=== PATIENT | male | born 1950 | race Hispanic/Latino ===

== ENCOUNTER 2018-09-15 07:32 | Inpatient (IN) | payer MEDICARE, BC ==
[2018-09-15 07:32] VITALS: BMI 28.1
[2018-09-15] MEDS ORDERED: Sodium Chloride 0.9% 500 ML IV ONE ×2 (08:12→09:09)
[2018-09-15 08:30] LABS: BASO % 0.1 % (0.0-2.0); HEMOGLOBIN 6.9 g/dL (12.0-18.0); LYMPH # 0.8 K/uL (1.0-4.3); LYMPH % 5.3 % (20.0-40.0); MEAN CELL VOLUME 121.4 fL (80.0-94.0); MEAN CORPUSCULAR HEMOGLOBIN 38.7 pg (27.0-31.0); MEAN CORPUSCULAR HGB CONC 31.9 g/dL (33.0-37.0); MEAN PLATELET VOLUME 10.6 fL (7.2-11.7); MONO # 0.8 K/uL (0.0-0.8); MONO % 5.4 % (0.0-10.0); NEUT # 13.2 K/uL (1.8-7.0); NEUT % 89.2 % (50.0-75.0); NRBC % 0.8 % (0.0-2.0); PLATELET COUNT 132 K/uL (130-400); RBC 1.79 Mil/uL (4.40-5.90); RED CELL DISTRIBUTION WIDTH 19.3 % (11.5-14.5); WHITE BLOOD COUNT 14.8 K/uL (4.8-10.8)
[2018-09-15 08:52] LABS: TROPONIN I 0.061 ng/mL (0.00-0.120)
[2018-09-15 08:57] LABS: ALB/GLOB RATIO 0.9 (1.0-2.1); ALBUMIN 2.5 g/dL (3.5-5.0); CALCIUM 8.4 mg/dl (8.6-10.4)
[2018-09-15 08:58] LABS: VENOUS BLOOD GAS PCO2 30 mmHg (40-60); VENOUS BLOOD GAS PO2 13 mm/Hg (30-55)
--- NOTE | 2018-09-15 09:00 | C.PDOC ---
History Of Present Illness Patient BIBA for evaluation of multiple falls at home (3) over the last two days. He states he thinks he fell off his recliner (both backwards and forwards) because he has a slippery cover on it. Patient admits to feeling generalized weakness, but denies chest pain, palpitations, dizziness, nausea/vomiting, facial droop, slurred speech, focal extremity weakness. PMhx of HTN, anemia, gout, PVD, cigarette smoking. - HPI Time Seen by Provider: 09/15/18 07:38 Chief Complaint (Nursing): Trauma History Per: Patient, EMS History/Exam Limitations: no limitations Onset/Duration Of Symptoms: Days (2) Location Of Injury: Right: Leg (B/L lower leg shins kin avulsions ), Left: Leg, Anterior: Leg Severity: Moderate Past Medical History Reviewed: Historical Data, Nursing Documentation, Vital Signs Vital Signs: Last Vital Signs Temp 94.4 F L 09/15/18 08:01 Pulse 58 L 09/15/18 08:07 Resp 20 09/15/18 08:07 BP 93/50 L 09/15/18 08:01 Pulse Ox 99 09/15/18 08:07 - Medical History PMH: Fractures ("I broke my Left foot 1988"), HTN Surgical History: Tonsillectomy (At 3 years old) - [facility] Procedures ANGIOPLASTY OF OTHER NON-CORONARY VESSEL(S) (05/01/14) DILATE R FEM ART W INTRALUM DEV, DRUG BLLN, PERC (02/07/16) EXCISION OF RIGHT KNEE TENDON, OPEN APPROACH (02/07/16) EXCISION OF RIGHT LOWER LEG MUSCLE, OPEN APPROACH (02/07/16) EXTIRPATION OF MATTER FROM R FEM ART, PERC APPROACH (02/07/16) INSEJ [id number] PERIPHERAL NON-CORONARY VES STENT(S) (05/01/14) INSERTION OF TWO VASCULAR STENTS (05/01/14) INTRODUCE OF OT THROMBOLYTIC INTO PERIPH ART, PERC APPROACH (02/07/16) PROCEDURE ON TWO VESSELS (05/01/14) REPLACE R LOW LEG SKIN W AUTOL SUB, FULL THICK, SHADE HANGER (02/07/16) REPLACE R LOW LEG SKIN W AUTOL SUB, PART THICK, SHADE HANGER (02/07/16) TRANSFUSE NONAUT RED BLOOD CELLS IN PERIPH VEIN, PERC (02/07/16) Family History: States: No Known Family Hx - Social History Hx Alcohol Use: Yes (2X WEEK) Hx Substance Use: No - Immunization History Hx Tetanus Toxoid Vaccination: No Hx Influenza Vaccination: No Hx Pneumococcal Vaccination: No Review Of Systems Constitutional: Positive for: Weakness (generalized). Negative for: Fever, Chills Cardiovascular: Negative for: Chest Pain, Palpitations Respiratory: Positive for: Shortness of Breath Gastrointestinal: Negative for: Nausea, Vomiting, Abdominal Pain, Diarrhea Skin: Positive for: Other (abrasions/avulsion). Negative for: Rash Neurological: Negative for: Weakness, Numbness, Incoordination, Change in Speech, Confusion, Seizures, Altered Mental Status, Headache, Dizziness Physical Exam - Physical Exam Appears: Well, Non-toxic, No Acute Distress Skin: Dry, Pale, Other (B/L upper arm ecchymoses, B/L leg skin avulsions ) Head: Normacephalic Eye(s): bilateral: Normal Inspection ((-) [place] eyes), PERRL, EOMI Ear(s): Bilateral: Normal ((-) Hicks sign ) Nose: No Deformity, No Septal Hematoma, Other (dried blood in B/L nares, no act jaki epistaxis, no deformity ) Oral Mucosa: Moist Tongue: Normal Appearing, No Laceration Neck: Normal, No Midline Cervical Tenderness, No Paracervical Tenderness, No Step Off Deformity, Supple Cardiovascular: Rhythm Irregular (bradycardic, irregularly irregular ) Respiratory: Normal Breath Sounds, No Rales, No Rhonchi, No Wheezing Gastrointestinal/Abdominal: Normal Exam, Bowel Sounds, Soft, No Tenderness Extremity: No Calf Tenderness, No Deformity, Other (chronic leg edema and skin changes ) Pulses: Left Dorsalis Pedis: Normal, Right Dorsalis Pedis: Normal Neurological/Psych: Oriented x3, Normal Speech, Normal Cognition ED Course And Treatment - Laboratory Results Result Diagrams: 09/20/18 06:46 09/23/18 06:42 ECG: Interpreted By Me, Viewed By Me (atrial fibrillation 53 bpm, left axis deviation, RBBB,Q waves, III, aVF, V2-V3) ECG Interpretation: Abnormal O2 Sat by Pulse Oximetry: 99 (RA) Pulse Ox Interpretation: Normal - CT Scan/US CT HEAD Other Rad Studies (CT/US): Read By Radiologist, Radiology Report Reviewed CT/US Interpretation: Accession No. : [id number]. Patient Name / ID : SHY REID / [id number]. Exam Date : 09/15/2018 09:07:04 ( Approved ). Study Comment : Sex / Age : M / 68Y. Creator : Ryan Potter MD. Dictator : Ryan Potter MD. Instructional Technology Facilitator : Student Support Advisor : Ryan Potter MD. Approver2 : Report Date : 09/15/2018 09:43:51. My Comment : . Date of service: 09/15/2018. PROCEDURE: CT HEAD WITHOUT CONTRAST. HISTORY: head injury. COMPARISON: Correlation made with concurrent CT scan of the maxillofacial skeleton. TECHNIQUE: Axial computed tomography images were obtai tristen through the head/brain without intravenous contrast. Radiation dose: Total exam DLP = 1290.28 mGy-cm. This CT exam was performed using one or more of the following dose reduction techniques: Automated exposure control, adjustment of the mA and/or kV according to patient size, and/or use of iterative reconstruction technique. FINDINGS: HEMORRHAGE: No acute parenchymal, subarachnoid or extra-axial hemorrhage. BRAIN: Mild-moderate chronic microvascular ischemic changes seen extending peripherally into the deep and subcortical white matter both cerebral hemispheres. No obvious parenchymal nor extra-axial mass or collection seen on this noncontrast study. Moderate generalized volume loss. VENTRICLES: No obstructive hydrocephalus. CALVARIUM: Unremarkable. PARANASAL SINUSES: Unremarkable as visualized. No significant inflammatory changes. MASTOID AIR CELLS: Unremarkable as visualized. No inflammatory changes. OTHER FINDINGS: None. IMPRESSION: No acute intracranial hemorrhage. Mild moderate chronic white matter ischemic changes. Moderate generalized volume loss. CT FACIAL Other Rad Studies (CT/US): Read By Radiologist, Radiology Report Reviewed CT/US Interpretation: Accession No. : [id number]. Patient Name / ID : SHY REID / [id number]. Exam Date : 09/15/2018 09:10:57 ( Approved ). Study Comment : Sex / Age : M / 68Y. Creator : Ryan Potter MD. Dictator : Ryan Potter MD. Instructional Technology Facilitator : Student Support Advisor : Ryan Potter MD. Approver2 : Report Date : 09/15/2018 10:00:11. My Comment : . Date of service: 09/15/2018. PROCEDURE: CT MAXILLOFACIAL BONES WITHOUT CONTRAST. HISTORY: Facial injury after fall. COMPARISON: Comparison made with concurrent CT scan maxillofacial skeleton. TECHNIQUE: Contiguous axial CT images of the maxillofacial bones were obtained. Coronal and sagittal reformats were generated. Radiation dose: Total exam DLP = 701.04 mGy-cm. This CT exam was performed using one or more of the following dose reduction techniques: Automated exposure control, adjustment of the mA and/or kV according to patient size, and/or use of iterative reconstruction technique. FINDINGS: NASAL BONES: Unremarkable. ORBITS: Unremarkable. PARANASAL SINUSES/ MASTOIDS: Mucosal thickening noted within 2 or 3 right-sided ethmoid air cells. MAXILLA: Unremarkable. MANDIBLE/ TEMPOROMANDIBULAR JOINTS: Unremarkable. SKULL BASE: Unremarkable. TEMPORAL BONES: Middle ears and mastoid grossly unremarkable. OTHER FINDINGS: Orbits and contents unremarkable. Globes intact and lenses appropriately located. There are no retrobulbar hemorrhages or collections. Optic nerves and extraocular musculature unremarkable. IMPRESSION: No evidence of acute maxillofacial skeletal fractures. Progress Note: Blood work, EKG, CT head and facial bones, UA, CXR ordered and reviewed. Patient placed under aman hugger (hypothermic). IV NS bolus, broad s pectrum antibiotics given (meets Code Sepsis criteria). Patient also hyperkalemic with QRS widening on EJG (RBBB) - IV Calcium gluconate, IV insulin + D50 amp, bicarb IV given. Patient anemic with (+) SFOB - IV PRBCs ordered. - Physician Consult Information Physician Contacted: Jayden Ruth Outcome Of Conversation: Discussed patient with PMD, he would like patient admitted under Dr. Gallardo. Patient has h/o ETOH abuse and has gone into withdrawal during prior admissions. (+) PMHx of atrial fibrillation, placed on Eliquis approx 6 months ago (?Dr. Rosas). Disposition - Disposition Disposition: HOSPITALIZED Disposition Time: 10:17 Condition: SERIOUS - Clinical Impression Clinical Impression: Severe anemia, ARF (acute renal failure), Elevated CK, Hyperkalemia, Dehydration, Elevated brain natriuretic peptide (BNP) level Critical Care Time - Critical Care Note Total Time (in mins): 50 Documented critical care: time excludes all time spent performing seperately billable procedures. Decision To Admit - Pt Status Changed To: Hospital Disposition Of: Inpatient - Admit Certification Admit to Inpatient:: After my assessment, the patient will require hospitalizat ion for at least two midnights. This is because of the severity of symptoms shown, intensity of services needed, and/or the medical risk in this patient being treated as an outpatient. - InPatient: Physician Admission Certification: I certify that this patient requires 2 or more midnights of care for the following reason:: see notes - . Bed Request Type: ICU Admitting Physician: Denise Gallardo Patient Diagnosis: Severe anemia, Occult blood in stools, ARF (acute renal failure), Dehydration, Hyperkalemia, Elevated CK, Elevated brain natriuretic peptide (BNP) level
[2018-09-15 09:03] LABS: BANDS 2 % (0-2); LYMPHOCYTE 5 % (20-40); MONOCYTE 3 % (0-10); NEUTROPHIL 90 % (50-75); NUCLEATED RED BLOOD CELL 2 % (0-0); PLATELET ESTIMATE NORMAL (NORMAL); TOTAL CELLS COUNTED 100
[2018-09-15 09:07] LABS: ANISOCYTOSIS MODERATE
[2018-09-15 09:08] LABS: HYPOCHROMIC SLIGHT; OVALOCYTES SLIGHT; POIKILOCYTOSIS SLIGHT; POLYCHROMIC SLIGHT
[2018-09-15 09:09] LABS: LARGE PLATELETS PRESENT; SCHISTOCYTES SLIGHT
[2018-09-15 09:10] LABS: GIANT PLATELETS PRESENT; TOXIC GRANULATION PRESENT
[2018-09-15] MEDS ORDERED: Cefepime 1 GM in Sodium Chloride 0.9% 50 ML IVPB STA (09:11)
[2018-09-15] MEDS ORDERED: Vancomycin 1 GM 1 GM/250 ML BAG IV STA (09:11)
[2018-09-15] MEDS ORDERED: Moxifloxacin IV 400mg/250ml NS 400 MG/250 ML BAG IV STA (09:12)
[2018-09-15] MEDS ORDERED: (Novolin R) Insulin Human Regular 100 units/ml vial IVP ONE (09:33)
[2018-09-15] MEDS ORDERED: Dextrose 50% SYRINGE Inj (50 ml) IVP STA (09:34)
[2018-09-15] MEDS ORDERED: Sodium Bicarbonate (8.4%) 50 Meq Syringe IVP ONE (09:34)
--- NOTE | 2018-09-15 09:47 | CT ---
Date of service: 09/15/2018 PROCEDURE: CT HEAD WITHOUT CONTRAST. HISTORY: head injury COMPARISON: Correlation made with concurrent CT scan of the maxillofacial skeleton. TECHNIQUE: Axial computed tomography images were obtained through the head/brain without intravenous contrast. Radiation dose: Total exam DLP = 1290.28 mGy-cm. This CT exam was performed using one or more of the following dose reduction techniques: Automated exposure control, adjustment of the mA and/or kV according to patient size, and/or use of iterative reconstruction technique. FINDINGS: HEMORRHAGE: No acute parenchymal, subarachnoid or extra-axial hemorrhage. BRAIN: Mild-moderate chronic microvascular ischemic changes seen extending peripherally into the deep and subcortical white matter both cerebral hemispheres No obvious parenchymal nor extra-axial mass or collection seen on this noncontrast study Moderate generalized volume loss VENTRICLES: No obstructive hydrocephalus. CALVARIUM: Unremarkable. PARANASAL SINUSES: Unremarkable as visualized. No significant inflammatory changes. MASTOID AIR CELLS: Unremarkable as visualized. No inflammatory changes. OTHER FINDINGS: None. IMPRESSION: No acute intracranial hemorrhage. Mild moderate chronic white matter ischemic changes. Moderate generalized volume loss.
[2018-09-15] MEDS ORDERED: Dextrose 50% SYRINGE Inj (50 ml) ONE (09:59)
[2018-09-15] MEDS ORDERED: Calcium Gluconate 4.65 mEq/10 ml Inj ONE (09:59)
[2018-09-15] MEDS ORDERED: Sodium Bicarbonate (8.4%) 50 Meq Syringe ONE (09:59)
[2018-09-15] MEDS ORDERED: (Novolin R) Insulin Human Regular 100 units/ml vial ONE (09:59)
--- NOTE | 2018-09-15 10:03 | CT ---
Date of service: 09/15/2018 PROCEDURE: CT MAXILLOFACIAL BONES WITHOUT CONTRAST HISTORY: Facial injury after fall COMPARISON: Comparison made with concurrent CT scan maxillofacial skeleton. TECHNIQUE: Contiguous axial CT images of the maxillofacial bones were obtained. Coronal and sagittal reformats were generated. Radiation dose: Total exam DLP = 701.04 mGy-cm. This CT exam was performed using one or more of the following dose reduction techniques: Automated exposure control, adjustment of the mA and/or kV according to patient size, and/or use of iterative reconstruction technique. FINDINGS: NASAL BONES: Unremarkable. ORBITS: Unremarkable. PARANASAL SINUSES/ MASTOIDS: Mucosal thickening noted within 2 or 3 right-sided ethmoid air cells MAXILLA: Unremarkable. MANDIBLE/ TEMPOROMANDIBULAR JOINTS: Unremarkable. SKULL BASE: Unremarkable. TEMPORAL BONES: Middle ears and mastoid grossly unremarkable. OTHER FINDINGS: Orbits and contents unremarkable. Globes intact and lenses appropriately located. There are no retrobulbar hemorrhages or collections. Optic nerves and extraocular musculature unremarkable. IMPRESSION: No evidence of acute maxillofacial skeletal fractures.
[2018-09-15 10:13] LABS: SQUAMOUS EPITHIAL 1 /hpf (0-5); URINE AMORPHOUS SEDIMENT RARE /ul (<OCC); URINE BACTERIA OCC (<OCC); URINE BILIRUBIN NEGATIVE (NEGATIVE); URINE CLARITY Clear (Clear); URINE COLOR Yellow (YELLOW); URINE GLUCOSE (UA) NORMAL (Normal); URINE LEUKOCYTE ESTERASE NEG Leu/uL (Negative); URINE PROTEIN NEGATIVE (NEGATIVE); URINE UROBILINOGEN NORMAL mg/dL (0.2-1.0)
[2018-09-15 10:14] LABS: URINE BLOOD TRACE-LYSED (NEGATIVE)
[2018-09-15] MEDS ORDERED: Tetanus/Diphtheria Toxoids 0.5 ml Syringe IM ONE ×2 (10:22→10:51)
[2018-09-15 10:51] LABS: PROTHROMBIN TIME 42.7 SECONDS (9.7-12.2)
--- NOTE | 2018-09-15 10:52 | CP.PCM.CON ---
History of Present Illness - History of Present Illness History of Present Illness: Chief complaint: Frequent falls HPI: 68-year-old male brought in by ambulance because he was falling more frequently over the 3 days duration. Patient had a multiple falls front side as well as in the back. He had a multiple ecchymosis in the skin over the legs, upper extremity as well as in the face. He has some bleeding right nostril, and the gums noted. Patient is living by himself. Usually patient walking with a cane, but recently his condition got worse. He is not able to eat anything by mouth. He is also not able to drink much for 2 days Patient had a similar incident in the past at the time he had injury to the right leg which was treated conservatively and he had a scar tissues from that on the right leg. Patient is to be a heavy smoker in the past quit at least 4 years ago. I saw him in my office for evaluation of the left to pleural effusion. At that time his creatinine level was 1.7, 3 months ago. Now having increasing pain in the back. Also comparing of generalized pain. Body aches. Weakness. Patient is also taking oral anticoagulation. Past medical history: Peripheral vascular disease, atrial fibrillation, hypertension, chronic renal failure. Allergy penicillin, but able to tolerate cephalosporin as per ID. Surgical history: Patient has a surgical intervention to the right open wound in the right l eg.History of fractures. Tonsillectomy in the past. Social history: Patient used to be a smoker in the past. More than 30 pack per year history. Patient currently lives by himself. Review of system: Patient has now mild headache. But he is very weak and tired looking. Hypothermia. Chills and fever noted. Coughing present. His c/o abdominal pain. Multiple extremities skin changes noted. Excoriation present. Old healed right leg ulcer On examination: Patient is on hyperthermic blanket now. Vital signs noted, bradycardia noted. Saturation is normal. On room air 100%. Patient is thin and emaciated. Patient also has a multiple skin excoriations in the both lower extremities, right upper and right left upper extremity. Patient has dried the blood in the right nostril and the gums noted. Patient also has a dark stools Labs reviewed Hemoglobin 6.9 Also elevated potassium level noted Elevated BUN and creatinine level noted Chest x-ray nonspecific. Elevated CPK levels. No Urine analysis pending CT head is negative CT facial bones negative for fracture Assessment and plan: 68-year-old male with a history of atrial fibrillation, history of PVD, hypertension, history of gout in the past. History of smoking, and possible COPD. Patient now admitted with the recurrent fall, CAT scan of the head negative. Facial CAT scan negative also But the patient has a multiple ecchymosis. Stool guaiac positive. In my opinion, patient possibly has a GI bleed and associated with a coagulopathy secondary to anticoagulation. Will hold of the anticoagulation. Proton pump inhibitor treatment. GI evaluation. Elevated creatinine level, and potassium level noted. Will get it renal evaluation. Bicarbonate drip. Antibiotic as per ID. Breasts monitoring. Transfusion I will follow the patient. over all prognosis very poor Sepsis with hypothermia and possible dehydration Past Patient History - Tetanus Immunizations Tetanus Immunization: Refused - Past Medical History & Family History Past Medical History?: Yes - Past Social History Smoking Status: Former Smoker - CARDIAC Hx Hypertension: Yes - PULMONARY Hx Respiratory Disorders: No - NEUROLOGICAL Hx Neurological Disorder: No Hx Paralysis: No Hx Vertigo: No - HEENT Hx Deafness: (mild decrease) - RENAL Hx Chronic Kidney Disease: No - ENDOCRINE/METABOLIC Hx Endocrine Disorders: No - HEMATOLOGICAL/ONCOLOGICAL Hx Blood Disorders: No Hx Blood Transfusions: No Hx Blood Transfusion Reaction: No - INTEGUMENTARY Hx Dermatological Problems: No - MUSCULOSKELETAL/RHEUMATOLOGICAL Hx Fractures: Yes ("I broke my Left foot 1988") - GASTROINTESTINAL Hx Gastrointestinal Disorders: No - GENITOURINARY/GYNECOLOGICAL Hx Genitourinary Disorders: No - PSYCHIATRIC Hx Substance Use: No - SURGICAL HISTORY Hx Tonsillectomy: Yes (At 3 years old) - ANESTHESIA Hx Anesthesia: Yes Hx Anesthesia Reactions: No Hx Malignant Hyperthermia: No Meds Allergies/Adverse Reactions: Allergies Allergy/AdvReac Type Severity Reaction Status Date / Time Penicillins Allergy Verified 02/07/16 17:02 - Medications Medications: Current Medications Chlordiazepoxide (Librium) 0 mg PO Q6 CADY; Taper Stop: 09/19/18 11:59 Chlordiazepoxide (Librium) 25 mg PO Q4H PRN PRN Reason: Alcohol Withdrawal Pantoprazole Sodium 80 mg/ (Sodium Chloride) 100 mls @ 10 mls/hr IVPB .Q10H CADY Pantoprazole Sodium 80 mg/ (Sodium Chloride) 100 mls @ 1,200 mls/hr IV ONCE ONE Stop: 09/15/18 11:04 Results - Vital Signs Recent Vital Signs: Last Vital Signs Temp 94.4 F L 09/15/18 08:01 Pulse 59 L 09/15/18 09:50 Resp 20 09/15/18 09:50 BP 107/49 L 09/15/18 09:50 Pulse Ox 99 09/15/18 10:44 - Labs Result Diagrams: 09/15/18 08:17 09/15/18 08:17 Labs: Laboratory Results - last 24 hr 09/15/18 09/15/18 09/15/18 08:17 08:17 08:17 WBC 14.8 H D RBC 1.79 L Hgb 6.9 L Hct 21.7 L MCV 121.4 H D MCH 38.7 H MCHC 31.9 L RDW 19.3 H Plt Count 132 D MPV 10.6 Neut % (Auto) 89.2 H Lymph % (Auto) 5.3 L [place] % (Auto) 5.4 Eos % (Auto) 0.0 Baso % (Auto) 0.1 Neut # (Auto) 13.2 H Lymph # (Auto) 0.8 L [place] # (Auto) 0.8 Eos # (Auto) 0.0 Baso # (Auto) 0.0 Neutrophils % (Manual) 90 H Band Neutrophils % 2 Lymphocytes % (Manual) 5 L Monocytes % (Manual) 3 Nucleated RBC % 2 H Toxic Granulation Present Platelet Estimate Normal Large Platelets Present Giant Platelets Present Polychromasia Slight Hypochromasia (manual) Slight Poikilocytosis (manual Slight Anisocytosis (manual) Moderate Macrocytosis (manual) Moderate Ovalocytes Slight Schistocytes Slight Retic Count APTT 35 H pO2 VBG pH VBG pCO2 VBG HCO3 VBG Total CO2 VBG O2 Sat (Calc) VBG Base Excess VBG Potassium Glucose Lactate FiO2 Crit Value Called To Crit Value Called By Crit Value Read Back Blood Gas Notified Time Sodium 141 Potassium 6.7 H* D Chloride 115 H Carbon Dioxide 9 L* D Anion Gap 23 H BUN 73 H Creatinine 3.1 H Est GFR ( Amer) 24 Est GFR (Non-Af Amer) 20 Random Glucose 86 Calcium 8.4 L Total Bilirubin 1.7 H AST 84 H ALT 23 Alkaline Phosphatase 92 Total Creatine Kinase 1571 H CK-MB (Mass) 17.0 H Troponin I 0.0610 NT-Pro-B Natriuret Pep 73509 H Total Protein 5.4 L Albumin 2.5 L Globulin 2.9 Albumin/Globulin Ratio 0.9 L Venous Blood Potassium Urine Color Urine Clarity Urine pH Ur Specific [place] Urine Protein Urine Glucose (UA) Urine Ketones Urine Blood Urine Nitrate Urine Bilirubin Urine Urobilinogen Ur Leukocyte Esterase Urine WBC (Auto) Urine RBC (Auto) Ur Squamous Epith Cells Amorphous Sediment Urine Bacteria Hyaline Casts Stool Occult Blood Blood Type Antibody Screen 09/15/18 09/15/18 09/15/18 08:53 09:09 09:41 WBC RBC Hgb Hct MCV MCH MCHC RDW Plt Count MPV Neut % (Auto) Lymph % (Auto) [place] % (Auto) Eos % (Auto) Baso % (Auto) Neut # (Auto) Lymph # (Auto) [place] # (Auto) Eos # (Auto) Baso # (Auto) Neutrophils % (Manual) Band Neutrophils % Lymphocytes % (Manual) Monocytes % (Manual) Nucleated RBC % Toxic Granulation Platelet Estimate Large Platelets Giant Platelets Polychromasia Hypochromasia (manual) Poikilocytosis (manual Anisocytosis (manual) Macrocytosis (manual) Ovalocytes Schistocytes Retic Count APTT pO2 13 L VBG pH 7.20 L VBG pCO2 30 L VBG HCO3 10.8 VBG Total CO2 12.6 L VBG O2 Sat (Calc) 17.9 L VBG Base Excess -15.0 L VBG Potassium 6.6 H* Glucose 92 Lactate 5.5 H* FiO2 21.0 Crit Value Called To Mervin tolentino Crit Value Called By Vaibhav Crit Value Read Back Y Blood Gas Notified Time 856 Sodium 140.0 Potassium Chloride 118.0 H Carbon Dioxide Anion Gap BUN Creatinine Est GFR ( Amer) Est GFR (Non-Af Amer) Random Glucose Calcium Total Bilirubin AST ALT Alkaline Phosphatase Total Creatine Kinase CK-MB (Mass) Troponin I NT-Pro-B Natriuret Pep Total Protein Albumin Globulin Albumin/Globulin Ratio Venous Blood Potassium 6.6 H* Urine Color Urine Clarity Urine pH Ur Specific [place] Urine Protein Urine Glucose (UA) Urine Ketones Urine Blood Urine Nitrate Urine Bilirubin Urine Urobilinogen Ur Leukocyte Esterase Urine WBC (Auto) Urine RBC (Auto) Ur Squamous Epith Cells Amorphous Sediment Urine Bacteria Hyaline Casts Stool Occult Blood Positive H Blood Type B POSITIVE Antibody Screen Negative 09/15/18 09/15/18 09:59 10:33 WBC RBC Hgb Hct MCV MCH MCHC RDW Plt Count MPV Neut % (Auto) Lymph % (Auto) [place] % (Auto) Eos % (Auto) Baso % (Auto) Neut # (Auto) Lymph # (Auto) [place] # (Auto) Eos # (Auto) Baso # (Auto) Neutrophils % (Manual) Band Neutrophils % Lymphocytes % (Manual) Monocytes % (Manual) Nucleated RBC % Toxic Granulation Platelet Estimate Large Platelets Giant Platelets Polychromasia Hypochromasia (manual) Poikilocytosis (manual Anisocytosis (manual) Macrocytosis (manual) Ovalocytes Schistocytes Retic Count 5.1 H APTT pO2 VBG pH VBG pCO2 VBG HCO3 VBG Total CO2 VBG O2 Sat (Calc) VBG Base Excess VBG Potassium Glucose Lactate FiO2 Crit Value Called To Crit Value Called By Crit Value Read Back Blood Gas Notified Time Sodium Potassium Chloride Carbon Dioxide Anion Gap BUN Creatinine Est GFR ( Amer) Est GFR (Non-Af Amer) Random Glucose Calcium Total Bilirubin AST ALT Alkaline Phosphatase Total Creatine Kinase CK-MB (Mass) Troponin I NT-Pro-B Natriuret Pep Total Protein Albumin Globulin Albumin/Globulin Ratio Venous Blood Potassium Urine Color Yellow Urine Clarity Clear Urine pH 5.0 Ur Specific [place] 1.013 Urine Protein Negative Urine Glucose (UA) Normal Urine Ketones Negative Urine Blood Trace-lysed Urine Nitrate Negative Urine Bilirubin Negative Urine Urobilinogen Normal Ur Leukocyte Esterase Neg Urine WBC (Auto) 4 Urine RBC (Auto) 4 H Ur Squamous Epith Cells 1 Amorphous Sediment Rare H Urine Bacteria Occ H Hyaline Casts 6-10 H Stool Occult Blood Blood Type Antibody Screen
[2018-09-15 10:56] LABS: INR 3.9
[2018-09-15 10:58] LABS: IRON 69 ug/dL (49-181)
[2018-09-15] MEDS ORDERED: Pantoprazole 80 MG in Sodium Chloride 0.9% 100 ML IV ONE (11:00)
[2018-09-15] MEDS ORDERED: Phytonadione 10 mg/ml Inj (Adult) IM ONE (11:02)
[2018-09-15 11:07] LABS: % IRON SATURATION 42 (20-55); TOTAL IRON BINDING CAPACITY 164 ug/dL (250-450)
[2018-09-15] MEDS ORDERED: Phytonadione 10 mg/ml Inj (Adult) ONE (11:14)
[2018-09-15 12:04] LABS: FOLATE 3.1 ng/mL
[2018-09-15 12:32] LABS: ARTERIAL BLOOD GAS HCO3 17.8 mmol/L (21-28); ARTERIAL BLOOD GAS PCO2 21 mm/Hg (35-45); ARTERIAL BLOOD GAS PH 7.41 (7.35-7.45); ARTERIAL BLOOD GAS PO2 92 mm/Hg (80-100); ARTERIAL BLOOD GAS TCO2 13.9 mmol/L (22-28)
[2018-09-15] MEDS: Pantoprazole 80 MG in Sodium Chloride 0.9% 100 ML IVPB SCH ×2 (12:41→21:45)
--- NOTE | 2018-09-15 13:12 | CP.PCM.CON ---
History of Present Illness - History of Present Illness History of Present Illness: This is a 68 year old man with occult blood in the stool. Patient presented to the ER with frequent falling over the past three days. He also reports having back pain, body aches and weakness. He denies having nausea, vomiting, abdominal pain, heartburn and difficulty swallowing. He complains of diarrhea, three times a day, which does not contain blood but seems dark. He has never had a colonoscopy. On evaluation in the ER, he was hypothermic (94.4 degrees) and hypotensive (93/50). Blood work showed leukocytosis (14.8), anemia (6.9//21.7) with elevated MCV (121.4), acute kidney injury (BUN 73, Cr 3.1), hyperkalemia (6.7), and acidosis. Stool for occult blood was positive. Review of Systems - Review of Systems All systems: reviewed and no additional remarkable complaints except - Constitutional Constitutional: Weakness. absent: Chills, Fever - Cardiovascular Cardiovascular: absent: Chest Pain, Palpitations - Respiratory Respiratory: Dyspnea - Gastrointestinal Gastrointestinal: Diarrhea. absent: Abdominal Pain, Dysphagia, Heartburn, Hematochezia, Nausea, Vomiting - Neurological Neurological: absent: Numbness, Weakness Past Patient History - Tetanus Immunizations Tetanus Immunization: Refused - Past Medical History & Family History Past Medical History?: Yes - Past Social History Smoking Status: Former Smoker - CARDIAC Hx Hypertension: Yes - PULMONARY Hx Respiratory Disorders: No - NEUROLOGICAL Hx Neurological Disorder: No Hx Paralysis: No Hx Vertigo: No - HEENT Hx Deafness: (mild decrease) - RENAL Hx Chronic Kidney Disease: No - ENDOCRINE/METABOLIC Hx Endocrine Disorders: No - HEMATOLOGICAL/ONCOLOGICAL Hx Blood Disorders: No Hx Blood Transfusions: No Hx Blood Transfusion Reaction: No - INTEGUMENTARY Hx Dermatological Problems: No - MUSCULOSKELETAL/RHEUMATOLOGICAL Hx Fractures: Yes ("I broke my Left foot 1988") - GASTROINTESTINAL Hx Gastrointestinal Disorders: No - GENITOURINARY/GYNECOLOGICAL Hx Genitourinary Disorders: No - PSYCHIATRIC Hx Substance Use: No - SURGICAL HISTORY Hx Tonsillectomy: Yes (At 3 years old) - ANESTHESIA Hx Anesthesia: Yes Hx Anesthesia Reactions: No Hx Malignant Hyperthermia: No Meds Allergies/Adverse Reactions: Allergies Allergy/AdvReac Type Severity Reaction Status Date / Time Penicillins Allergy Verified 02/07/16 17:02 - Medications Medications: Current Medications Chlordiazepoxide (Librium) 25 mg PO Q6 CADY; Taper Stop: 09/19/18 11:59 Chlordiazepoxide (Librium) 25 mg PO Q4H PRN PRN Reason: Alcohol Withdrawal Pantoprazole Sodium 80 mg/ (Sodium Chloride) 100 mls @ 10 mls/hr IVPB .Q10H [facility] Last Admin: 09/15/18 12:41 Dose: 10 mls/hr Sodium Bicarbonate 100 meq/ (Sodium Chloride) 1,100 mls @ 75 mls/hr IV .[id number] [facility] Last Admin: 09/15/18 12:49 Dose: 75 mls/hr Physical Exam - Constitutional Appears: No Acute Distress - ENT Exam Additional comments: Dried blood right nare and lower lip - Neck Exam Neck exam: Negative for: Lymphadenopathy, Thyromegaly - Respiratory Exam Respiratory Exam: NORMAL BREATHING PATTERN. absent: Rales, Rhonchi, Wheezes - Cardiovascular Exam Cardiovascular Exam: Irregular Rhythm, +S1, +S2. absent: Gallop, Rubs, Systolic Murmur - GI/Abdominal Exam GI & Abdominal Exam: Normal Bowel Sounds, Soft. absent: Mass, Organomegaly, Tenderness - Rectal Exam Rectal Exam: Deferred - Extremities Exam Extremities exam: Negative for: calf tenderness Additional comments: Stasis dermatitis Results - Vital Signs Recent Vital Signs: Last Vital Signs Temp 96.9 F L 09/15/18 12:45 Pulse 52 L 09/15/18 12:45 Resp 22 09/15/18 12:45 BP 105/68 09/15/18 12:45 Pulse Ox 98 09/15/18 12:45 - Labs Result Diagrams: 09/15/18 08:17 09/15/18 08:17 Labs: Laboratory Results - last 24 hr 09/15/18 09/15/18 09/15/18 08:17 08:17 08:17 WBC 14.8 H D RBC 1.79 L Hgb 6.9 L Hct 21.7 L MCV 121.4 H D MCH 38.7 H MCHC 31.9 L RDW 19.3 H Plt Count 132 D MPV 10.6 Neut % (Auto) 89.2 H Lymph % (Auto) 5.3 L Hood % (Auto) 5.4 Eos % (Auto) 0.0 Baso % (Auto) 0.1 Neut # (Auto) 13.2 H Lymph # (Auto) 0.8 L Hood # (Auto) 0.8 Eos # (Auto) 0.0 Baso # (Auto) 0.0 Neutrophils % (Manual) 90 H Band Neutrophils % 2 Lymphocytes % (Manual) 5 L Monocytes % (Manual) 3 Nucleated RBC % 2 H Toxic Granulation Present Platelet Estimate Normal Large Platelets Present Giant Platelets Present Polychromasia Slight Hypochromasia (manual) Slight Poikilocytosis (manual Slight Anisocytosis (manual) Moderate Macrocytosis (manual) Moderate Ovalocytes Slight Schistocytes Slight Retic Count PT 42.7 H INR 3.9 H* APTT 35 H Puncture Site pCO2 pO2 HCO3 ABG pH ABG Total CO2 ABG O2 Saturation ABG Base Excess Zachary Test ABG Potassium VBG pH VBG pCO2 VBG HCO3 VBG Total CO2 VBG O2 Sat (Calc) VBG Base Excess VBG Potassium A-a O2 Difference Respiratory Index Glucose Lactate FiO2 Crit Value Called To Crit Value Called By Crit Value Read Back Blood Gas Notified Time Sodium 141 Potassium 6.7 H* D Chloride 115 H Carbon Dioxide 9 L* D Anion Gap 23 H BUN 73 H Creatinine 3.1 H Est GFR ( Amer) 24 Est GFR (Non-Af Amer) 20 Random Glucose 86 Calcium 8.4 L Iron TIBC % Saturation Ferritin Total Bilirubin 1.7 H AST 84 H ALT 23 Alkaline Phosphatase 92 Total Creatine Kinase 1571 H CK-MB (Mass) 17.0 H Troponin I 0.0610 NT-Pro-B Natriuret Pep 04670 H Total Protein 5.4 L Albumin 2.5 L Globulin 2.9 Albumin/Globulin Ratio 0.9 L Vitamin B12 Folate Arterial Blood Potassium Venous Blood Potassium Urine Color Urine Clarity Urine pH Ur Specific Dietrich Urine Protein Urine Glucose (UA) Urine Ketones Urine Blood Urine Nitrate Urine Bilirubin Urine Urobilinogen Ur Leukocyte Esterase Urine WBC (Auto) Urine RBC (Auto) Ur Squamous Epith Cells Amorphous Sediment Urine Bacteria Hyaline Casts Stool Occult Blood Blood Type Antibody Screen 09/15/18 09/15/18 09/15/18 08:53 09:09 09:41 WBC RBC Hgb Hct MCV MCH MCHC RDW Plt Count MPV Neut % (Auto) Lymph % (Auto) Hood % (Auto) Eos % (Auto) Baso % (Auto) Neut # (Auto) Lymph # (Auto) Hood # (Auto) Eos # (Auto) Baso # (Auto) Neutrophils % (Manual) Band Neutrophils % Lymphocytes % (Manual) Monocytes % (Manual) Nucleated RBC % Toxic Granulation Platelet Estimate Large Platelets Giant Platelets Polychromasia Hypochromasia (manual) Poikilocytosis (manual Anisocytosis (manual) Macrocytosis (manual) Ovalocytes Schistocytes Retic Count PT INR APTT Puncture Site pCO2 pO2 13 L HCO3 ABG pH ABG Total CO2 ABG O2 Saturation ABG Base Excess Zachary Test ABG Potassium VBG pH 7.20 L VBG pCO2 30 L VBG HCO3 10.8 VBG Total CO2 12.6 L VBG O2 Sat (Calc) 17.9 L VBG Base Excess -15.0 L VBG Potassium 6.6 H* A-a O2 Difference Respiratory Index Glucose 92 Lactate 5.5 H* FiO2 21.0 Crit Value Called To Mervin tolentino Crit Value Called By Vaibhav Crit Value Read Back Y Blood Gas Notified Time 856 Sodium 140.0 Potassium Chloride 118.0 H Carbon Dioxide Anion Gap BUN Creatinine Est GFR ( Amer) Est GFR (Non-Af Amer) Random Glucose Calcium Iron TIBC % Saturation Ferritin Total Bilirubin AST ALT Alkaline Phosphatase Total Creatine Kinase CK-MB (Mass) Troponin I NT-Pro-B Natriuret Pep Total Protein Albumin Globulin Albumin/Globulin Ratio Vitamin B12 Folate Arterial Blood Potassium Venous Blood Potassium 6.6 H* Urine Color Urine Clarity Urine pH Ur Specific [place] Urine Protein Urine Glucose (UA) Urine Ketones Urine Blood Urine Nitrate Urine Bilirubin Urine Urobilinogen Ur Leukocyte Esterase Urine WBC (Auto) Urine RBC (Auto) Ur Squamous Epith Cells Amorphous Sediment Urine Bacteria Hyaline Casts Stool Occult Blood Positive H Blood Type B POSITIVE Antibody Screen Negative 09/15/18 09/15/18 09/15/18 09:59 10:33 10:33 WBC RBC Hgb Hct MCV MCH MCHC RDW Plt Count MPV Neut % (Auto) Lymph % (Auto) Hood % (Auto) Eos % (Auto) Baso % (Auto) Neut # (Auto) Lymph # (Auto) Hood # (Auto) Eos # (Auto) Baso # (Auto) Neutrophils % (Manual) Band Neutrophils % Lymphocytes % (Manual) Monocytes % (Manual) Nucleated RBC % Toxic Granulation Platelet Estimate Large Platelets Giant Platelets Polychromasia Hypochromasia (manual) Poikilocytosis (manual Anisocytosis (manual) Macrocytosis (manual) Ovalocytes Schistocytes Retic Count 5.1 H PT INR APTT Puncture Site pCO2 pO2 HCO3 ABG pH ABG Total CO2 ABG O2 Saturation ABG Base Excess Zachary Test ABG Potassium VBG pH VBG pCO2 VBG HCO3 VBG Total CO2 VBG O2 Sat (Calc) VBG Base Excess VBG Potassium A-a O2 Difference Respiratory Index Glucose Lactate FiO2 Crit Value Called To Crit Value Called By Crit Value Read Back Blood Gas Notified Time Sodium Potassium Chloride Carbon Dioxide Anion Gap BUN Creatinine Est GFR ( Amer) Est GFR (Non-Af Amer) Random Glucose Calcium Iron 69 TIBC 164 L % Saturation 42 Ferritin Total Bilirubin AST ALT Alkaline Phosphatase Total Creatine Kinase CK-MB (Mass) Troponin I NT-Pro-B Natriuret Pep Total Protein Albumin Globulin Albumin/Globulin Ratio Vitamin B12 Folate Arterial Blood Potassium Venous Blood Potassium Urine Color Yellow Urine Clarity Clear Urine pH 5.0 Ur Specific [place] 1.013 Urine Protein Negative Urine Glucose (UA) Normal Urine Ketones Negative Urine Blood Trace-lysed Urine Nitrate Negative Urine Bilirubin Negative Urine Urobilinogen Normal Ur Leukocyte Esterase Neg Urine WBC (Auto) 4 Urine RBC (Auto) 4 H Ur Squamous Epith Cells 1 Amorphous Sediment Rare H Urine Bacteria Occ H Hyaline Casts 6-10 H Stool Occult Blood Blood Type Antibody Screen 09/15/18 09/15/18 10:33 12:27 WBC RBC Hgb Hct MCV MCH MCHC RDW Plt Count MPV Neut % (Auto) Lymph % (Auto) Hood % (Auto) Eos % (Auto) Baso % (Auto) Neut # (Auto) Lymph # (Auto) Hood # (Auto) Eos # (Auto) Baso # (Auto) Neutrophils % (Manual) Band Neutrophils % Lymphocytes % (Manual) Monocytes % (Manual) Nucleated RBC % Toxic Granulation Platelet Estimate Large Platelets Giant Platelets Polychromasia Hypochromasia (manual) Poikilocytosis (manual Anisocytosis (manual) Macrocytosis (manual) Ovalocytes Schistocytes Retic Count PT INR APTT Puncture Site Rb pCO2 21 L pO2 92 HCO3 17.8 L ABG pH 7.41 ABG Total CO2 13.9 L ABG O2 Saturation 100.0 H ABG Base Excess -9.1 L Zachary Test Na ABG Potassium 5.3 H VBG pH VBG pCO2 VBG HCO3 VBG Total CO2 VBG O2 Sat (Calc) VBG Base Excess VBG Potassium A-a O2 Difference 31.0 Respiratory Index 0.3 Glucose 45 L Lactate 4.5 H* FiO2 21.0 Crit Value Called To Randolph pierson Crit Value Called By Vaibhav Crit Value Read Back Y Blood Gas Notified Time 1233 Sodium 142.0 Potassium Chloride 121.0 H Carbon Dioxide Anion Gap BUN Creatinine Est GFR ( Amer) Est GFR (Non-Af Amer) Random Glucose Calcium Iron TIBC % Saturation Ferritin 104.0 Total Bilirubin AST ALT Alkaline Phosphatase Total Creatine Kinase CK-MB (Mass) Troponin I NT-Pro-B Natriuret Pep Total Protein Albumin Globulin Albumin/Globulin Ratio Vitamin B12 532 Folate 3.1 Arterial Blood Potassium 5.3 H Venous Blood Potassium Urine Color Urine Clarity Urine pH Ur Specific [place] Urine Protein Urine Glucose (UA) Urine Ketones Urine Blood Urine Nitrate Urine Bilirubin Urine Urobilinogen Ur Leukocyte Esterase Urine WBC (Auto) Urine RBC (Auto) Ur Squamous Epith Cells Amorphous Sediment Urine Bacteria Hyaline Casts Stool Occult Blood Blood Type Antibody Screen Assessment & Plan (1) Occult blood in stools Assessment and Plan: Patient has a history of diarrhea and occult blood in the stools. At this time, he is not stable enough to undergo EGD and colonosocpy. Recommend checking stool studies. Will follow. Status: Acute
--- NOTE | 2018-09-15 15:29 | RAD ---
Date of service: 09/15/2018 HISTORY: Recurrent falls COMPARISON: Comparison made with chest radiograph 04/11/2018 FINDINGS: LUNGS: Atelectasis and/or infiltrate left lung base with probable left-sided effusion. Suspect minor atelectasis and/or developing infiltrate right lung base. PLEURA: No significant pleural effusion identified, no pneumothorax apparent. CARDIOVASCULAR: There appears to be minimal the aortic atherosclerotic calcification present. Cardiomegaly. The. No pulmonary vascular congestion. OSSEOUS STRUCTURES: No significant abnormalities. VISUALIZED UPPER ABDOMEN: Normal. OTHER FINDINGS: None. IMPRESSION: Atelectasis and/or infiltrate left lung base with probable left-sided effusion. Suspect minor atelectasis and/or developing infiltrate right lung base.
--- NOTE | 2018-09-15 15:35 | RAD ---
Date of service: 09/15/2018 PROCEDURE: Radiographs of the Lumbar Spine. HISTORY: low back pain after fall COMPARISON: No prior. FINDINGS: BONES: No acute fractures... Mild dextroscoliosis centered at the L3-L4 level. DISC SPACES: Multilevel degenerative spondylosis.. Varying degrees of mild posterior disc space narrowing with endplate eburnation and large anterolateral bridging and incompletely bridging osteophyte formation present. OTHER FINDINGS: There is a endovascular stent graft overlying the left pelvis IMPRESSION: No evidence of acute fracture seen. Multilevel degenerative spondylosis
[2018-09-15 16:46] LABS: BASO # 0.2 K/uL (0.0-0.2); BASO % 1.2 % (0.0-2.0); HEMOGLOBIN 6.9 g/dL (12.0-18.0); LYMPH # 0.6 K/uL (1.0-4.3); LYMPH % 4.2 % (20.0-40.0); MEAN CORPUSCULAR HEMOGLOBIN 35.7 pg (27.0-31.0); MEAN CORPUSCULAR HGB CONC 32.2 g/dL (33.0-37.0); MEAN PLATELET VOLUME 10.8 fL (7.2-11.7); MONO # 0.7 K/uL (0.0-0.8); MONO % 4.5 % (0.0-10.0); NEUT # 13.5 K/uL (1.8-7.0); NEUT % 90.1 % (50.0-75.0); NRBC % 0.5 % (0.0-2.0); PLATELET COUNT 103 K/uL (130-400); RBC 1.92 Mil/uL (4.40-5.90); RED CELL DISTRIBUTION WIDTH 25.6 % (11.5-14.5)
[2018-09-15 17:01] LABS: ALBUMIN 2.1 g/dL (3.5-5.0); CALCIUM 7.5 mg/dl (8.6-10.4)
[2018-09-15 17:07] LABS: PROTHROMBIN TIME 46.9 SECONDS (9.7-12.2)
[2018-09-15 17:10] LABS: INR 4.3
[2018-09-15 17:18] LABS: LYMPHOCYTE 2 % (20-40); MONOCYTE 1 % (0-10); NEUTROPHIL 97 % (50-75); TOTAL CELLS COUNTED 100
[2018-09-15 17:19] LABS: ANISOCYTOSIS SLIGHT; BURR CELLS SLIGHT; HYPOCHROMIC MODERATE; MICROCYTOSIS SLIGHT; OVALOCYTES SLIGHT; PLATELET ESTIMATE DECREASED (NORMAL)
[2018-09-15 17:20] LABS: HYPERSEGMENTATION PRESENT; LARGE PLATELETS PRESENT
[2018-09-15] MEDS ORDERED: Albuterol 0.083% Inhal Sol (2.5 mg/3 mL) UD INH STA (20:28)
[2018-09-16 06:29] LABS: BASO % 0.2 % (0.0-2.0); HEMOGLOBIN 7.7 g/dL (12.0-18.0); LYMPH # 0.9 K/uL (1.0-4.3); LYMPH % 5.7 % (20.0-40.0); MEAN CELL VOLUME 105.7 fL (80.0-94.0); MEAN CORPUSCULAR HEMOGLOBIN 34.5 pg (27.0-31.0); MEAN CORPUSCULAR HGB CONC 32.6 g/dL (33.0-37.0); MEAN PLATELET VOLUME 10.9 fL (7.2-11.7); MONO # 0.5 K/uL (0.0-0.8); MONO % 3.5 % (0.0-10.0); NEUT % 90.6 % (50.0-75.0); NRBC % 0.7 % (0.0-2.0); PLATELET COUNT 104 K/uL (130-400); RBC 2.22 Mil/uL (4.40-5.90); RED CELL DISTRIBUTION WIDTH 27.3 % (11.5-14.5); WHITE BLOOD COUNT 15.5 K/uL (4.8-10.8)
[2018-09-16] MEDS: Pantoprazole 80 MG in Sodium Chloride 0.9% 100 ML IVPB SCH (06:30)
[2018-09-16 06:32] LABS: SQUAMOUS EPITHIAL 10 /hpf (0-5); URINE BACTERIA RARE (<OCC); URINE BILIRUBIN NEGATIVE (NEGATIVE); URINE BLOOD 3+ (NEGATIVE); URINE CLARITY Clear (Clear); URINE COLOR Yellow (YELLOW); URINE GLUCOSE (UA) NORMAL (Normal); URINE LEUKOCYTE ESTERASE 1+ Leu/uL (Negative); URINE PROTEIN NEGATIVE (NEGATIVE); URINE UROBILINOGEN NORMAL mg/dL (0.2-1.0)
[2018-09-16 06:51] LABS: ALBUMIN 2.3 g/dL (3.5-5.0); CALCIUM 7.4 mg/dl (8.6-10.4)
[2018-09-16 08:48] LABS: BANDS 1 % (0-2); LYMPHOCYTE 9 % (20-40); MONOCYTE 2 % (0-10); NEUTROPHIL 88 % (50-75); NUCLEATED RED BLOOD CELL 1 % (0-0); TOTAL CELLS COUNTED 100
[2018-09-16 08:49] LABS: ANISOCYTOSIS SLIGHT; BURR CELLS SLIGHT; HYPOCHROMIC SLIGHT; PLATELET ESTIMATE DECREASED (NORMAL); POIKILOCYTOSIS SLIGHT; TARGET CELLS SLIGHT
[2018-09-16] MEDS ORDERED: Cefepime IV 1 gm in Dextrose 1 GM/50 ML BAG IVPB ONE (10:00)
[2018-09-16] MEDS: Sodium Chloride 0.9% 1,000 ML IV SCH (10:00)
[2018-09-16 11:46] LABS: BASO % 0.2 % (0.0-2.0); EOS % 0.2 % (0.0-4.0); HEMOGLOBIN 7.9 g/dL (12.0-18.0); LYMPH # 0.6 K/uL (1.0-4.3); LYMPH % 3.7 % (20.0-40.0); MEAN CELL VOLUME 106.6 fL (80.0-94.0); MEAN CORPUSCULAR HEMOGLOBIN 35.2 pg (27.0-31.0); MONO # 0.5 K/uL (0.0-0.8); NEUT # 15.5 K/uL (1.8-7.0); NEUT % 92.9 % (50.0-75.0); NRBC % 0.7 % (0.0-2.0); PLATELET COUNT 108 K/uL (130-400); RBC 2.24 Mil/uL (4.40-5.90); RED CELL DISTRIBUTION WIDTH 27.7 % (11.5-14.5); WHITE BLOOD COUNT 16.7 K/uL (4.8-10.8)
[2018-09-16 12:01] LABS: INR 3.1; PROTHROMBIN TIME 33.9 SECONDS (9.7-12.2)
[2018-09-16 12:09] LABS: BANDS 1 % (0-2); LYMPHOCYTE 7 % (20-40); MONOCYTE 2 % (0-10); NEUTROPHIL 90 % (50-75); NUCLEATED RED BLOOD CELL 1 % (0-0); TOTAL CELLS COUNTED 100
[2018-09-16 12:14] LABS: ANISOCYTOSIS SLIGHT; PLATELET ESTIMATE SLIGHTLY DECREASED (NORMAL); POIKILOCYTOSIS SLIGHT
[2018-09-16 12:15] LABS: BURR CELLS SLIGHT; HYPOCHROMIC MODERATE; TEARDROP CELLS SLIGHT
[2018-09-16 12:16] LABS: OVALOCYTES SLIGHT; TARGET CELLS SLIGHT
--- NOTE | 2018-09-16 15:06 | CP.PCM.PN ---
Subjective - Date & Time of Evaluation Date of Evaluation: 09/16/18 Time of Evaluation: 15:03 - Subjective Subjective: CC: Anemia In ICU Chronic macrocytic anemia, Hgb 6.8 on admission, normal B12 and Folate, stool OB possitive. Was on anticoagulant but falls a lot, and on admission had bloody areas on his face. Too ill for GI procedures at present Can change PPI from continuous drip to bolus D/W RN- no signs of overt GI bleeding noted Objective - Vital Signs/Intake and Output Vital Signs (last 24 hours): Temp Pulse Resp BP Pulse Ox 99.0 F 72 16 96/64 L 98 09/16/18 13:43 09/16/18 13:43 09/16/18 13:43 09/16/18 13:43 09/16/18 08:58 Intake and Output: 09/16/18 09/16/18 06:59 18:59 Intake Total 1250 0 Output Total 610 Balance 640 0 - Medications Medications: Current Medications Chlordiazepoxide (Librium) 25 mg PO TID CADY; Taper Stop: 09/19/18 11:59 Last Admin: 09/16/18 13:07 Dose: 25 mg Pantoprazole Sodium 80 mg/ (Sodium Chloride) 100 mls @ 10 mls/hr IVPB .Q10H [facility] Last Admin: 09/16/18 06:30 Dose: 10 mls/hr Sodium Chloride (Sodium Chloride 0.9%) 1,000 mls @ 50 mls/hr IV .Q20H [facility] Last Admin: 09/16/18 10:00 Dose: 50 mls/hr - Labs Labs: 09/16/18 11:41 09/16/18 06:24 PT 33.9 SECONDS (9.7-12.2) H D 09/16/18 11:41 INR 3.1 H* D 09/16/18 11:41 APTT 34 SECONDS (21-34) 09/16/18 11:41 - Constitutional Appears: Chronically Ill - Respiratory Exam Respiratory Exam: NORMAL BREATHING PATTERN - Cardiovascular Exam Cardiovascular Exam: Bradycardia - GI/Abdominal Exam GI & Abdominal Exam: Soft. absent: Tenderness Assessment and Plan (1) Occult blood in stools Assessment & Plan: if pt can be stabiilized, consider EGD/colonoscopy in future No melena. Can change to bolus PPI D/W Dr Gallardo Status: Acute (2) Atrial fibrillation Assessment & Plan: Now off anticoagulant. Falls a lot. ETOH. High risk of bleeding Status: Acute (3) Chronic anemia Assessment & Plan: macrocytic anemia, chronic Status: Acute
[2018-09-17 05:26] LABS: BASO % 0.3 % (0.0-2.0); EOS % 0.1 % (0.0-4.0); HEMOGLOBIN 7.7 g/dL (12.0-18.0); LYMPH # 0.6 K/uL (1.0-4.3); LYMPH % 4.7 % (20.0-40.0); MEAN CORPUSCULAR HEMOGLOBIN 34.4 pg (27.0-31.0); MEAN CORPUSCULAR HGB CONC 33.4 g/dL (33.0-37.0); MEAN PLATELET VOLUME 10.8 fL (7.2-11.7); MONO # 0.6 K/uL (0.0-0.8); MONO % 5.1 % (0.0-10.0); NEUT # 10.7 K/uL (1.8-7.0); NEUT % 89.8 % (50.0-75.0); NRBC % 0.4 % (0.0-2.0); PLATELET COUNT 91 K/uL (130-400); RBC 2.25 Mil/uL (4.40-5.90); RED CELL DISTRIBUTION WIDTH 25.3 % (11.5-14.5); WHITE BLOOD COUNT 11.9 K/uL (4.8-10.8)
--- NOTE | 2018-09-17 05:49 | CP.PCM.CON ---
History of Present Illness - History of Present Illness History of Present Illness: Patient seen and evaluated Some dyspnea Denies chest pain This is a 68 year old man with A Fib (New or Old?) Patient presented to the ER with frequent falling over the past three days. He also reports having back pain, body aches and weakness. He denies having nausea, vomiting, abdominal pain, heartburn and difficulty swallowing. He complains of diarrhea, three times a day, which does not contain blood but seems dark. He has never had a colonoscopy. On evaluation in the ER, he was hypothermic (94.4 degrees) and hypotensive (93/50). Blood work showed leukocytosis (14.8), anemia (6.9//21.7) with elevated MCV (121.4), acute kidney injury (BUN 73, Cr 3.1), hyperkalemia (6.7), and acidosis. Stool for occult blood was positive. Review of Systems - Review of Systems All systems: reviewed and no additional remarkable complaints except - Constitutional Constitutional: Weakness. absent: Chills, Fever - Cardiovascular Cardiovascular: absent: Chest Pain, Palpitations - Respiratory Respiratory: Dyspnea - Gastrointestinal Gastrointestinal: Diarrhea. absent: Abdominal Pain, Dysphagia, Heartburn, He matochezia, Nausea, Vomiting - Neurological Neurological: absent: Numbness, Weakness Physical Exam - Constitutional Appears: No Acute Distress - ENT Exam Additional comments: Dried blood right nare and lower lip - Neck Exam Neck exam: Negative for: Lymphadenopathy, Thyromegaly - Respiratory Exam Respiratory Exam: NORMAL BREATHING PATTERN. absent: Rales, Rhonchi, Wheezes - Cardiovascular Exam Cardiovascular Exam: Irregular Rhythm, +S1, +S2. absent: Gallop, Rubs, Systolic Murmur - GI/Abdominal Exam GI & Abdominal Exam: Normal Bowel Sounds, Soft. absent: Mass, Organomegaly, Tenderness - Rectal Exam Rectal Exam: Deferred - Extremities Exam Extremities exam: Negative for: calf tenderness Additional comments: Stasis dermatitis Assessment & Plan (1) A Fib Assessment and Plan: Not a candidate for anticoagulation due to active GI bleed Check ECHO and ROMIs. Status: Acute (2) Occult blood in stools Assessment and Plan: Patient has a history of diarrhea and occult blood in the stools. At this time, he is not stable enough to undergo EGD and colonosocpy. Recommend checking stool studies. Will follow. Status: Acute Past Patient History - Tetanus Immunizations Tetanus Immunization: Refused - Past Medical History & Family History Past Medical History?: Yes - Past Social History Smoking Status: Never Smoked - CARDIAC Hx Hypertension: Yes - PULMONARY Hx Respiratory Disorders: No - NEUROLOGICAL Hx Neurological Disorder: No Hx Paralysis: No Hx Vertigo: No - HEENT Hx Deafness: (mild decrease) - RENAL Hx Chronic Kidney Disease: No - ENDOCRINE/METABOLIC Hx Endocrine Disorders: No - HEMATOLOGICAL/ONCOLOGICAL Hx Blood Disorders: No Hx Blood Transfusions: Yes Hx Blood Transfusion Reaction: No - INTEGUMENTARY Hx Dermatological Problems: Yes Other/Comment: both lower ext w/ pinkish discoloration and mult.abraisions - MUSCULOSKELETAL/RHEUMATOLOGICAL Hx Falls: Yes Hx Fractures: Yes ("I broke my Left foot 1988") - GASTROINTESTINAL Hx Gastrointestinal Disorders: No - GENITOURINARY/GYNECOLOGICAL Hx Genitourinary Disorders: No - PSYCHIATRIC Hx Substance Use: No - SURGICAL HISTORY Hx Tonsillectomy: Yes (At 3 years old) - ANESTHESIA Hx Anesthesia: Yes Hx Anesthesia Reactions: No Hx Malignant Hyperthermia: No Meds Allergies/Adverse Reactions: Allergies Allergy/AdvReac Type Severity Reaction Status Date / Time Penicillins Allergy Verified 02/07/16 17:02 - Medications Medications: Current Medications Chlordiazepoxide (Librium) 25 mg PO TID CADY; Taper Stop: 09/19/18 11:59 Last Admin: 09/16/18 17:20 Dose: 25 mg Sodium Chloride (Sodium Chloride 0.9%) 1,000 mls @ 50 mls/hr IV .Q20H [facility] Last Admin: 09/16/18 10:00 Dose: 50 mls/hr Pantoprazole Sodium (Protonix Inj) 40 mg IVP Q12H [facility] Last Admin: 09/17/18 04:00 Dose: 40 mg Results - Vital Signs Recent Vital Signs: Last Vital Signs Temp 98.7 F 09/17/18 04:00 Pulse 88 09/17/18 04:00 Resp 24 09/17/18 04:00 BP 111/59 L 09/17/18 03:46 Pulse Ox 100 09/17/18 04:00 - Labs Result Diagrams: 09/20/18 06:46 09/21/18 06:35 Labs: Laboratory Results - last 24 hr 09/15/18 09/15/18 09/16/18 08:05 09:09 06:24 WBC RBC Hgb Hct MCV MCH MCHC RDW Plt Count MPV Neut % (Auto) Lymph % (Auto) Mcdonald % (Auto) Eos % (Auto) Baso % (Auto) Neut # (Auto) Lymph # (Auto) Mcdonald # (Auto) Eos # (Auto) Baso # (Auto) Neutrophils % (Manual) Band Neutrophils % Lymphocytes % (Manual) Monocytes % (Manual) Nucleated RBC % Platelet Estimate Hypochromasia (manual) Poikilocytosis (manual Anisocytosis (manual) Macrocytosis (manual) Target Cells Tear Drop Cells Ovalocytes Anny Cells PT INR APTT Sodium Potassium Chloride Carbon Dioxide Anion Gap BUN Creatinine Est GFR ( Amer) Est GFR (Non-Af Amer) POC Glucose (mg/dL) 107 Random Glucose Calcium Phosphorus Magnesium Total Bilirubin AST ALT Alkaline Phosphatase Total Protein Albumin Globulin Albumin/Globulin Ratio Urine Color Yellow Urine Clarity Clear Urine pH 5.0 Ur Specific [place] 1.013 Urine Protein Negative Urine Glucose (UA) Normal Urine Ketones Trace Urine Blood 3+ H Urine Nitrate Negative Urine Bilirubin Negative Urine Urobilinogen Normal Ur Leukocyte Esterase 1+ H Urine WBC (Auto) 10 H Urine RBC (Auto) < 1 Ur Squamous Epith Cells 10 H Urine Bacteria Rare Blood Type B POSITIVE Antibody Screen Negative 09/16/18 09/16/18 09/16/18 06:24 06:24 09:15 WBC 15.5 H RBC 2.22 L Hgb 7.7 L Hct 23.5 L MCV 105.7 H D MCH 34.5 H MCHC 32.6 L RDW 27.3 H Plt Count 104 L MPV 10.9 Neut % (Auto) 90.6 H Lymph % (Auto) 5.7 L Mcdonald % (Auto) 3.5 Eos % (Auto) 0.0 Baso % (Auto) 0.2 Neut # (Auto) 14.0 H Lymph # (Auto) 0.9 L Mcdonald # (Auto) 0.5 Eos # (Auto) 0.0 Baso # (Auto) 0.0 Neutrophils % (Manual) 88 H Band Neutrophils % 1 Lymphocytes % (Manual) 9 L Monocytes % (Manual) 2 Nucleated RBC % 1 H Platelet Estimate Decreased L Hypochromasia (manual) Slight Poikilocytosis (manual Slight Anisocytosis (manual) Slight Macrocytosis (manual) Target Cells Slight Tear Drop Cells Ovalocytes Anny Cells Slight PT INR APTT Sodium 141 Potassium 5.1 Chloride 116 H Carbon Dioxide 17 L Anion Gap 13 BUN 80 H Creatinine 2.5 H Est GFR ( Amer) 31 Est GFR (Non-Af Amer) 26 POC Glucose (mg/dL) 104 Random Glucose 85 Calcium 7.4 L Phosphorus 3.7 Magnesium 1.8 Total Bilirubin 2.0 H AST 123 H ALT 32 Alkaline Phosphatase 78 Total Protein 4.5 L Albumin 2.3 L Globulin 2.3 Albumin/Globulin Ratio 1.0 Urine Color Urine Clarity Urine pH Ur Specific [place] Urine Protein Urine Glucose (UA) Urine Ketones Urine Blood Urine Nitrate Urine Bilirubin Urine Urobilinogen Ur Leukocyte Esterase Urine WBC (Auto) Urine RBC (Auto) Ur Squamous Epith Cells Urine Bacteria Blood Type Antibody Screen 09/16/18 09/16/18 09/17/18 11:41 11:41 05:24 WBC 16.7 H 11.9 H RBC 2.24 L 2.25 L Hgb 7.9 L 7.7 L Hct 23.9 L 23.2 L MCV 106.6 H 103.0 H D MCH 35.2 H 34.4 H MCHC 33.0 33.4 RDW 27.7 H 25.3 H Plt Count 108 L 91 L MPV 11.0 10.8 Neut % (Auto) 92.9 H 89.8 H Lymph % (Auto) 3.7 L 4.7 L Mcdonald % (Auto) 3.0 5.1 Eos % (Auto) 0.2 0.1 Baso % (Auto) 0.2 0.3 Neut # (Auto) 15.5 H 10.7 H Lymph # (Auto) 0.6 L 0.6 L Mcdonald # (Auto) 0.5 0.6 Eos # (Auto) 0.0 0.0 Baso # (Auto) 0.0 0.0 Neutrophils % (Manual) 90 H Band Neutrophils % 1 Lymphocytes % (Manual) 7 L Monocytes % (Manual) 2 Nucleated RBC % 1 H Platelet Estimate Slightly decreased L Hypochromasia (manual) Moderate Poikilocytosis (manual Slight Anisocytosis (manual) Slight Macrocytosis (manual) Slight Target Cells Slight Tear Drop Cells Slight Ovalocytes Slight [place] Cells Slight PT 33.9 H D INR 3.1 H* D APTT 34 Sodium Potassium Chloride Carbon Dioxide Anion Gap BUN Creatinine Est GFR ( Amer) Est GFR (Non-Af Amer) POC Glucose (mg/dL) Random Glucose Calcium Phosphorus Magnesium Total Bilirubin AST ALT Alkaline Phosphatase Total Protein Albumin Globulin Albumin/Globulin Ratio Urine Color Urine Clarity Urine pH Ur Specific [place] Urine Protein Urine Glucose (UA) Urine Ketones Urine Blood Urine Nitrate Urine Bilirubin Urine Urobilinogen Ur Leukocyte Esterase Urine WBC (Auto) Urine RBC (Auto) Ur Squamous Epith Cells Urine Bacteria Blood Type Antibody Screen
[2018-09-17 05:58] LABS: ALB/GLOB RATIO 0.8 (1.0-2.1); CALCIUM 7.4 mg/dl (8.6-10.4)
[2018-09-17] MEDS: Sodium Chloride 0.9% 1,000 ML IV SCH (07:06)
[2018-09-17 08:27] LABS: LYMPHOCYTE 6 % (20-40); MONOCYTE 2 % (0-10); NEUTROPHIL 92 % (50-75); NUCLEATED RED BLOOD CELL 2 % (0-0); PLATELET ESTIMATE DECREASED (NORMAL); TOTAL CELLS COUNTED 100
[2018-09-17 08:28] LABS: ANISOCYTOSIS SLIGHT; BURR CELLS SLIGHT; HYPOCHROMIC SLIGHT; POIKILOCYTOSIS SLIGHT; TEARDROP CELLS SLIGHT
--- NOTE | 2018-09-17 13:18 | CT ---
PROCEDURE: CT Abdomen and Pelvis without Oral or IV contrast. HISTORY: GI bleed / Back pain COMPARISON: None available. TECHNIQUE: Contiguous axial images of the abdomen and pelvis. No oral or IV contrast administered. Coronal and Sagittal reformats generated and reviewed. Radiation dose: Total exam DLP = 1159.15 mGy-cm. This CT exam was performed using one or more of the following dose reduction techniques: Automated exposure control, adjustment of the mA and/or kV according to patient size, and/or use of iterative reconstruction technique. FINDINGS: There is limited evaluation of the solid organs without the administration of IV contrast. LOWER THORAX: Moderate-sized bilateral pleural effusions and associated consolidation. Partially imaged cardiomegaly. Coronary artery calcifications. LIVER: Hypoattenuation of the liver compatible with hepatic steatosis. GALLBLADDER AND BILE DUCTS: Gallstones and/or sludge. PANCREAS: Fatty atrophy. SPLEEN: Unremarkable. ADRENALS: Unremarkable. KIDNEYS AND URETERS: Atrophic kidneys. The no hydronephrosis or obstructing renal calculus. Punctate nonobstructing left renal calcifications. BLADDER: Thick-walled under distended urinary bladder containing air. Meade catheter present. REPRODUCTIVE: The prostate gland measures approximately 3.4 x 4.5 cm and contains coarse calcifications. APPENDIX: The appendix appears within normal limits of caliber. No secondary signs of acute appendicitis. BOWEL: The stomach is nondistended. Lack of oral contrast limits evaluation for bowel pathology. The bowel loops appear within normal limits of caliber without evidence of intestinal obstruction. Diverticulosis without CT evidence of acute diverticulitis. PERITONEUM: Small pelvic free fluid. No definite free air. LYMPH NODES: No bulky lymphadenopathy identified. VASCULATURE: Atherosclerotic calcifications of the aorta. No aortic aneurysm. BONES: Osseous demineralization. Degenerative changes. OTHER FINDINGS: None. IMPRESSION: Moderate-sized bilateral pleural effusions and associated consolidations. Hypoattenuation of the liver compatible with hepatic steatosis. Gallstones and/or gallbladder sludge. Thick-walled under distended urinary bladder containing air. Meade catheter present. Correlate clinically including urinalysis. Diverticulosis without CT evidence of acute diverticulitis. Small pelvic free fluid. Additional findings as above.
--- NOTE | 2018-09-17 13:32 | CP.PCM.PN ---
Subjective - Date & Time of Evaluation Date of Evaluation: 09/17/18 Time of Evaluation: 13:30 - Subjective Subjective: f/u anemia No Rb., melena,, chills, SZ, tremor, hemoptysis, IBRAHIM, myalgia Objective - Vital Signs/Intake and Output Vital Signs (last 24 hours): Temp Pulse Resp BP Pulse Ox 98.3 F 48 L 17 116/52 L 100 09/17/18 12:00 09/17/18 12:00 09/17/18 12:00 09/17/18 11:46 09/17/18 12:00 Intake and Output: 09/17/18 09/17/18 06:59 18:59 Intake Total 1230 650 Output Total 860 345 Balance 370 305 - Medications Medications: Current Medications Chlordiazepoxide (Librium) 25 mg PO BID [facility]; Taper Stop: 09/19/18 11:59 Last Admin: 09/17/18 10:30 Dose: 25 mg Sodium Chloride (Sodium Chloride 0.9%) 1,000 mls @ 50 mls/hr IV .Q20H [facility] Last Admin: 09/17/18 07:06 Dose: 50 mls/hr Pantoprazole Sodium (Protonix Inj) 40 mg IVP Q12H [facility] Last Admin: 09/17/18 04:00 Dose: 40 mg - Labs Labs: 09/17/18 05:24 09/17/18 05:24 PT 33.9 SECONDS (9.7-12.2) H D 09/16/18 11:41 INR 3.1 H* D 09/16/18 11:41 APTT 34 SECONDS (21-34) 09/16/18 11:41 - Constitutional Appears: Chronically Ill - Respiratory Exam Respiratory Exam: Rhonchi - Cardiovascular Exam Cardiovascular Exam: Irregular Rhythm - GI/Abdominal Exam GI & Abdominal Exam: Normal Bowel Sounds. absent: Tenderness, Mass - Neurological Exam Neurological Exam: Alert Assessment and Plan (1) Occult blood in stools Status: Acute (2) Atrial fibrillation Status: Acute (3) COPD (chronic obstructive pulmonary disease) Status: Acute (4) Chronic anemia Assessment & Plan: No overt bleeding. Mult advanced med problems. Rec- hold scopes PPI. Follow labs. Status: Acute
--- NOTE | 2018-09-17 18:49 | CP.PCM.PN ---
Subjective - Date & Time of Evaluation Date of Evaluation: 09/16/18 Time of Evaluation: 16:00 - Subjective Subjective: Patient received a blood transfusion. Patient is more awake and responding. He is feeling hungry. No abdominal pain. Denies any nausea and vomiting. On examination: Vital signs stable. Chest good regular heart sound. Abdomen soft and nontender. Extremities significant skin excoriation noted. Right and left upper extremity skin changes noted, ecchymoses present Currently patient is off anticoagulation. Patient has had atrial flutter fibrillation, bradycardia noted. Blood pressure stable. Will continue the current IV fluid and will monitor the patient. Objective - Vital Signs/Intake and Output Vital Signs (last 24 hours): Temp Pulse Resp BP Pulse Ox 98 F 80 19 120/53 L 100 09/17/18 16:00 09/17/18 18:00 09/17/18 18:00 09/17/18 17:45 09/17/18 18:00 Intake and Output: 09/17/18 09/17/18 06:59 18:59 Intake Total 1230 1600 Output Total 860 695 Balance 370 905 - Medications Medications: Current Medications Chlordiazepoxide (Librium) 25 mg PO BID [facility]; Taper Stop: 09/19/18 11:59 Last Admin: 09/17/18 18:29 Dose: 25 mg Sodium Chloride (Sodium Chloride 0.9%) 1,000 mls @ 50 mls/hr IV .Q20H [facility] Last Admin: 09/17/18 07:06 Dose: 50 mls/hr Pantoprazole Sodium (Protonix Inj) 40 mg IVP Q12H [facility] Last Admin: 09/17/18 17:08 Dose: 40 mg - Labs Labs: 09/17/18 05:24 09/17/18 05:24 PT 33.9 SECONDS (9.7-12.2) H D 09/16/18 11:41 INR 3.1 H* D 09/16/18 11:41 APTT 34 SECONDS (21-34) 09/16/18 11:41
--- NOTE | 2018-09-17 18:51 | CP.PCM.PN ---
Subjective - Date & Time of Evaluation Date of Evaluation: 09/17/18 Time of Evaluation: 18:51 - Subjective Subjective: The patient this morning awake and responding. He's feeling well. No chest pain noted. Mild tachypnea noted. On examination: Vital signs noted. Bradycardia present. Atrial flutter fibrillation. Chest good air entry. Edema noted Labs reviewed Slight improvement in the creatinine level noted. Hemoglobin is on the low side. On IV fluid. Continue the current treatment. Monitor the H&H. Is the blood hemoglobin is low he may need a transfusion again. Will follow the patient. Off anticoagulation Objective - Vital Signs/Intake and Output Vital Signs (last 24 hours): Temp Pulse Resp BP Pulse Ox 98 F 80 19 120/53 L 100 09/17/18 16:00 09/17/18 18:00 09/17/18 18:00 09/17/18 17:45 09/17/18 18:00 Intake and Output: 09/17/18 09/17/18 06:59 18:59 Intake Total 1230 1600 Output Total 860 695 Balance 370 905 - Medications Medications: Current Medications Sodium Chloride (Sodium Chloride 0.9%) 1,000 mls @ 50 mls/hr IV .Q20H [facility] Last Admin: 09/17/18 07:06 Dose: 50 mls/hr Magnesium Sulfate/Dextrose (Magnesium Sulfate 1 Gm/100 Ml D5w) 1 gm in 100 mls @ 300 mls/hr IVPB Q30M [facility] Stop: 09/17/18 19:49 Pantoprazole Sodium (Protonix Inj) 40 mg IVP Q12H [facility] Last Admin: 09/17/18 17:08 Dose: 40 mg - Labs Labs: 09/17/18 05:24 09/17/18 05:24 PT 33.9 SECONDS (9.7-12.2) H D 09/16/18 11:41 INR 3.1 H* D 09/16/18 11:41 APTT 34 SECONDS (21-34) 09/16/18 11:41
[2018-09-17] MEDS: Magnesium Sulfate 1 gm in D5W 1 GM/100 ML BAG IVPB SCH ×2 (19:04→20:10)
--- NOTE | 2018-09-17 20:09 | CP.PCM.CON ---
History of Present Illness - History of Present Illness History of Present Illness: INFECTIOUS DISEASE CONSULTATION YULY FONSECA MD,FACP ICU 09/16/2018 CHART REVIEWED PT EXAMINED CASE DISCUSSED 68-year-old male brought in by ambulance because he was falling more frequently over the 3 days duration. Patient had a multiple falls front side as well as in the back. He had a multiple ecchymosis in the skin over the legs, upper extremity as well as in the face. He has some bleeding right nostril, and the gums noted. Patient is living by himself. Usually patient walking with a cane, but recently his condition got worse. He is not able to eat anything by mouth. He is also not able to drink much for 2 days Patient had a similar incident in the past at the time he had injury to the right leg which was treated conservatively and he had a scar tissues from that on the right leg. Patient is to be a heavy smoker in the past quit at least 4 years ago. I saw him in my office for evaluation of the left to pleural effusion. At that time his creatinine level was 1.7, 3 months ago. Now having increasing pain in the back. Also comparing of generalized pain. Body aches. Weakness. Patient is also taking oral anticoagulation. Past medical history: Peripheral vascular disease, atrial fibrillation, hypertension, chronic renal failure, ETOH, STILL SMOKES AND NONCOMPLIANT Allergy penicillin, but able to tolerate cephalosporin. Surgical history: Patient has a surgical intervention to the right open wound in the right leg.History of fractures. Tonsillectomy in the past. Social history: Patient used to be a smoker in the past. More than 30 pack per year history. Patient currently lives by himself. Review of system: Patient has now mild headache. But he is very weak and tired looking. Hypothermia. Chills and fever noted. Coughing present. His c/o abdominal pain. Multiple extremities skin changes noted. Excoriation present. Old healed right leg ulcer On examination: Patient is on hyperthermic blanket now. Vital signs noted, bradycardia noted. Saturation is normal. On room air 100%. Patient is thin and emaciated. Patient also has a multiple skin excoriations in the both lower extremities, right upper and right left upper extremity. Patient has dried the blood in the right nostril and the gums noted. Patient also has a dark stools Labs reviewed Hemoglobin 6.9 Also elevated potassium level noted Elevated BUN and creatinine level noted Chest x-ray nonspecific. Elevated CPK levels. No Urine analysis pending CT head is negative CT facial bones negative for fracture Assessment and plan: 68-year-old male with a history of atrial fibrillation, history of PVD, hypertension, history of gout in the past. History of smoking, and possible COPD. Patient now admitted with the recurrent fall, CAT scan of the head negative. Facial CAT scan negative also But the patient has a multiple ecchymosis. Stool guaiac positive. In my opinion, patient possibly has a GI bleed and associated with a co agulopathy secondary to anticoagulation. Will hold of the anticoagulation. Proton pump inhibitor treatment. GI evaluation. Elevated creatinine level, and potassium level noted. Will get it renal evaluation. Bicarbonate drip. AntibioticS: VANCOMYCIN AND CEFEPIME monitoring. Transfusion I will follow the patient. over all prognosis very poor Sepsis with hypothermia and possible dehydration Present on Admission - Present on Admission Any Indicators Present on Admission: No History of DVT/PE: No History of Uncontrolled Diabetes: No Urinary Catheter: No Decubitus Ulcer Present: No Past Patient History - Tetanus Immunizations Tetanus Immunization: Refused - Past Medical History & Family History Past Medical History?: Yes - Past Social History Smoking Status: Former Smoker - CARDIAC Hx Hypertension: Yes - PULMONARY Hx Respiratory Disorders: No - NEUROLOGICAL Hx Neurological Disorder: No Hx Paralysis: No Hx Vertigo: No - HEENT Hx Deafness: (mild decrease) - RENAL Hx Chronic Kidney Disease: No - ENDOCRINE/METABOLIC Hx Endocrine Disorders: No - HEMATOLOGICAL/ONCOLOGICAL Hx Blood Disorders: No Hx Blood Transfusions: No Hx Blood Transfusion Reaction: No - INTEGUMENTARY Hx Dermatological Problems: No - MUSCULOSKELETAL/RHEUMATOLOGICAL Hx Fractures: Yes ("I broke my Left foot 1988") - GASTROINTESTINAL Hx Gastrointestinal Disorders: No - GENITOURINARY/GYNECOLOGICAL Hx Genitourinary Disorders: No - PSYCHIATRIC Hx Substance Use: No - SURGICAL HISTORY Hx Tonsillectomy: Yes (At 3 years old) - ANESTHESIA Hx Anesthesia: Yes Hx Anesthesia Reactions: No Hx Malignant Hyperthermia: No Meds Allergies/Adverse Reactions: Allergies Allergy/AdvReac Type Severity Reaction Status Date / Time Penicillins Allergy Verified 02/07/16 17:02 Results - Vital Signs Recent Vital Signs: Last Vital Signs Temp 94.4 F L 09/15/18 08:01 Pulse 59 L 09/15/18 09:50 Resp 20 09/15/18 09:50 BP 107/49 L 09/15/18 09:50 Pulse Ox 99 09/15/18 10:44 - Labs Result Diagrams: 09/15/18 08:17 09/15/18 08:17 Labs: Laboratory Results - last 24 hr 09/15/18 09/15/18 09/15/18 08:17 08:17 08:17 WBC 14.8 H D RBC 1.79 L Hgb 6.9 L Hct 21.7 L MCV 121.4 H D MCH 38.7 H MCHC 31.9 L RDW 19.3 H Plt Count 132 D MPV 10.6 Neut % (Auto) 89.2 H Lymph % (Auto) 5.3 L [place] % (Auto) 5.4 Eos % (Auto) 0.0 Baso % (Auto) 0.1 Neut # (Auto) 13.2 H Lymph # (Auto) 0.8 L [place] # (Auto) 0.8 Eos # (Auto) 0.0 Baso # (Auto) 0.0 Neutrophils % (Manual) 90 H Band Neutrophils % 2 Lymphocytes % (Manual) 5 L Monocytes % (Manual) 3 Nucleated RBC % 2 H Toxic Granulation Present Platelet Estimate Normal Large Platelets Present Giant Platelets Present Polychromasia Slight Hypochromasia (manual) Slight Poikilocytosis (manual Slight Anisocytosis (manual) Moderate Macrocytosis (manual) Moderate Ovalocytes Slight Schistocytes Slight APTT 35 H pO2 VBG pH VBG pCO2 VBG HCO3 VBG Total CO2 VBG O2 Sat (Calc) VBG Base Excess VBG Potassium Glucose Lactate FiO2 Crit Value Called To Crit Value Called By Crit Value Read Back Blood Gas Notified Time Sodium 141 Potassium 6.7 H* D Chloride 115 H Carbon Dioxide 9 L* D Anion Gap 23 H BUN 73 H Creatinine 3.1 H Est GFR ( Amer) 24 Est GFR (Non-Af Amer) 20 Random Glucose 86 Calcium 8.4 L Total Bilirubin 1.7 H AST 84 H ALT 23 Alkaline Phosphatase 92 Total Creatine Kinase 1571 H CK-MB (Mass) 17.0 H Troponin I 0.0610 NT-Pro-B Natriuret Pep 77500 H Total Protein 5.4 L Albumin 2.5 L Globulin 2.9 Albumin/Globulin Ratio 0.9 L Venous Blood Potassium Urine Color Urine Clarity Urine pH Ur Specific [place] Urine Protein Urine Glucose (UA) Urine Ketones Urine Blood Urine Nitrate Urine Bilirubin Urine Urobilinogen Ur Leukocyte Esterase Urine WBC (Auto) Urine RBC (Auto) Ur Squamous Epith Cells Amorphous Sediment Urine Bacteria Hyaline Casts Stool Occult Blood Blood Type Antibody Screen 09/15/18 09/15/18 09/15/18 08:53 09:09 09:41 WBC RBC Hgb Hct MCV MCH MCHC RDW Plt Count MPV Neut % (Auto) Lymph % (Auto) [place] % (Auto) Eos % (Auto) Baso % (Auto) Neut # (Auto) Lymph # (Auto) [place] # (Auto) Eos # (Auto) Baso # (Auto) Neutrophils % (Manual) Band Neutrophils % Lymphocytes % (Manual) Monocytes % (Manual) Nucleated RBC % Toxic Granulation Platelet Estimate Large Platelets Giant Platelets Polychromasia Hypochromasia (manual) Poikilocytosis (manual Anisocytosis (manual) Macrocytosis (manual) Ovalocytes Schistocytes APTT pO2 13 L VBG pH 7.20 L VBG pCO2 30 L VBG HCO3 10.8 VBG Total CO2 12.6 L VBG O2 Sat (Calc) 17.9 L VBG Base Excess -15.0 L VBG Potassium 6.6 H* Glucose 92 Lactate 5.5 H* FiO2 21.0 Crit Value Called To Mervin tolentino Crit Value Called By Vaibhav Crit Value Read Back Y Blood Gas Notified Time 856 Sodium 140.0 Potassium Chloride 118.0 H Carbon Dioxide Anion Gap BUN Creatinine Est GFR ( Amer) Est GFR (Non-Af Amer) Random Glucose Calcium Total Bilirubin AST ALT Alkaline Phosphatase Total Creatine Kinase CK-MB (Mass) Troponin I NT-Pro-B Natriuret Pep Total Protein Albumin Globulin Albumin/Globulin Ratio Venous Blood Potassium 6.6 H* Urine Color Urine Clarity Urine pH Ur Specific [place] Urine Protein Urine Glucose (UA) Urine Ketones Urine Blood Urine Nitrate Urine Bilirubin Urine Urobilinogen Ur Leukocyte Esterase Urine WBC (Auto) Urine RBC (Auto) Ur Squamous Epith Cells Amorphous Sediment Urine Bacteria Hyaline Casts Stool Occult Blood Positive H Blood Type B POSITIVE Antibody Screen Negative 09/15/18 09:59 WBC RBC Hgb Hct MCV MCH MCHC RDW Plt Count MPV Neut % (Auto) Lymph % (Auto) [place] % (Auto) Eos % (Auto) Baso % (Auto) Neut # (Auto) Lymph # (Auto) [place] # (Auto) Eos # (Auto) Baso # (Auto) Neutrophils % (Manual) Band Neutrophils % Lymphocytes % (Manual) Monocytes % (Manual) Nucleated RBC % Toxic Granulation Platelet Estimate Large Platelets Giant Platelets Polychromasia Hypochromasia (manual) Poikilocytosis (manual Anisocytosis (manual) Macrocytosis (manual) Ovalocytes Schistocytes APTT pO2 VBG pH VBG pCO2 VBG HCO3 VBG Total CO2 VBG O2 Sat (Calc) VBG Base Excess VBG Potassium Glucose Lactate FiO2 Crit Value Called To Crit Value Called By Crit Value Read Back Blood Gas Notified Time Sodium Potassium Chloride Carbon Dioxide Anion Gap BUN Creatinine Est GFR ( Amer) Est GFR (Non-Af Amer) Random Glucose Calcium Total Bilirubin AST ALT Alkaline Phosphatase Total Creatine Kinase CK-MB (Mass) Troponin I NT-Pro-B Natriuret Pep Total Protein Albumin Globulin Albumin/Globulin Ratio Venous Blood Potassium Urine Color Yellow Urine Clarity Clear Urine pH 5.0 Ur Specific [place] 1.013 Urine Protein Negative Urine Glucose (UA) Normal Urine Ketones Negative Urine Blood Trace-lysed Urine Nitrate Negative Urine Bilirubin Negative Urine Urobilinogen Normal Ur Leukocyte Esterase Neg Urine WBC (Auto) 4 Urine RBC (Auto) 4 H Ur Squamous Epith Cells 1 Amorphous Sediment Rare H Urine Bacteria Occ H Hyaline Casts 6-10 H Stool Occult Blood Blood Type Antibody Screen Past Patient History - Tetanus Immunizations Tetanus Immunization: Refused - Past Medical History & Family History Past Medical History?: Yes - Past Social History Smoking Status: Never Smoked - CARDIAC Hx Hypertension: Yes - PULMONARY Hx Respiratory Disorders: No - NEUROLOGICAL Hx Neurological Disorder: No Hx Paralysis: No Hx Vertigo: No - HEENT Hx Deafness: (mild decrease) - RENAL Hx Chronic Kidney Disease: No - ENDOCRINE/METABOLIC Hx Endocrine Disorders: No - HEMATOLOGICAL/ONCOLOGICAL Hx Blood Disorders: No Hx Blood Transfusions: Yes Hx Blood Transfusion Reaction: No - INTEGUMENTARY Hx Dermatological Problems: Yes Other/Comment: both lower ext w/ pinkish discoloration and mult.abraisions - MUSCULOSKELETAL/RHEUMATOLOGICAL Hx Falls: Yes Hx Fractures: Yes ("I broke my Left foot 1988") - GASTROINTESTINAL Hx Gastrointestinal Disorders: No - GENITOURINARY/GYNECOLOGICAL Hx Genitourinary Disorders: No - PSYCHIATRIC Hx Substance Use: No - SURGICAL HISTORY Hx Tonsillectomy: Yes (At 3 years old) - ANESTHESIA Hx Anesthesia: Yes Hx Anesthesia Reactions: No Hx Malignant Hyperthermia: No Meds Allergies/Adverse Reactions: Allergies Allergy/AdvReac Type Severity Reaction Status Date / Time Penicillins Allergy Verified 02/07/16 17:02 - Medications Medications: Current Medications Sodium Chloride (Sodium Chloride 0.9%) 1,000 mls @ 50 mls/hr IV .Q20H [facility] Last Admin: 09/17/18 07:06 Dose: 50 mls/hr Cefepime HCl (Maxipime Iv 1 Gm Premix) 1 gm in 50 mls @ 100 mls/hr IVPB Q24H [facility]; Protocol Pantoprazole Sodium (Protonix Inj) 40 mg IVP Q12H [facility] Last Admin: 09/17/18 17:08 Dose: 40 mg Results - Vital Signs Recent Vital Signs: Last Vital Signs Temp 98 F 09/17/18 16:00 Pulse 80 09/17/18 18:00 Resp 19 09/17/18 18:00 BP 120/53 L 09/17/18 17:45 Pulse Ox 100 09/17/18 18:00 - Labs Result Diagrams: 09/17/18 05:24 09/17/18 05:24 Labs: Laboratory Results - last 24 hr 09/17/18 09/17/18 05:24 05:24 WBC 11.9 H RBC 2.25 L Hgb 7.7 L Hct 23.2 L MCV 103.0 H D MCH 34.4 H MCHC 33.4 RDW 25.3 H Plt Count 91 L MPV 10.8 Neut % (Auto) 89.8 H Lymph % (Auto) 4.7 L [place] % (Auto) 5.1 Eos % (Auto) 0.1 Baso % (Auto) 0.3 Neut # (Auto) 10.7 H Lymph # (Auto) 0.6 L [place] # (Auto) 0.6 Eos # (Auto) 0.0 Baso # (Auto) 0.0 Neutrophils % (Manual) 92 H Lymphocytes % (Manual) 6 L Monocytes % (Manual) 2 Nucleated RBC % 2 H Platelet Estimate Decreased L Hypochromasia (manual) Slight Poikilocytosis (manual Slight Anisocytosis (manual) Slight Macrocytosis (manual) Slight Tear Drop Cells Slight Anny Cells Slight Sodium 142 Potassium 4.2 Chloride 118 H Carbon Dioxide 20 L Anion Gap 8 L BUN 75 H Creatinine 2.1 H Est GFR ( Amer) 38 Est GFR (Non-Af Amer) 31 Random Glucose 112 H Calcium 7.4 L Phosphorus 2.1 L Magnesium 1.5 L Total Bilirubin 1.2 AST 83 H D ALT 32 Alkaline Phosphatase 69 Total Protein 4.5 L Albumin 2.0 L Globulin 2.5 Albumin/Globulin Ratio 0.8 L
--- NOTE | 2018-09-17 20:11 | CP.PCM.PN ---
Subjective - Date & Time of Evaluation Date of Evaluation: 09/17/18 Time of Evaluation: 20:10 - Subjective Subjective: INFECTIOUS DISEASE PROGRESS NOTES YULY FONSECA MD, FACP ICU #4 CHART REVIEWED PT EXAMINED TAMIE DISCUSSED He's feeling well. No chest pain noted. Mild tachypnea noted. On examination: Vital signs noted. Bradycardia present. Atrial flutter fibrillation. Chest good air entry. Edema noted Labs reviewed CONTINUE CEFEPIME 1GM IVPB OD Slight improvement in the creatinine level noted. Hemoglobin is on the low side. On IV fluid. Continue the current treatment. Monitor the H&H. Is the blood hemoglobin is low he may need a transfusion again. Will follow the patient. Off anticoagulation Objective - Vital Signs/Intake and Output Vital Signs (last 24 hours): Temp Pulse Resp BP Pulse Ox 98 F 80 19 120/53 L 100 09/17/18 16:00 09/17/18 18:00 09/17/18 18:00 09/17/18 17:45 09/17/18 18:00 Intake and Output: 09/17/18 09/18/18 18:59 06:59 Intake Total 1600 Output Total 695 Balance 905 - Medications Medications: Current Medications Sodium Chloride (Sodium Chloride 0.9%) 1,000 mls @ 50 mls/hr IV .Q20H [facility] Last Admin: 09/17/18 07:06 Dose: 50 mls/hr Cefepime HCl (Maxipime Iv 1 Gm Premix) 1 gm in 50 mls @ 100 mls/hr IVPB Q24H [facility]; Protocol Pantoprazole Sodium (Protonix Inj) 40 mg IVP Q12H [facility] Last Admin: 09/17/18 17:08 Dose: 40 mg - Labs Labs: 09/17/18 05:24 09/17/18 05:24 PT 33.9 SECONDS (9.7-12.2) H D 09/16/18 11:41 INR 3.1 H* D 09/16/18 11:41 APTT 34 SECONDS (21-34) 09/16/18 11:41
[2018-09-17] MEDS: Cefepime IV 1 gm in Dextrose 1 GM/50 ML BAG IVPB SCH (21:47)
[2018-09-18 07:08] LABS: ALB/GLOB RATIO 0.8 (1.0-2.1); ALBUMIN 2.1 g/dL (3.5-5.0); CALCIUM 7.5 mg/dl (8.6-10.4)
[2018-09-18 07:18] LABS: BASO % 0.3 % (0.0-2.0); EOS # 0.2 K/uL (0.0-0.7); EOS % 1.5 % (0.0-4.0); HEMOGLOBIN 7.5 g/dL (12.0-18.0); LYMPH # 0.9 K/uL (1.0-4.3); LYMPH % 8.5 % (20.0-40.0); MEAN CELL VOLUME 104.4 fL (80.0-94.0); MEAN CORPUSCULAR HEMOGLOBIN 35.2 pg (27.0-31.0); MEAN CORPUSCULAR HGB CONC 33.8 g/dL (33.0-37.0); MEAN PLATELET VOLUME 11.3 fL (7.2-11.7); MONO # 0.8 K/uL (0.0-0.8); MONO % 7.4 % (0.0-10.0); NEUT # 8.5 K/uL (1.8-7.0); NEUT % 82.3 % (50.0-75.0); NRBC % 0.8 % (0.0-2.0); PLATELET COUNT 92 K/uL (130-400); RBC 2.13 Mil/uL (4.40-5.90); RED CELL DISTRIBUTION WIDTH 25.3 % (11.5-14.5); WHITE BLOOD COUNT 10.3 K/uL (4.8-10.8)
[2018-09-18 08:40] LABS: BANDS 2 % (0-2); EOSINOPHIL 1 % (0-4); LYMPHOCYTE 6 % (20-40); NUCLEATED RED BLOOD CELL 2 % (0-0); TOTAL CELLS COUNTED 100
[2018-09-18 08:41] LABS: ANISOCYTOSIS MODERATE; HYPOCHROMIC SLIGHT; MONOCYTE 3 % (0-10); NEUTROPHIL 88 % (50-75); PLATELET ESTIMATE DECREASED (NORMAL)
[2018-09-18 08:42] LABS: OVALOCYTES SLIGHT; STOMATOCYTES SLIGHT
--- NOTE | 2018-09-18 12:19 | CP.PCM.PN ---
Subjective - Date & Time of Evaluation Date of Evaluation: 09/18/18 Time of Evaluation: 12:16 - Subjective Subjective: f/u anemia Receiving PRBC transfusion Says he was taking both Coumadin and Eliquis at home, and sees small red rectal blood "fom hemorrhoids" No BMs recorded in hospital Objective - Vital Signs/Intake and Output Vital Signs (last 24 hours): Temp Pulse Resp BP Pulse Ox 98.1 F 86 20 135/76 94 L 09/18/18 09:45 09/18/18 09:45 09/18/18 09:45 09/18/18 09:45 09/18/18 07:00 Intake and Output: 09/18/18 09/18/18 06:59 18:59 Intake Total 770 0 Balance 770 0 - Medications Medications: Current Medications Cefepime HCl (Maxipime Iv 1 Gm Premix) 1 gm in 50 mls @ 100 mls/hr IVPB Q24H [facility]; Protocol Last Admin: 09/17/18 21:47 Dose: 100 mls/hr Pantoprazole Sodium (Protonix Inj) 40 mg IVP Q12H [facility] Last Admin: 09/18/18 03:58 Dose: 40 mg - Labs Labs: 09/18/18 06:46 09/18/18 06:46 PT 33.9 SECONDS (9.7-12.2) H D 09/16/18 11:41 INR 3.1 H* D 09/16/18 11:41 APTT 34 SECONDS (21-34) 09/16/18 11:41 - Constitutional Appears: Unkempt, Chronically Ill - Head Exam Head Exam: NORMOCEPHALIC - Eye Exam Eye Exam: absent: Scleral icterus - Respiratory Exam Respiratory Exam: NORMAL BREATHING PATTERN - Cardiovascular Exam Cardiovascular Exam: REGULAR RHYTHM - GI/Abdominal Exam GI & Abdominal Exam: Soft. absent: Tenderness Assessment and Plan (1) Occult blood in stools Assessment & Plan: Continue PPI EGD when medically stable and INR corrected May need colonoscopy as well, if pt can cooperate Status: Acute (2) Atrial fibrillation Status: Acute (3) Chronic anemia Assessment & Plan: high MCV, now with acute drop due to acute blood loss with overanticoagulation Status: Acute
--- NOTE | 2018-09-18 14:33 | RAD ---
Date of service: 09/18/2018 HISTORY: CHF COMPARISON: 09/15/2018 FINDINGS: LUNGS: Increasing pulmonary vascular congestion. PLEURA: Bilateral pleural effusions left larger than right CARDIOVASCULAR: Cardiomegaly. Atherosclerotic calcifications identified primarily aortic arch. OSSEOUS STRUCTURES: No significant abnormalities. VISUALIZED UPPER ABDOMEN: Normal. OTHER FINDINGS: None. IMPRESSION: Worsening CHF.
--- NOTE | 2018-09-18 15:01 | CP.PCM.CON ---
History of Present Illness - History of Present Illness History of Present Illness: 68-year-old male brought in by ambulance because he was falling more frequently over the 3 days duration. Patient had a multiple falls front side as well as in the back. He had a multiple ecchymosis in the skin over the legs, upper extremity as well as in the face. He has some bleeding right nostril, and the gums noted. Patient is living by himself. Usually patient walking with a cane, but recently his condition got worse. He is not able to eat anything by mouth. He is also not able to drink much for 2 days prior to admission Patient had a similar incident in the past at the time he had injury to the right leg which was treated conservatively and he had a scar tissues from that on the right leg. Patient is to be a heavy smoker in the past quit at least 4 years ago. H/O CKD stage 3 noted Poor historian Patient was taking oral anticoagulation. Past medical history: Peripheral vascular disease, atrial fibrillation, hypertension, chronic renal failure. Allergy penicillin, but able to tolerate cephalosporin as per ID. Surgical history: Patient has a surgical intervention to the right open wound in the right leg.History of fractures. Tonsillectomy in the past. Social history: Patient used to be a smoker in the past. More than 30 pack per year history. Patient currently lives by himself. Hosp course: Received 3 units prbcs blood transfusions recently Off anticoagulation More dyspneic now Was on ARB agent at home Review of Systems - Constitutional Constitutional: Frequent Falls, Lethargy - EENT Eyes: absent: As Per HPI, Blind Spots, Blurred Vision, Change in Vision, Decreased Night Vision, Diplopia, Discharge, Dry Eye, Exophthalmos, Floaters, Irritation, Itchy Eyes, Loss of Peripheral Vision, Pain, Photophobia, Requires Corrective Lenses, Sees Flashes, Spots in Vision, Tunnel Vision, Other Visual Disturbances, Loss of Vision, Other Nose/Mouth/Throat: absent: As Per HPI, Epistaxis, Nasal Congestion, Nasal Discharge, Nasal Obstruction, Nasal Trauma, Nose Pain, Post Nasal Drip, Sinus Pain, Sinus Pressure, Bleeding Gums, Change in Voice, Dental Pain, Dry Mouth, Dysphagia, Halitosis, Hoarsness, Lip Swelling, Mouth Lesions, Mouth Pain, Odynophagia, Sore Throat, Throat Swelling, Tongue Swelling, Facial Pain, Neck Pain, Neck Mass, Other - Cardiovascular Cardiovascular: Dyspnea on Exertion, Leg Edema - Gastrointestinal Gastrointestinal: Dysphagia - Musculoskeletal Musculoskeletal: Muscle Cramps, Muscle Weakness, Myalgias - Neurological Neurological: Dizziness, Weakness Past Patient History - Tetanus Immunizations Tetanus Immunization: Refused - Past Medical History & Family History Past Medical History?: Yes Past Family History: Reviewed and not pertinent - Past Social History Smoking Status: Former Smoker Chewing Tobacco Use: No Cigar Use: No Alcohol: None Drugs: Denies - CARDIAC Hx Hypertension: Yes - PULMONARY Hx Respiratory Disorders: No - NEUROLOGICAL Hx Neurological Disorder: No Hx Paralysis: No Hx Vertigo: No - HEENT Hx Deafness: (mild decrease) - RENAL Hx Chronic Kidney Disease: No - ENDOCRINE/METABOLIC Hx Endocrine Disorders: No - HEMATOLOGICAL/ONCOLOGICAL Hx Blood Disorders: No Hx Blood Transfusions: Yes Hx Blood Transfusion Reaction: No - INTEGUMENTARY Hx Dermatological Problems: Yes Other/Comment: both lower ext w/ pinkish discoloration and mult.abraisions - MUSCULOSKELETAL/RHEUMATOLOGICAL Hx Falls: Yes Hx Fractures: Yes ("I broke my Left foot 1988") - GASTROINTESTINAL Hx Gastrointestinal Disorders: No - GENITOURINARY/GYNECOLOGICAL Hx Genitourinary Disorders: No - PSYCHIATRIC Hx Substance Use: No - SURGICAL HISTORY Hx Tonsillectomy: Yes (At 3 years old) - ANESTHESIA Hx Anesthesia: Yes Hx Anesthesia Reactions: No Hx Malignant Hyperthermia: No Meds Allergies/Adverse Reactions: Allergies Allergy/AdvReac Type Severity Reaction Status Date / Time Penicillins Allergy Verified 02/07/16 17:02 - Medications Medications: Current Medications Cefepime HCl (Maxipime Iv 1 Gm Premix) 1 gm in 50 mls @ 100 mls/hr IVPB Q24H [facility]; Protocol Last Admin: 09/17/18 21:47 Dose: 100 mls/hr Pantoprazole Sodium (Protonix Inj) 40 mg IVP Q12H [facility] Last Admin: 09/18/18 03:58 Dose: 40 mg Physical Exam - Constitutional Appears: In Acute Distress, Chronically Ill - Head Exam Head Exam: ATRAUMATIC, NORMAL INSPECTION - Eye Exam Eye Exam: EOMI, Normal appearance - Neck Exam Neck exam: Positive for: Normal Inspection. Negative for: Tenderness - Respiratory Exam Respiratory Exam: Rhonchi, Respiratory Distress - Cardiovascular Exam Cardiovascular Exam: REGULAR RHYTHM, +S1 - GI/Abdominal Exam GI & Abdominal Exam: Distended, Soft. absent: Tenderness - Extremities Exam Extremities exam: Positive for: pedal edema. Negative for: tenderness - Neurological Exam Neurological exam: Altered - Skin Skin Exam: Dry, Warm Results - Vital Signs Recent Vital Signs: Last Vital Signs Temp 98.1 F 09/18/18 09:45 Pulse 86 09/18/18 09:45 Resp 20 09/18/18 09:45 BP 135/76 09/18/18 09:45 Pulse Ox 94 L 09/18/18 07:00 - Labs Result Diagrams: 09/18/18 06:46 09/18/18 06:46 Labs: Laboratory Results - last 24 hr 09/15/18 09/18/18 09/18/18 09:09 06:46 06:46 WBC 10.3 RBC 2.13 L Hgb 7.5 L Hct 22.2 L MCV 104.4 H MCH 35.2 H MCHC 33.8 RDW 25.3 H Plt Count 92 L MPV 11.3 Neut % (Auto) 82.3 H Lymph % (Auto) 8.5 L Brooks % (Auto) 7.4 Eos % (Auto) 1.5 Baso % (Auto) 0.3 Neut # (Auto) 8.5 H Lymph # (Auto) 0.9 L Brooks # (Auto) 0.8 Eos # (Auto) 0.2 Baso # (Auto) 0.0 Neutrophils % (Manual) 88 H Band Neutrophils % 2 Lymphocytes % (Manual) 6 L Monocytes % (Manual) 3 Eosinophils % (Manual) 1 Nucleated RBC % 2 H Platelet Estimate Decreased L Hypochromasia (manual) Slight Anisocytosis (manual) Moderate Macrocytosis (manual) Slight Ovalocytes Slight Stomatocytes Slight Sodium 139 Potassium 4.5 Chloride 115 H Carbon Dioxide 19 L Anion Gap 10 BUN 63 H Creatinine 1.9 H Est GFR ( Amer) 43 Est GFR (Non-Af Amer) 35 Random Glucose 116 H Calcium 7.5 L Phosphorus 1.7 L Magnesium 2.0 Total Bilirubin 0.9 AST 44 ALT 31 Alkaline Phosphatase 73 Total Protein 4.7 L Albumin 2.1 L Globulin 2.6 Albumin/Globulin Ratio 0.8 L Blood Type B POSITIVE Antibody Screen Negative Assessment & Plan (1) Atrial fibrillation Status: Acute (2) Acute renal failure Status: Acute (3) Fluid overload due to blood transfusion Status: Acute (4) Hypertension Status: Chronic (5) CKD (chronic kidney disease) stage 3, GFR 30-59 ml/min Status: Acute - Assessment and Plan (Free Text) Plan: 1 dose IV lasix serial chemistries check for proteinuria afib management
[2018-09-18 17:06] LABS: SQUAMOUS EPITHIAL < 1 /hpf (0-5); URINE BACTERIA RARE (<OCC); URINE BILIRUBIN NEGATIVE (NEGATIVE); URINE BLOOD 2+ (NEGATIVE); URINE CLARITY Clear (Clear); URINE COLOR Yellow (YELLOW); URINE GLUCOSE (UA) NORMAL (Normal); URINE LEUKOCYTE ESTERASE NEG Leu/uL (Negative); URINE PROTEIN NEGATIVE (NEGATIVE); URINE UROBILINOGEN NORMAL mg/dL (0.2-1.0)
--- NOTE | 2018-09-18 19:10 | CARD ---
APPROVED REPORT Date of service: 09/16/2018 EXAM: Two-dimensional and M-mode echocardiogram with Doppler and color Doppler. Other Information Quality : AverageRhythm : NSR INDICATION Atrial Fibrillation COPD RISK FACTORS Hypertension M-Mode DIMENSIONS Left Atrium (MM)4.25 (2.5-4.0cm)IVSd0.91 (0.7-1.1cm) Aortic Root3.47 (2.2-3.7cm)LVDd6.12 (4.0-5.6cm) Aortic Cusp Exc.2.17 (1.5-2.0cm)PWd1.26 (0.7-1.1cm) FS (%) 30 %LVDs4.25 (2.0-3.8cm) TAPSE21.69 cmLVEF (%)57 (>50%) Aortic Valve AoV Peak Relfxzbh860.2cm/[place] GR.8mmHg Mitral Valve MV E Knyxcgpw903.9cm/sMV A Trgszhwv93.3cm/sE/A ratio3.7 TDI E/Lateral E'0.0E/Medial E'0.0 Tricuspid Valve TR Peak Dhlqddww982eg/sTR Peak Gr.13gqZfGIQX27qfCa LEFT VENTRICLE The left ventricle is normal size. There is normal left ventricular wall thickness. The left ventricular function is normal. The left ventricular ejection fraction is within the normal range. There is normal LV segmental wall motion. RIGHT VENTRICLE The right ventricle is normal size. ATRIA The left atrium is mildly dilated. AORTIC VALVE The aortic valve is normal in structure. MITRAL VALVE The mitral valve is normal in structure. Mitral regurgitation is trace to mild. TRICUSPID VALVE There is mild tricuspid regurgitation. <Conclusion> Technically limited and difficult study. Normal LV systolic function. Mildly dilated LA. Trace to mild MR Mild TR.
[2018-09-18] MEDS: Cefepime IV 1 gm in Dextrose 1 GM/50 ML BAG IVPB SCH (21:26)
--- NOTE | 2018-09-18 21:31 | CP.PCM.PN ---
Subjective - Date & Time of Evaluation Date of Evaluation: 09/18/18 Time of Evaluation: 21:29 - Subjective Subjective: This morning patient was somewhat upset. He wants to go home. But patient is having difficult time in getting up. He needs the help. Ecchymoses in the both upper extremities noted. Blood pressure stable. Bradycardia noted. Yet fibrillation present Hemoglobin is still on the low side, today he received one more unit of blood transfusion. Also received Lasix because of the shortness of breath. Is eating okay. No chest pain. Denies any cough Somewhat agitated Assessment: 68-year-old male with a history of smoking and alcoholism in the past and also now with a atrial fibrillation, GI bleed. Patient is on not on any anticoagulation. To continue to monitor. Acute renal insufficiency. Hyperkalemia improving. Patient will need a possibly rehabilitation evaluation. Will monitor the neurological status. Physical therapy recommended. Out of bed to chair. Objective - Vital Signs/Intake and Output Vital Signs (last 24 hours): Temp Pulse Resp BP Pulse Ox 98.3 F 78 20 135/76 99 09/18/18 15:00 09/18/18 16:49 09/18/18 15:00 09/18/18 16:14 09/18/18 15:00 Intake and Output: 09/18/18 09/19/18 18:59 06:59 Intake Total 365 Balance 365 - Medications Medications: Current Medications Cefepime HCl (Maxipime Iv 1 Gm Premix) 1 gm in 50 mls @ 100 mls/hr IVPB Q24H [facility]; Protocol Last Admin: 09/18/18 21:26 Dose: 100 mls/hr Pantoprazole Sodium (Protonix Inj) 40 mg IVP Q12H [facility] Last Admin: 09/18/18 16:15 Dose: 40 mg - Labs Labs: 09/18/18 06:46 09/18/18 06:46 PT 33.9 SECONDS (9.7-12.2) H D 09/16/18 11:41 INR 3.1 H* D 09/16/18 11:41 APTT 34 SECONDS (21-34) 09/16/18 11:41
[2018-09-19 06:28] LABS: BASO % 0.3 % (0.0-2.0); EOS # 0.2 K/uL (0.0-0.7); EOS % 1.6 % (0.0-4.0); HEMOGLOBIN 9.7 g/dL (12.0-18.0); LYMPH # 0.7 K/uL (1.0-4.3); LYMPH % 7.5 % (20.0-40.0); MEAN CELL VOLUME 101.7 fL (80.0-94.0); MEAN CORPUSCULAR HEMOGLOBIN 34.5 pg (27.0-31.0); MEAN CORPUSCULAR HGB CONC 33.9 g/dL (33.0-37.0); MEAN PLATELET VOLUME 11.2 fL (7.2-11.7); MONO # 1.1 K/uL (0.0-0.8); NEUT # 7.9 K/uL (1.8-7.0); NEUT % 79.6 % (50.0-75.0); NRBC % 0.8 % (0.0-2.0); PLATELET COUNT 110 K/uL (130-400); RBC 2.81 Mil/uL (4.40-5.90); RED CELL DISTRIBUTION WIDTH 24.8 % (11.5-14.5); WHITE BLOOD COUNT 9.9 K/uL (4.8-10.8)
[2018-09-19 06:44] LABS: INR 1.5; PROTHROMBIN TIME 16.6 SECONDS (9.7-12.2)
[2018-09-19 06:52] LABS: ALB/GLOB RATIO 0.9 (1.0-2.1); ALBUMIN 2.4 g/dL (3.5-5.0); CALCIUM 8.3 mg/dl (8.6-10.4)
[2018-09-19 08:32] LABS: EOSINOPHIL 1 % (0-4); LYMPHOCYTE 8 % (20-40); MONOCYTE 10 % (0-10); NEUTROPHIL 81 % (50-75); NUCLEATED RED BLOOD CELL 1 % (0-0); PLATELET ESTIMATE SLIGHTLY DECREASED (NORMAL); TOTAL CELLS COUNTED 100
[2018-09-19 08:33] LABS: ANISOCYTOSIS SLIGHT; HYPOCHROMIC SLIGHT; LARGE PLATELETS PRESENT; MICROCYTOSIS SLIGHT; POIKILOCYTOSIS SLIGHT; TARGET CELLS SLIGHT
[2018-09-19] MEDS: Multiple Vitamins Oral Solution PO SCH (09:21)
--- NOTE | 2018-09-19 10:04 | CP.PCM.PN ---
Subjective - Date & Time of Evaluation Date of Evaluation: 09/19/18 Time of Evaluation: 10:01 - Subjective Subjective: More alert Fair UO, less dyspnea post IV lasix Hg better post transfusions Creat stabilizing- possibly baseline now K controlled KAYDEN possibly contributed by ARB prior use, GI bleed Fluid overload improved Objective - Vital Signs/Intake and Output Vital Signs (last 24 hours): Temp Pulse Resp BP Pulse Ox 97.6 F 69 20 151/68 H 96 09/19/18 07:00 09/19/18 07:00 09/19/18 07:00 09/19/18 07:00 09/19/18 07:00 - Medications Medications: Current Medications Ascorbic Acid (Vitamin C 500 Mg Tab) 500 mg PO BID [facility] Last Admin: 09/19/18 09:18 Dose: 500 mg Cefepime HCl (Maxipime Iv 1 Gm Premix) 1 gm in 50 mls @ 100 mls/hr IVPB Q24H [facility]; Protocol Last Admin: 09/18/18 21:26 Dose: 100 mls/hr Multivitamins/Vitamin C (Multi-Delyn Liquid) 5 ml PO DAILY [facility] Last Admin: 09/19/18 09:21 Dose: 5 ml Pantoprazole Sodium (Protonix Inj) 40 mg IVP Q12H [facility] Last Admin: 09/19/18 03:51 Dose: 40 mg Zinc Sulfate (Zinc Sulfate 220 Mg Cap) 220 mg PO DAILY [facility] Last Admin: 09/19/18 09:18 Dose: 220 mg - Labs Labs: 09/19/18 06:24 09/19/18 06:24 PT 16.6 SECONDS (9.7-12.2) H D 09/19/18 06:24 INR 1.5 D 09/19/18 06:24 APTT 34 SECONDS (21-34) 09/16/18 11:41 - Constitutional Appears: No Acute Distress, Chronically Ill - Head Exam Head Exam: ATRAUMATIC, NORMAL INSPECTION - Eye Exam Eye Exam: EOMI, Normal appearance - Neck Exam Neck Exam: Normal Inspection. absent: Tenderness - Respiratory Exam Respiratory Exam: Rhonchi, NORMAL BREATHING PATTERN - Cardiovascular Exam Cardiovascular Exam: Irregular Rhythm, +S1 - GI/Abdominal Exam GI & Abdominal Exam: Soft. absent: Tenderness - Extremities Exam Extremities Exam: Pedal Edema. absent: Tenderness - Neurological Exam Neurological Exam: Awake, CN II-XII Intact - Skin Skin Exam: Dry, Warm Assessment and Plan (1) Atrial fibrillation Status: Acute (2) Acute renal failure Status: Acute (3) Fluid overload due to blood transfusion Status: Acute (4) Hypertension Status: Chronic (5) CKD (chronic kidney disease) stage 3, GFR 30-59 ml/min Status: Acute - Assessment and Plan (Free Text) Plan: Monitor renal function, lytes Hold diuretics now
--- NOTE | 2018-09-19 17:18 | CARD ---
APPROVED REPORT Date of service: 09/15/2018 EKG Measurement Heart [id number] <Conclusion> Atrial fibrillation with slow ventricular response Left axis deviation Low voltage QRS Right bundle branch block Inferior infarct, age undetermined Abnormal ECG
--- NOTE | 2018-09-19 17:20 | CARD ---
APPROVED REPORT Date of service: 09/15/2018 EKG Measurement Heart [id number] <Conclusion> Atrial fibrillation with slow ventricular response Left axis deviation Right bundle branch block Inferior infarct, age undetermined Anterolateral infarct, age undetermined Abnormal ECG
[2018-09-19] MEDS: Cefepime IV 1 gm in Dextrose 1 GM/50 ML BAG IVPB SCH (21:30)
[2018-09-20 06:56] LABS: HEMOGLOBIN 9.1 g/dL (12.0-18.0); MEAN CELL VOLUME 102.5 fL (80.0-94.0); MEAN CORPUSCULAR HEMOGLOBIN 34.3 pg (27.0-31.0); MEAN CORPUSCULAR HGB CONC 33.4 g/dL (33.0-37.0); MEAN PLATELET VOLUME 11.3 fL (7.2-11.7); RBC 2.65 Mil/uL (4.40-5.90); RED CELL DISTRIBUTION WIDTH 24.7 % (11.5-14.5); WHITE BLOOD COUNT 7.2 K/uL (4.8-10.8)
[2018-09-20 07:31] LABS: ALBUMIN 2.3 g/dL (3.5-5.0); AST/SGOT 27 U/L (17-59); BLOOD UREA NITROGEN 45 mg/dL (9-20); CALCIUM 8.2 mg/dl (8.6-10.4); GFR NON-AFRICAN AMERICAN 50
[2018-09-20 07:32] LABS: ALT/SGPT 30 U/L (21-72)
--- NOTE | 2018-09-20 07:43 | CP.PCM.PN ---
Subjective - Date & Time of Evaluation Date of Evaluation: 09/20/18 Time of Evaluation: 07:15 - Subjective Subjective: f/u anemia. HB 7.5 to 9.5 to 9.1 No RB, melena, fever,, SZ, IBRAHIM, cough hematuria,, hemoptysis Objective - Vital Signs/Intake and Output Vital Signs (last 24 hours): Temp Pulse Resp BP Pulse Ox 97.3 F L 71 20 155/81 H 95 09/20/18 04:18 09/20/18 04:18 09/20/18 04:18 09/20/18 04:18 09/20/18 04:18 Intake and Output: 09/20/18 09/20/18 06:59 18:59 Intake Total 290 Output Total 350 Balance -60 - Medications Medications: Current Medications Ascorbic Acid (Vitamin C 500 Mg Tab) 500 mg PO BID [facility] Last Admin: 09/19/18 17:41 Dose: 500 mg Cefepime HCl (Maxipime Iv 1 Gm Premix) 1 gm in 50 mls @ 100 mls/hr IVPB Q24H [facility]; Protocol Last Admin: 09/19/18 21:30 Dose: 100 mls/hr Multivitamins/Vitamin C (Multi-Delyn Liquid) 5 ml PO DAILY [facility] Last Admin: 09/19/18 09:21 Dose: 5 ml Pantoprazole Sodium (Protonix Inj) 40 mg IVP Q12H [facility] Last Admin: 09/20/18 03:53 Dose: 40 mg Zinc Sulfate (Zinc Sulfate 220 Mg Cap) 220 mg PO DAILY [facility] Last Admin: 09/19/18 09:18 Dose: 220 mg - Labs Labs: 09/20/18 06:46 09/20/18 07:30 PT 16.6 SECONDS (9.7-12.2) H D 09/19/18 06:24 INR 1.5 D 09/19/18 06:24 APTT 34 SECONDS (21-34) 09/16/18 11:41 - Constitutional Appears: Non-toxic - Respiratory Exam Respiratory Exam: Clear to Ausculation Bilateral - Cardiovascular Exam Cardiovascular Exam: RRR - GI/Abdominal Exam GI & Abdominal Exam: Soft, Normal Bowel Sounds. absent: Tenderness Assessment and Plan (1) Occult blood in stools Status: Acute (2) Atrial fibrillation Status: Acute (3) COPD (chronic obstructive pulmonary disease) Status: Acute (4) Chronic anemia Assessment & Plan: INR is better. Hb 9.1 Rec- follow Hb.. Will need EGD Status: Acute
[2018-09-20] MEDS: Multiple Vitamins Oral Solution PO SCH (10:33)
--- NOTE | 2018-09-20 11:35 | CP.PCM.PN ---
Subjective - Date & Time of Evaluation Date of Evaluation: 09/20/18 Time of Evaluation: 11:31 - Subjective Subjective: Feels much better KAYDEN resolving; creat decreased to 1.4 Lytes acceptable More alert, not dyspneic now No overt GI bleeding noticed Will need EGD Objective - Vital Signs/Intake and Output Vital Signs (last 24 hours): Temp Pulse Resp BP Pulse Ox 97.9 F 50 L 20 144/76 100 09/20/18 07:00 09/20/18 07:44 09/20/18 07:00 09/20/18 07:00 09/20/18 07:00 Intake and Output: 09/20/18 09/20/18 06:59 18:59 Intake Total 290 Output Total 350 Balance -60 - Medications Medications: Current Medications Ascorbic Acid (Vitamin C 500 Mg Tab) 500 mg PO BID [facility] Last Admin: 09/20/18 10:33 Dose: 500 mg Cefepime HCl (Maxipime Iv 1 Gm Premix) 1 gm in 50 mls @ 100 mls/hr IVPB Q24H [facility]; Protocol Last Admin: 09/19/18 21:30 Dose: 100 mls/hr Multivitamins/Vitamin C (Multi-Delyn Liquid) 5 ml PO DAILY [facility] Last Admin: 09/20/18 10:33 Dose: 5 ml Pantoprazole Sodium (Protonix Inj) 40 mg IVP Q12H [facility] Last Admin: 09/20/18 03:53 Dose: 40 mg Zinc Sulfate (Zinc Sulfate 220 Mg Cap) 220 mg PO DAILY [facility] Last Admin: 09/20/18 10:41 Dose: 220 mg - Labs Labs: 09/20/18 06:46 09/20/18 07:30 PT 16.6 SECONDS (9.7-12.2) H D 09/19/18 06:24 INR 1.5 D 09/19/18 06:24 APTT 34 SECONDS (21-34) 09/16/18 11:41 - Constitutional Appears: No Acute Distress, Chronically Ill - Head Exam Head Exam: ATRAUMATIC, NORMAL INSPECTION - Eye Exam Eye Exam: EOMI, Normal appearance - Neck Exam Neck Exam: Normal Inspection. absent: Tenderness - Respiratory Exam Respiratory Exam: Clear to Ausculation Bilateral, NORMAL BREATHING PATTERN - Cardiovascular Exam Cardiovascular Exam: REGULAR RHYTHM, +S1 - GI/Abdominal Exam GI & Abdominal Exam: Soft. absent: Tenderness - Extremities Exam Extremities Exam: Normal Inspection, Tenderness - Neurological Exam Neurological Exam: Awake, CN II-XII Intact - Skin Skin Exam: Dry, Warm Assessment and Plan (1) Atrial fibrillation Status: Acute (2) Acute renal failure Status: Resolved (3) Fluid overload due to blood transfusion Status: Resolved (4) Hypertension Status: Chronic (5) CKD (chronic kidney disease) stage 3, GFR 30-59 ml/min Status: Acute - Assessment and Plan (Free Text) Plan: Monitor BP, renal function- has stabilized For further GI evaluation- will need EGD Monitor for GI bleeding as well No more evidence of fluid overload
[2018-09-20] MEDS: Cefepime IV 1 gm in Dextrose 1 GM/50 ML BAG IVPB SCH (20:34)
[2018-09-21 07:07] LABS: ALB/GLOB RATIO 0.9 (1.0-2.1); ALBUMIN 2.4 g/dL (3.5-5.0); CALCIUM 8.6 mg/dl (8.6-10.4)
--- NOTE | 2018-09-21 09:52 | CP.PCM.PN ---
Subjective - Date & Time of Evaluation Date of Evaluation: 09/17/18 Time of Evaluation: 19:30 - Subjective Subjective: Patient s/p PRBC No cardiac events noted A Fib with stable hemodynamics Review of Systems - Review of Systems All systems: reviewed and no additional remarkable complaints except - Constitutional Constitutional: Weakness. absent: Chills, Fever - Cardiovascular Cardiovascular: absent: Chest Pain, Palpitations - Respiratory Respiratory: Dyspnea - Gastrointestinal Gastrointestinal: Diarrhea. absent: Abdominal Pain, Dysphagia, Heartburn, Hematochezia, Nausea, Vomiting - Neurological Neurological: absent: Numbness, Weakness Physical Exam - Constitutional Appears: No Acute Distress - ENT Exam Additional comments: Dried blood right nare and lower lip - Neck Exam Neck exam: Negative for: Lymphadenopathy, Thyromegaly - Respiratory Exam Respiratory Exam: NORMAL BREATHING PATTERN. absent: Rales, Rhonchi, Wheezes - Cardiovascular Exam Cardiovascular Exam: Irregular Rhythm, +S1, +S2. absent: Gallop, Rubs, Systolic Murmur - GI/Abdominal Exam GI & Abdominal Exam: Normal Bowel Sounds, Soft. absent: Mass, Organomegaly, Tenderness - Rectal Exam Rectal Exam: Deferred - Extremities Exam Extremities exam: Negative for: calf tenderness Additional comments: Stasis dermatitis Assessment & Plan (1) A Fib Assessment and Plan: Not a candidate for anticoagulation due to active GI bleed Check ECHO and ROMIs. Status: Acute (2) Occult blood in stools Assessment and Plan: Patient has a history of diarrhea and occult blood in the stools. At this time, he is not stable enough to undergo EGD and colonosocpy. Recommend checking stool studies. Will follow. Status: Acute Objective - Vital Signs/Intake and Output Vital Signs (last 24 hours): Temp Pulse Resp BP Pulse Ox 98 F 75 20 123/68 100 09/21/18 07:00 09/21/18 07:00 09/21/18 07:00 09/21/18 07:00 09/21/18 07:00 - Medications Medications: Current Medications Ascorbic Acid (Vitamin C 500 Mg Tab) 500 mg PO BID [facility] Last Admin: 09/20/18 17:39 Dose: 500 mg Furosemide (Lasix) 20 mg PO DAILY [facility] Last Admin: 09/20/18 17:00 Dose: 20 mg Cefepime HCl (Maxipime Iv 1 Gm Premix) 1 gm in 50 mls @ 100 mls/hr IVPB Q24H [facility]; Protocol Last Admin: 09/20/18 20:34 Dose: 100 mls/hr Multivitamins/Vitamin C (Multi-Delyn Liquid) 5 ml PO DAILY [facility] Last Admin: 09/20/18 10:33 Dose: 5 ml Pantoprazole Sodium (Protonix Inj) 40 mg IVP Q12H [facility] Last Admin: 09/21/18 04:43 Dose: 40 mg Zinc Sulfate (Zinc Sulfate 220 Mg Cap) 220 mg PO DAILY [facility] Last Admin: 09/20/18 10:41 Dose: 220 mg - Labs Labs: 09/20/18 06:46 09/21/18 06:35 PT 16.6 SECONDS (9.7-12.2) H D 09/19/18 06:24 INR 1.5 D 09/19/18 06:24 APTT 34 SECONDS (21-34) 09/16/18 11:41
--- NOTE | 2018-09-21 09:56 | CP.PCM.PN ---
Subjective - Date & Time of Evaluation Date of Evaluation: 09/20/18 Time of Evaluation: 16:35 - Subjective Subjective: Patient with episodes of Bardycardia Denies chest pain Review of Systems - Review of Systems All systems: reviewed and no additional remarkable complaints except - Constitutional Constitutional: Weakness. absent: Chills, Fever - Cardiovascular Cardiovascular: absent: Chest Pain, Palpitations - Respiratory Respiratory: Dyspnea - Gastrointestinal Gastrointestinal: Diarrhea. absent: Abdominal Pain, Dysphagia, Heartburn, Hematochezia, Nausea, Vomiting - Neurological Neurological: absent: Numbness, Weakness Physical Exam - Constitutional Appears: No Acute Distress - ENT Exam Additional comments: Dried blood right nare and lower lip - Neck Exam Neck exam: Negative for: Lymphadenopathy, Thyromegaly - Respiratory Exam Respiratory Exam: NORMAL BREATHING PATTERN. absent: Rales, Rhonchi, Wheezes - Cardiovascular Exam Cardiovascular Exam: Irregular Rhythm, +S1, +S2. absent: Gallop, Rubs, Systolic Murmur - GI/Abdominal Exam GI & Abdominal Exam: Normal Bowel Sounds, Soft. absent: Mass, Organomegaly, Tenderness - Rectal Exam Rectal Exam: Deferred - Extremities Exam Extremities exam: Negative for: calf tenderness Additional comments: Stasis dermatitis Assessment & Plan (1) A Fib Assessment and Plan: Not a candidate for anticoagulation due to active GI bleed Normal EF by ECHO and ROMIs normal Elevated ProBNP due to renal failure Status: Acute (1) Benja cardia Assessment and Plan: Check TSH EP Consult Dr. Renteria Status: Acute (2) Occult blood in stools Assessment and Plan: Patient has a history of diarrhea and occult blood in the stools. At this time, he is not stable enough to undergo EGD and colonosocpy. Recommend checking stool studies. Will follow. Status: Acute This patient assessed as low to moderate Cardiac risk for EGD and Colonoscopy Objective - Vital Signs/Intake and Output Vital Signs (last 24 hours): Temp Pulse Resp BP Pulse Ox 98 F 75 20 123/68 100 09/21/18 07:00 09/21/18 07:00 09/21/18 07:00 09/21/18 07:00 09/21/18 07:00 - Medications Medications: Current Medications Ascorbic Acid (Vitamin C 500 Mg Tab) 500 mg PO BID [facility] Last Admin: 09/20/18 17:39 Dose: 500 mg Furosemide (Lasix) 20 mg PO DAILY [facility] Last Admin: 09/20/18 17:00 Dose: 20 mg Cefepime HCl (Maxipime Iv 1 Gm Premix) 1 gm in 50 mls @ 100 mls/hr IVPB Q24H [facility]; Protocol Last Admin: 09/20/18 20:34 Dose: 100 mls/hr Multivitamins/Vitamin C (Multi-Delyn Liquid) 5 ml PO DAILY [facility] Last Admin: 09/20/18 10:33 Dose: 5 ml Pantoprazole Sodium (Protonix Inj) 40 mg IVP Q12H [facility] Last Admin: 09/21/18 04:43 Dose: 40 mg Zinc Sulfate (Zinc Sulfate 220 Mg Cap) 220 mg PO DAILY [facility] Last Admin: 09/20/18 10:41 Dose: 220 mg - Labs Labs: 09/20/18 06:46 09/21/18 06:35 PT 16.6 SECONDS (9.7-12.2) H D 09/19/18 06:24 INR 1.5 D 09/19/18 06:24 APTT 34 SECONDS (21-34) 09/16/18 11:41
--- NOTE | 2018-09-21 10:08 | CP.PCM.PN ---
Subjective - Date & Time of Evaluation Date of Evaluation: 09/21/18 Time of Evaluation: 10:04 - Subjective Subjective: COVERING DR KHAN/RENE No bleeding or melena Objective - Vital Signs/Intake and Output Vital Signs (last 24 hours): Temp Pulse Resp BP Pulse Ox 98 F 75 20 123/68 100 09/21/18 07:00 09/21/18 07:00 09/21/18 07:00 09/21/18 07:00 09/21/18 07:00 - Medications Medications: Current Medications Ascorbic Acid (Vitamin C 500 Mg Tab) 500 mg PO BID [facility] Last Admin: 09/20/18 17:39 Dose: 500 mg Furosemide (Lasix) 20 mg PO DAILY [facility] Last Admin: 09/20/18 17:00 Dose: 20 mg Cefepime HCl (Maxipime Iv 1 Gm Premix) 1 gm in 50 mls @ 100 mls/hr IVPB Q24H [facility]; Protocol Last Admin: 09/20/18 20:34 Dose: 100 mls/hr Multivitamins/Vitamin C (Multi-Delyn Liquid) 5 ml PO DAILY [facility] Last Admin: 09/20/18 10:33 Dose: 5 ml Pantoprazole Sodium (Protonix Inj) 40 mg IVP Q12H [facility] Last Admin: 09/21/18 04:43 Dose: 40 mg Zinc Sulfate (Zinc Sulfate 220 Mg Cap) 220 mg PO DAILY [facility] Last Admin: 09/20/18 10:41 Dose: 220 mg - Labs Labs: 09/20/18 06:46 09/21/18 06:35 PT 16.6 SECONDS (9.7-12.2) H D 09/19/18 06:24 INR 1.5 D 09/19/18 06:24 APTT 34 SECONDS (21-34) 09/16/18 11:41 - Constitutional Appears: No Acute Distress - Head Exam Head Exam: ATRAUMATIC, NORMOCEPHALIC - Respiratory Exam Respiratory Exam: NORMAL BREATHING PATTERN - Cardiovascular Exam Cardiovascular Exam: REGULAR RHYTHM, +S1 - GI/Abdominal Exam GI & Abdominal Exam: Soft, Normal Bowel Sounds. absent: Tenderness - Extremities Exam Extremities Exam: Normal Inspection Assessment and Plan (1) Occult blood in stools Assessment & Plan: For EGD +/- colonoscopy when cleared by Cardiology Monitor for recurrent blood loss or overt bleeding. Status: Acute (2) Chronic anemia Assessment & Plan: as above Status: Acute (3) Atrial fibrillation Assessment & Plan: as per Cardio Status: Acute
--- NOTE | 2018-09-21 10:10 | CP.PCM.PN ---
Subjective - Date & Time of Evaluation Date of Evaluation: 09/21/18 Time of Evaluation: 10:08 - Subjective Subjective: Appears same Has been rick at times No overt GI bleed noticed Creat sl higher at 1.7 Await possible EGD Objective - Vital Signs/Intake and Output Vital Signs (last 24 hours): Temp Pulse Resp BP Pulse Ox 98 F 75 20 123/68 100 09/21/18 07:00 09/21/18 07:00 09/21/18 07:00 09/21/18 07:00 09/21/18 07:00 - Medications Medications: Current Medications Ascorbic Acid (Vitamin C 500 Mg Tab) 500 mg PO BID [facility] Last Admin: 09/20/18 17:39 Dose: 500 mg Furosemide (Lasix) 20 mg PO DAILY [facility] Last Admin: 09/20/18 17:00 Dose: 20 mg Cefepime HCl (Maxipime Iv 1 Gm Premix) 1 gm in 50 mls @ 100 mls/hr IVPB Q24H [facility]; Protocol Last Admin: 09/20/18 20:34 Dose: 100 mls/hr Multivitamins/Vitamin C (Multi-Delyn Liquid) 5 ml PO DAILY [facility] Last Admin: 09/20/18 10:33 Dose: 5 ml Pantoprazole Sodium (Protonix Inj) 40 mg IVP Q12H [facility] Last Admin: 09/21/18 04:43 Dose: 40 mg Zinc Sulfate (Zinc Sulfate 220 Mg Cap) 220 mg PO DAILY [facility] Last Admin: 09/20/18 10:41 Dose: 220 mg - Labs Labs: 09/20/18 06:46 09/21/18 06:35 PT 16.6 SECONDS (9.7-12.2) H D 09/19/18 06:24 INR 1.5 D 09/19/18 06:24 APTT 34 SECONDS (21-34) 09/16/18 11:41 - Constitutional Appears: No Acute Distress, Chronically Ill - Head Exam Head Exam: ATRAUMATIC, NORMAL INSPECTION - Eye Exam Eye Exam: EOMI, Normal appearance - Neck Exam Neck Exam: Normal Inspection. absent: Tenderness - Respiratory Exam Respiratory Exam: Clear to Ausculation Bilateral, NORMAL BREATHING PATTERN - Cardiovascular Exam Cardiovascular Exam: REGULAR RHYTHM, +S1 - GI/Abdominal Exam GI & Abdominal Exam: Soft. absent: Tenderness - Extremities Exam Extremities Exam: Normal Inspection. absent: Tenderness - Neurological Exam Neurological Exam: Awake, CN II-XII Intact - Skin Skin Exam: Dry, Warm Assessment and Plan (1) Atrial fibrillation Status: Acute (2) Acute renal failure Status: Resolved (3) Fluid overload due to blood transfusion Status: Resolved (4) Hypertension Status: Chronic (5) CKD (chronic kidney disease) stage 3, GFR 30-59 ml/min Status: Acute - Assessment and Plan (Free Text) Plan: Repeat chemistries Possible EGD
[2018-09-21] MEDS: Multiple Vitamins Oral Solution PO SCH (10:38)
[2018-09-21] MEDS: Cefepime IV 1 gm in Dextrose 1 GM/50 ML BAG IVPB SCH (21:00)
[2018-09-22 09:03] LABS: ALB/GLOB RATIO 0.8 (1.0-2.1); ALBUMIN 2.5 g/dL (3.5-5.0); CALCIUM 8.8 mg/dl (8.6-10.4)
--- NOTE | 2018-09-22 10:08 | CP.PCM.PN ---
Subjective - Date & Time of Evaluation Date of Evaluation: 09/22/18 Time of Evaluation: 10:05 - Subjective Subjective: COVERING DR STANTON/BILL No bleeding. Cardiology risk documented as low to intermediate. Objective - Vital Signs/Intake and Output Vital Signs (last 24 hours): Temp Pulse Resp BP Pulse Ox 98.2 F 60 20 132/64 100 09/22/18 07:00 09/22/18 07:00 09/22/18 07:00 09/22/18 07:00 09/22/18 07:00 - Medications Medications: Current Medications Ascorbic Acid (Vitamin C 500 Mg Tab) 500 mg PO BID [facility] Last Admin: 09/21/18 17:31 Dose: 500 mg Furosemide (Lasix) 40 mg PO DAILY [facility] Last Admin: 09/21/18 11:02 Dose: 40 mg Cefepime HCl (Maxipime Iv 1 Gm Premix) 1 gm in 50 mls @ 100 mls/hr IVPB Q24H [facility]; Protocol Last Admin: 09/21/18 21:00 Dose: 100 mls/hr Multivitamins/Vitamin C (Multi-Delyn Liquid) 5 ml PO DAILY [facility] Last Admin: 09/21/18 10:38 Dose: 5 ml Pantoprazole Sodium (Protonix Inj) 40 mg IVP Q12H [facility] Last Admin: 09/22/18 06:19 Dose: 40 mg Zinc Sulfate (Zinc Sulfate 220 Mg Cap) 220 mg PO DAILY [facility] Last Admin: 09/21/18 10:29 Dose: 220 mg - Labs Labs: 09/20/18 06:46 09/22/18 07:58 PT 16.6 SECONDS (9.7-12.2) H D 09/19/18 06:24 INR 1.5 D 09/19/18 06:24 APTT 34 SECONDS (21-34) 09/16/18 11:41 - Constitutional Appears: No Acute Distress - Respiratory Exam Respiratory Exam: NORMAL BREATHING PATTERN - Cardiovascular Exam Cardiovascular Exam: Irregular Rhythm - GI/Abdominal Exam GI & Abdominal Exam: Soft, Normal Bowel Sounds. absent: Distended, Rigid, Tenderness, Mass, Rebound - Rectal Exam Rectal Exam: Deferred - Extremities Exam Extremities Exam: Normal Inspection Assessment and Plan (1) Occult blood in stools Assessment & Plan: For EGD in am as planned by Dr Stanton Cardiology risk low to intermediate Hold any anticoagulants to allow biopsies as needed. Status: Acute (2) Chronic anemia Status: Acute (3) Atrial fibrillation Status: Acute
[2018-09-22] MEDS: Multiple Vitamins Oral Solution PO SCH (10:30)
[2018-09-22] MEDS: Cefepime IV 1 gm in Dextrose 1 GM/50 ML BAG IVPB SCH (21:22)
--- NOTE | 2018-09-22 21:47 | CP.PCM.PN ---
Subjective - Date & Time of Evaluation Date of Evaluation: 09/21/18 Time of Evaluation: 19:30 - Subjective Subjective: Patient denies chest pain and dyspnea Review of Systems - Review of Systems All systems: reviewed and no additional remarkable complaints except - Constitutional Constitutional: Weakness. absent: Chills, Fever - Cardiovascular Cardiovascular: absent: Chest Pain, Palpitations - Respiratory Respiratory: Dyspnea - Gastrointestinal Gastrointestinal: Diarrhea. absent: Abdominal Pain, Dysphagia, Heartburn, Hematochezia, Nausea, Vomiting - Neurological Neurological: absent: Numbness, Weakness Physical Exam - Constitutional Appears: No Acute Distress - ENT Exam Additional comments: Dried blood right nare and lower lip - Neck Exam Neck exam: Negative for: Lymphadenopathy, Thyromegaly - Respiratory Exam Respiratory Exam: NORMAL BREATHING PATTERN. absent: Rales, Rhonchi, Wheezes - Cardiovascular Exam Cardiovascular Exam: Irregular Rhythm, +S1, +S2. absent: Gallop, Rubs, Systolic Murmur - GI/Abdominal Exam GI & Abdominal Exam: Normal Bowel Sounds, Soft. absent: Mass, Organomegaly, Tenderness - Rectal Exam Rectal Exam: Deferred - Extremities Exam Extremities exam: Negative for: calf tenderness Additional comments: Stasis dermatitis Assessment & Plan (1) A Fib Assessment and Plan: Not a candidate for anticoagulation due to active GI bleed Normal EF by ECHO and ROMIs normal Elevated ProBNP due to renal failure Status: Acute (1) Benja cardia Assessment and Plan: Check TSH EP Consult Dr. Renteria Status: Acute (2) Occult blood in stools Assessment and Plan: Patient has a history of diarrhea and occult blood in the stools. This patient assessed as low to moderate Cardiac risk for EGD and Colonoscopy Objective - Vital Signs/Intake and Output Vital Signs (last 24 hours): Temp Pulse Resp BP Pulse Ox 97.2 F L 79 18 111/66 97 09/22/18 16:00 09/22/18 16:00 09/22/18 16:00 09/22/18 16:00 09/22/18 16:00 - Medications Medications: Current Medications Ascorbic Acid (Vitamin C 500 Mg Tab) 500 mg PO BID [facility] Last Admin: 09/22/18 17:13 Dose: 500 mg Furosemide (Lasix) 40 mg PO DAILY [facility] Last Admin: 09/22/18 10:29 Dose: 40 mg Multivitamins/Vitamin C (Multi-Delyn Liquid) 5 ml PO DAILY [facility] Last Admin: 09/22/18 10:30 Dose: 5 ml Pantoprazole Sodium (Protonix Inj) 40 mg IVP Q12H [facility] Last Admin: 09/22/18 17:13 Dose: 40 mg Zinc Sulfate (Zinc Sulfate 220 Mg Cap) 220 mg PO DAILY [facility] Last Admin: 09/22/18 10:29 Dose: 220 mg - Labs Labs: 09/20/18 06:46 09/22/18 07:58 PT 16.6 SECONDS (9.7-12.2) H D 09/19/18 06:24 INR 1.5 D 09/19/18 06:24 APTT 34 SECONDS (21-34) 09/16/18 11:41
--- NOTE | 2018-09-22 21:49 | CP.PCM.PN ---
Subjective - Date & Time of Evaluation Date of Evaluation: 09/22/18 Time of Evaluation: 07:30 - Subjective Subjective: Patient with episodes of Bardycardia Denies chest pain Review of Systems - Review of Systems All systems: reviewed and no additional remarkable complaints except - Constitutional Constitutional: Weakness. absent: Chills, Fever - Cardiovascular Cardiovascular: absent: Chest Pain, Palpitations - Respiratory Respiratory: Dyspnea - Gastrointestinal Gastrointestinal: Diarrhea. absent: Abdominal Pain, Dysphagia, Heartburn, Hematochezia, Nausea, Vomiting - Neurological Neurological: absent: Numbness, Weakness Physical Exam - Constitutional Appears: No Acute Distress - ENT Exam Additional comments: Dried blood right nare and lower lip - Neck Exam Neck exam: Negative for: Lymphadenopathy, Thyromegaly - Respiratory Exam Respiratory Exam: NORMAL BREATHING PATTERN. absent: Rales, Rhonchi, Wheezes - Cardiovascular Exam Cardiovascular Exam: Irregular Rhythm, +S1, +S2. absent: Gallop, Rubs, Systolic Murmur - GI/Abdominal Exam GI & Abdominal Exam: Normal Bowel Sounds, Soft. absent: Mass, Organomegaly, Tenderness - Rectal Exam Rectal Exam: Deferred - Extremities Exam Extremities exam: Negative for: calf tenderness Additional comments: Stasis dermatitis Assessment & Plan (1) A Fib Assessment and Plan: Not a candidate for anticoagulation due to active GI bleed Normal EF by ECHO and ROMIs normal Elevated ProBNP due to renal failure Status: Acute (1) Benja cardia Assessment and Plan: Check TSH EP Consult Dr. Renteria Status: Acute (2) Occult blood in stools Assessment and Plan: Patient has a history of diarrhea and occult blood in the stools. This patient assessed as low to moderate Cardiac risk for EGD and Colonoscopy Objective - Vital Signs/Intake and Output Vital Signs (last 24 hours): Temp Pulse Resp BP Pulse Ox 97.2 F L 79 18 111/66 97 09/22/18 16:00 09/22/18 16:00 09/22/18 16:00 09/22/18 16:00 09/22/18 16:00 - Medications Medications: Current Medications Ascorbic Acid (Vitamin C 500 Mg Tab) 500 mg PO BID [facility] Last Admin: 09/22/18 17:13 Dose: 500 mg Furosemide (Lasix) 40 mg PO DAILY [facility] Last Admin: 09/22/18 10:29 Dose: 40 mg Multivitamins/Vitamin C (Multi-Delyn Liquid) 5 ml PO DAILY [facility] Last Admin: 09/22/18 10:30 Dose: 5 ml Pantoprazole Sodium (Protonix Inj) 40 mg IVP Q12H [facility] Last Admin: 09/22/18 17:13 Dose: 40 mg Zinc Sulfate (Zinc Sulfate 220 Mg Cap) 220 mg PO DAILY [facility] Last Admin: 09/22/18 10:29 Dose: 220 mg - Labs Labs: 09/20/18 06:46 09/22/18 07:58 PT 16.6 SECONDS (9.7-12.2) H D 09/19/18 06:24 INR 1.5 D 09/19/18 06:24 APTT 34 SECONDS (21-34) 09/16/18 11:41
[2018-09-23 00:58] VITALS: RESP 20
[2018-09-23 07:18] LABS: ALB/GLOB RATIO 0.9 (1.0-2.1); ALBUMIN 2.6 g/dL (3.5-5.0); CALCIUM 9.1 mg/dl (8.6-10.4)
[2018-09-23] MEDS: Multiple Vitamins Oral Solution PO SCH (10:09)
--- NOTE | 2018-09-23 12:07 | CP.PCM.PN ---
<Marley Burks - Last Filed: 09/23/18 12:35> Subjective - Date & Time of Evaluation Date of Evaluation: 09/23/18 Time of Evaluation: 11:00 - Subjective Subjective: Cardiology Follow Up Note Patient was seen and examined at bedside. Patient reports he fells well. Denied any dizziness, shortness of breath, syncope, chest pain. Objective - Vital Signs/Intake and Output Vital Signs (last 24 hours): Temp Pulse Resp BP Pulse Ox 97.8 F 96 H 20 111/65 99 09/23/18 07:20 09/23/18 07:50 09/23/18 07:20 09/23/18 10:07 09/23/18 07:20 - Medications Medications: Current Medications Ascorbic Acid (Vitamin C 500 Mg Tab) 500 mg PO BID [facility] Last Admin: 09/23/18 10:07 Dose: 500 mg Furosemide (Lasix) 40 mg PO DAILY [facility] Last Admin: 09/23/18 10:07 Dose: 40 mg Multivitamins/Vitamin C (Multi-Delyn Liquid) 5 ml PO DAILY [facility] Last Admin: 09/23/18 10:09 Dose: 5 ml Pantoprazole Sodium (Protonix Inj) 40 mg IVP Q12H [facility] Last Admin: 09/23/18 05:56 Dose: 40 mg Zinc Sulfate (Zinc Sulfate 220 Mg Cap) 220 mg PO DAILY [facility] Last Admin: 09/23/18 10:07 Dose: 220 mg - Labs Labs: 09/20/18 06:46 09/23/18 06:42 PT 16.6 SECONDS (9.7-12.2) H D 09/19/18 06:24 INR 1.5 D 09/19/18 06:24 APTT 34 SECONDS (21-34) 09/16/18 11:41 - Constitutional Appears: No Acute Distress - Head Exam Head Exam: NORMAL INSPECTION, NORMOCEPHALIC - Eye Exam Eye Exam: EOMI, PERRL Pupil Exam: NORMAL ACCOMODATION - ENT Exam ENT Exam: Mucous Membranes Moist - Respiratory Exam Respiratory Exam: Clear to Ausculation Bilateral, NORMAL BREATHING PATTERN - Cardiovascular Exam Cardiovascular Exam: +S1, +S2 - GI/Abdominal Exam GI & Abdominal Exam: Soft, Normal Bowel Sounds. absent: Distended, Tenderness - Extremities Exam Extremities Exam: Normal Inspection. absent: Pedal Edema, Tenderness - Neurological Exam Neurological Exam: Alert, Awake, Oriented x3 - Psychiatric Exam Psychiatric exam: Normal Affect, Normal Mood - Skin Skin Exam: Dry, Intact, Normal Color, Warm Assessment and Plan - Assessment and Plan (Free Text) Plan: Atrial Fibrillation - Not a candidate for anticoagulation due to active GI bleed - Normal EF by ECHO and Troponins normal - Elevated ProBNP due to renal failure Bradycardia - Dr. Renteria consulted for possible pacemaker Imaging: - ECHO: LVEF 60% Management: - TSH, free T4: ordered, pending results - Pending EP recommendations Case discussed with Marley Espinosa DO, PGY2 <Isaiah Lockhart - Last Filed: 09/23/18 21:54> Objective - Vital Signs/Intake and Output Vital Signs (last 24 hours): Temp Pulse Resp BP Pulse Ox 98.7 F 79 20 131/90 96 09/23/18 15:42 09/23/18 15:42 09/23/18 15:42 09/23/18 15:42 09/23/18 15:42 - Medications Medications: Current Medications Ascorbic Acid (Vitamin C 500 Mg Tab) 500 mg PO BID [facility] Last Admin: 09/23/18 17:50 Dose: Not Given Furosemide (Lasix) 40 mg PO DAILY [facility] Last Admin: 09/23/18 10:07 Dose: 40 mg Multivitamins/Vitamin C (Multi-Delyn Liquid) 5 ml PO DAILY [facility] Last Admin: 09/23/18 10:09 Dose: 5 ml Pantoprazole Sodium (Protonix Inj) 40 mg IVP Q12H [facility] Last Admin: 09/23/18 17:50 Dose: Not Given Zinc Sulfate (Zinc Sulfate 220 Mg Cap) 220 mg PO DAILY [facility] Last Admin: 09/23/18 10:07 Dose: 220 mg - Labs Labs: 09/23/18 14:08 09/23/18 06:42 PT 16.6 SECONDS (9.7-12.2) H D 09/19/18 06:24 INR 1.5 D 09/19/18 06:24 APTT 34 SECONDS (21-34) 09/16/18 11:41 Assessment and Plan - Assessment and Plan (Free Text) Plan: Patient seen and evaluated personally by me Plan of care d/w the resident and as documented
--- NOTE | 2018-09-23 13:08 | CP.PCM.PN ---
Subjective - Date & Time of Evaluation Date of Evaluation: 09/23/18 Time of Evaluation: 13:06 - Subjective Subjective: Comfortable No dyspnea, no CPs, no overt GI bleeding Creat sl increase- 1.9 Await EGD Objective - Vital Signs/Intake and Output Vital Signs (last 24 hours): Temp Pulse Resp BP Pulse Ox 97.8 F 96 H 20 111/65 99 09/23/18 07:20 09/23/18 07:50 09/23/18 07:20 09/23/18 10:07 09/23/18 13:00 - Medications Medications: Current Medications Ascorbic Acid (Vitamin C 500 Mg Tab) 500 mg PO BID [facility] Last Admin: 09/23/18 10:07 Dose: 500 mg Furosemide (Lasix) 40 mg PO DAILY [facility] Last Admin: 09/23/18 10:07 Dose: 40 mg Multivitamins/Vitamin C (Multi-Delyn Liquid) 5 ml PO DAILY [facility] Last Admin: 09/23/18 10:09 Dose: 5 ml Pantoprazole Sodium (Protonix Inj) 40 mg IVP Q12H [facility] Last Admin: 09/23/18 05:56 Dose: 40 mg Zinc Sulfate (Zinc Sulfate 220 Mg Cap) 220 mg PO DAILY [facility] Last Admin: 09/23/18 10:07 Dose: 220 mg - Labs Labs: 09/20/18 06:46 09/23/18 06:42 PT 16.6 SECONDS (9.7-12.2) H D 09/19/18 06:24 INR 1.5 D 09/19/18 06:24 APTT 34 SECONDS (21-34) 09/16/18 11:41 - Constitutional Appears: No Acute Distress, Chronically Ill - Head Exam Head Exam: ATRAUMATIC, NORMAL INSPECTION - Eye Exam Eye Exam: EOMI, Normal appearance - Neck Exam Neck Exam: Normal Inspection. absent: Tenderness - Respiratory Exam Respiratory Exam: Clear to Ausculation Bilateral, NORMAL BREATHING PATTERN - Cardiovascular Exam Cardiovascular Exam: REGULAR RHYTHM, +S1 - GI/Abdominal Exam GI & Abdominal Exam: Soft. absent: Tenderness - Extremities Exam Extremities Exam: Normal Inspection. absent: Tenderness - Neurological Exam Neurological Exam: Awake, CN II-XII Intact - Skin Skin Exam: Dry, Warm Assessment and Plan (1) Atrial fibrillation Status: Acute (2) Acute renal failure Status: Resolved (3) Fluid overload due to blood transfusion Status: Resolved (4) Hypertension Status: Chronic (5) CKD (chronic kidney disease) stage 3, GFR 30-59 ml/min Status: Acute - Assessment and Plan (Free Text) Plan: For EGD soon on oral lasix follow up chemistries
[2018-09-23 14:16] LABS: BASO # 0.1 K/uL (0.0-0.2); BASO % 1.5 % (0.0-2.0); EOS # 0.3 K/uL (0.0-0.7); EOS % 4.4 % (0.0-4.0); HEMOGLOBIN 10.1 g/dL (12.0-18.0); LYMPH # 0.9 K/uL (1.0-4.3); LYMPH % 14.1 % (20.0-40.0); MEAN CELL VOLUME 103.3 fL (80.0-94.0); MEAN CORPUSCULAR HEMOGLOBIN 34.6 pg (27.0-31.0); MEAN CORPUSCULAR HGB CONC 33.5 g/dL (33.0-37.0); MEAN PLATELET VOLUME 10.5 fL (7.2-11.7); MONO # 0.7 K/uL (0.0-0.8); MONO % 12.3 % (0.0-10.0); NEUT # 4.1 K/uL (1.8-7.0); NEUT % 67.7 % (50.0-75.0); RBC 2.92 Mil/uL (4.40-5.90); RED CELL DISTRIBUTION WIDTH 24.3 % (11.5-14.5)
[2018-09-23] MEDS ORDERED: Propofol 10 mg/ml Inj (20 ML) ONE (14:32)
[2018-09-23] MEDS ORDERED: Etomidate 20 mg/10ml Inj IV ONE (14:32)
[2018-09-23] MEDS ORDERED: Lactated Ringer's 500 ML IV ONE (14:38)
--- NOTE | 2018-09-23 14:52 | CP.PCM.PN ---
Subjective - Date & Time of Evaluation Date of Evaluation: 09/23/18 Time of Evaluation: 14:49 - Subjective Subjective: EGD- Gastritis/ulcer, duodenitis. No bleeding Rec: PPI, advance diet, await pathology-treat H Pylori if present. Pt currently too debilitated and highly unlikely to successfully complete an adequate bowel prep for colonoscopy. Perhaps colonoscopy can be considered after a period of Rehabilitation See operative report fro details of EGD Objective - Vital Signs/Intake and Output Vital Signs (last 24 hours): Temp Pulse Resp BP Pulse Ox 97.8 F 91 H 20 118/86 100 09/23/18 13:39 09/23/18 13:39 09/23/18 13:39 09/23/18 13:39 09/23/18 13:39 - Medications Medications: Current Medications Ascorbic Acid (Vitamin C 500 Mg Tab) 500 mg PO BID [facility] Last Admin: 09/23/18 10:07 Dose: 500 mg Furosemide (Lasix) 40 mg PO DAILY [facility] Last Admin: 09/23/18 10:07 Dose: 40 mg Multivitamins/Vitamin C (Multi-Delyn Liquid) 5 ml PO DAILY [facility] Last Admin: 09/23/18 10:09 Dose: 5 ml Pantoprazole Sodium (Protonix Inj) 40 mg IVP Q12H [facility] Last Admin: 09/23/18 05:56 Dose: 40 mg Zinc Sulfate (Zinc Sulfate 220 Mg Cap) 220 mg PO DAILY [facility] Last Admin: 09/23/18 10:07 Dose: 220 mg - Labs Labs: 09/23/18 14:08 09/23/18 06:42 PT 16.6 SECONDS (9.7-12.2) H D 09/19/18 06:24 INR 1.5 D 09/19/18 06:24 APTT 34 SECONDS (21-34) 09/16/18 11:41 Assessment and Plan (1) Occult blood in stools Status: Acute (2) Atrial fibrillation Status: Acute (3) Chronic anemia Status: Acute
--- NOTE | 2018-09-23 19:15 | CP.PCM.PN ---
Subjective - Date & Time of Evaluation Date of Evaluation: 09/23/18 Time of Evaluation: 19:14 - Subjective Subjective: Patient is morning doing well. He was alert and awake. Scheduled to have the upper endoscopy today. Duodenitis noted. No bleeding noted. Vital signs stable. Chest good air entry regular heart sound nontender abdomen. Meanwhile will continue the current treatment. For possible physical therapy subacute rehabilitation evaluation and pending Patient with atrial fibrillation, anticoagulation, coagulopathy, GI bleed, sepsis Objective - Vital Signs/Intake and Output Vital Signs (last 24 hours): Temp Pulse Resp BP Pulse Ox 98.7 F 79 20 131/90 96 09/23/18 15:42 09/23/18 15:42 09/23/18 15:42 09/23/18 15:42 09/23/18 15:42 - Medications Medications: Current Medications Ascorbic Acid (Vitamin C 500 Mg Tab) 500 mg PO BID [facility] Last Admin: 09/23/18 17:50 Dose: Not Given Furosemide (Lasix) 40 mg PO DAILY [facility] Last Admin: 09/23/18 10:07 Dose: 40 mg Multivitamins/Vitamin C (Multi-Delyn Liquid) 5 ml PO DAILY [facility] Last Admin: 09/23/18 10:09 Dose: 5 ml Pantoprazole Sodium (Protonix Inj) 40 mg IVP Q12H [facility] Last Admin: 09/23/18 17:50 Dose: Not Given Zinc Sulfate (Zinc Sulfate 220 Mg Cap) 220 mg PO DAILY [facility] Last Admin: 09/23/18 10:07 Dose: 220 mg - Labs Labs: 09/23/18 14:08 09/23/18 06:42 PT 16.6 SECONDS (9.7-12.2) H D 09/19/18 06:24 INR 1.5 D 09/19/18 06:24 APTT 34 SECONDS (21-34) 09/16/18 11:41
[2018-09-24 08:28] LABS: BASO # 0.1 K/uL (0.0-0.2); BASO % 2.1 % (0.0-2.0); EOS # 0.3 K/uL (0.0-0.7); EOS % 4.3 % (0.0-4.0); HEMOGLOBIN 10.3 g/dL (12.0-18.0); LYMPH # 1.1 K/uL (1.0-4.3); LYMPH % 17.1 % (20.0-40.0); MEAN CELL VOLUME 102.5 fL (80.0-94.0); MEAN CORPUSCULAR HEMOGLOBIN 34.6 pg (27.0-31.0); MEAN CORPUSCULAR HGB CONC 33.8 g/dL (33.0-37.0); MEAN PLATELET VOLUME 10.3 fL (7.2-11.7); MONO # 0.8 K/uL (0.0-0.8); MONO % 12.3 % (0.0-10.0); NEUT % 64.2 % (50.0-75.0); RBC 2.97 Mil/uL (4.40-5.90); WHITE BLOOD COUNT 6.3 K/uL (4.8-10.8)
[2018-09-24 08:57] LABS: ALB/GLOB RATIO 0.8 (1.0-2.1); ALBUMIN 2.5 g/dL (3.5-5.0); CALCIUM 8.9 mg/dl (8.6-10.4)
--- NOTE | 2018-09-24 10:52 | CP.PCM.PN ---
Subjective - Date & Time of Evaluation Date of Evaluation: 09/24/18 Time of Evaluation: 10:51 - Subjective Subjective: seen and examined c/o back pain Objective - Vital Signs/Intake and Output Vital Signs (last 24 hours): Temp Pulse Resp BP Pulse Ox 97.8 F 74 20 110/68 97 09/24/18 07:00 09/24/18 08:06 09/24/18 07:00 09/24/18 07:00 09/24/18 07:00 - Medications Medications: Current Medications Ascorbic Acid (Vitamin C 500 Mg Tab) 500 mg PO BID [facility] Last Admin: 09/23/18 17:50 Dose: Not Given Furosemide (Lasix) 40 mg PO DAILY [facility] Last Admin: 09/23/18 10:07 Dose: 40 mg Multivitamins/Vitamin C (Multi-Delyn Liquid) 5 ml PO DAILY [facility] Last Admin: 09/23/18 10:09 Dose: 5 ml Pantoprazole Sodium (Protonix Inj) 40 mg IVP Q12H [facility] Last Admin: 09/24/18 04:57 Dose: 40 mg Zinc Sulfate (Zinc Sulfate 220 Mg Cap) 220 mg PO DAILY [facility] Last Admin: 09/23/18 10:07 Dose: 220 mg - Labs Labs: 09/24/18 08:21 09/24/18 08:21 PT 16.6 SECONDS (9.7-12.2) H D 09/19/18 06:24 INR 1.5 D 09/19/18 06:24 APTT 34 SECONDS (21-34) 09/16/18 11:41 - Constitutional Appears: No Acute Distress, Chronically Ill - Head Exam Head Exam: NORMAL INSPECTION, NORMOCEPHALIC - Eye Exam Eye Exam: Normal appearance, PERRL - ENT Exam ENT Exam: Mucous Membranes Moist, Normal Exam - Neck Exam Neck Exam: Full ROM, Normal Inspection - Respiratory Exam Respiratory Exam: Decreased Breath Sounds, NORMAL BREATHING PATTERN - Cardiovascular Exam Cardiovascular Exam: Irregular Rhythm - GI/Abdominal Exam GI & Abdominal Exam: Distended, Soft - Extremities Exam Extremities Exam: Normal Inspection, Pedal Edema - Neurological Exam Neurological Exam: Alert, Awake - Psychiatric Exam Psychiatric exam: Normal Affect, Normal Mood - Skin Skin Exam: Dry, Intact Assessment and Plan (1) Atrial fibrillation Status: Acute (2) CKD (chronic kidney disease) stage 3, GFR 30-59 ml/min Status: Acute (3) Severe anemia Status: Acute (4) Acute renal failure Status: Resolved - Assessment and Plan (Free Text) Assessment: resolved radha renal function stable, ckd 3 maintain lasix for pulmonary congestion
[2018-09-24] MEDS: Multiple Vitamins Oral Solution PO SCH (10:57)
--- NOTE | 2018-09-24 14:46 | CP.PCM.PN ---
Subjective - Date & Time of Evaluation Date of Evaluation: 09/23/18 Time of Evaluation: 15:00 - Subjective Subjective: INFECTIOUS DISEASE PROGRESS NOTES YULY FONSECA MD, FACP 09/23/2018 6T 653-B CHART REVIEWD PT EXAMINED CASE DISCUSSED WITH DR HE EGD- Gastritis/ulcer, duodenitis. No bleeding Rec: PPI, advance diet, await pathology-treat H Pylori if present. Pt currently too debilitated and highly unlikely to successfully complete an adequate bowel prep for colonoscopy. Perhaps colonoscopy can be considered after a period of R ehabilitation See operative report fro details of EGD Objective - Vital Signs/Intake and Output Vital Signs (last 24 hours): Temp Pulse Resp BP Pulse Ox 97.8 F 91 H 20 118/86 100 09/23/18 13:39 09/23/18 13:39 09/23/18 13:39 09/23/18 13:39 09/23/18 13:39 - Medications Medications: Current Medications Ascorbic Acid (Vitamin C 500 Mg Tab) 500 mg PO BID [facility] Last Admin: 09/23/18 10:07 Dose: 500 mg Furosemide (Lasix) 40 mg PO DAILY [facility] Last Admin: 09/23/18 10:07 Dose: 40 mg Multivitamins/Vitamin C (Multi-Delyn Liquid) 5 ml PO DAILY [facility] Last Admin: 09/23/18 10:09 Dose: 5 ml Pantoprazole Sodium (Protonix Inj) 40 mg IVP Q12H [facility] Last Admin: 09/23/18 05:56 Dose: 40 mg Zinc Sulfate (Zinc Sulfate 220 Mg Cap) 220 mg PO DAILY [facility] Last Admin: 09/23/18 10:07 Dose: 220 mg - Labs Labs: 09/23/18 14:08 09/23/18 06:42 PT 16.6 SECONDS (9.7-12.2) H D 09/19/18 06:24 INR 1.5 D 09/19/18 06:24 APTT 34 SECONDS (21-34) 09/16/18 11:41 Assessment and Plan (1) Occult blood in stools Status: Acute (2) Atrial fibrillation Status: Acute (3) Chronic anemia Status: Acute Objective - Vital Signs/Intake and Output Vital Signs (last 24 hours): Temp Pulse Resp BP Pulse Ox 97.8 F 74 20 124/72 97 09/24/18 07:00 09/24/18 08:06 09/24/18 07:00 09/24/18 10:57 09/24/18 07:00 - Medications Medications: Current Medications Ascorbic Acid (Vitamin C 500 Mg Tab) 500 mg PO BID [facility] Last Admin: 09/24/18 10:57 Dose: 500 mg Furosemide (Lasix) 40 mg PO DAILY [facility] Last Admin: 09/24/18 10:57 Dose: 40 mg Multivitamins/Vitamin C (Multi-Delyn Liquid) 5 ml PO DAILY [facility] Last Admin: 09/24/18 10:57 Dose: 5 ml Pantoprazole Sodium (Protonix Inj) 40 mg IVP Q12H [facility] Last Admin: 09/24/18 04:57 Dose: 40 mg Zinc Sulfate (Zinc Sulfate 220 Mg Cap) 220 mg PO DAILY [facility] Last Admin: 09/24/18 10:57 Dose: 220 mg - Labs Labs: 09/24/18 08:21 09/24/18 08:21 PT 16.6 SECONDS (9.7-12.2) H D 09/19/18 06:24 INR 1.5 D 09/19/18 06:24 APTT 34 SECONDS (21-34) 09/16/18 11:41
--- NOTE | 2018-09-24 16:04 | CP.PCM.PN ---
Subjective - Date & Time of Evaluation Date of Evaluation: 09/24/18 Time of Evaluation: 16:02 - Subjective Subjective: f/u anemia Denies abdom pain, CP, SOB, fever, IBRAHIM, cough, hematuria, hemoptysis, RB., melena Objective - Vital Signs/Intake and Output Vital Signs (last 24 hours): Temp Pulse Resp BP Pulse Ox 97.8 F 74 20 124/72 97 09/24/18 07:00 09/24/18 08:06 09/24/18 07:00 09/24/18 10:57 09/24/18 07:00 - Medications Medications: Current Medications Ascorbic Acid (Vitamin C 500 Mg Tab) 500 mg PO BID [facility] Last Admin: 09/24/18 10:57 Dose: 500 mg Furosemide (Lasix) 40 mg PO DAILY [facility] Last Admin: 09/24/18 10:57 Dose: 40 mg Multivitamins/Vitamin C (Multi-Delyn Liquid) 5 ml PO DAILY [facility] Last Admin: 09/24/18 10:57 Dose: 5 ml Pantoprazole Sodium (Protonix Inj) 40 mg IVP Q12H [facility] Last Admin: 09/24/18 04:57 Dose: 40 mg Zinc Sulfate (Zinc Sulfate 220 Mg Cap) 220 mg PO DAILY [facility] Last Admin: 09/24/18 10:57 Dose: 220 mg - Labs Labs: 09/24/18 08:21 09/24/18 08:21 PT 16.6 SECONDS (9.7-12.2) H D 09/19/18 06:24 INR 1.5 D 09/19/18 06:24 APTT 34 SECONDS (21-34) 09/16/18 11:41 - Constitutional Appears: Non-toxic - Respiratory Exam Respiratory Exam: Clear to Ausculation Bilateral - Cardiovascular Exam Cardiovascular Exam: RRR - GI/Abdominal Exam GI & Abdominal Exam: Soft, Normal Bowel Sounds. absent: Tenderness - Neurological Exam Neurological Exam: Alert Assessment and Plan (1) Occult blood in stools Assessment & Plan: Consider due to hoang ulcer seen at EGD. NO signs of bleeding. Rec- PPI, check Hb. Status: Acute (2) Atrial fibrillation Status: Acute (3) COPD (chronic obstructive pulmonary disease) Status: Acute (4) Chronic anemia Status: Acute
--- NOTE | 2018-09-24 16:51 | CP.PCM.PN ---
Subjective - Date & Time of Evaluation Date of Evaluation: 09/18/18 - Subjective Subjective: INFECTIOUS DISEASE PROGRESS NOTES YULY FONSECA MD, FACP 6T 653-B 09/18/2018 CHART REVIEWED PT EXAMINED CASE DISCUSSED 68-year-old male brought in by ambulance because he was falling more frequently over the 3 days duration. Patient had a multiple falls front side as well as in the back. He had a multiple ecchymosis in the skin over the legs, upper extremity as well as in the face. He has some bleeding right nostril, and the gums noted. Patient is living by himself. Usually patient walking with a cane, but recently his condition got worse. He is not able to eat anything by mouth. He is also not able to drink much for 2 days prior to admission Patient had a similar incident in the past at the time he had injury to the right leg which was treated conservatively and he had a scar tissues from that on the right leg. Patient is to be a heavy smoker in the past quit at least 4 years ago. H/O CKD stage 3 noted Poor historian AT BEST, WATCH FOR CONFABULATION AND PSYCHIOSIS Patient was taking oral anticoagulation. Past medical history: Peripheral vascular disease, atrial fibrillation, hypertension, chronic renal failure. Allergy penicillin, but able to tolerate cephalosporin as per ID. Surgical history: Patient has a surgical intervention to the right open wound in the right leg.History of fractures. Tonsillectomy in the past. Social history: Patient used to be a smoker in the past. More than 30 pack per year history. Patient currently lives by himself. Hosp course: Received 3 units prbcs blood transfusions recently Off anticoagulation More dyspneic now Was on ARB agent at home OBSERVE ON PRESENT MANAGEMENT NO SIGNS OF OVER LOCAL INFECTION. Objective - Vital Signs/Intake and Output Vital Signs (last 24 hours): Temp Pulse Resp BP Pulse Ox 98.6 F 65 20 106/69 95 09/24/18 15:00 09/24/18 15:00 09/24/18 15:00 09/24/18 15:00 09/24/18 15:00 - Medications Medications: Current Medications Ascorbic Acid (Vitamin C 500 Mg Tab) 500 mg PO BID [facility] Last Admin: 09/24/18 10:57 Dose: 500 mg Furosemide (Lasix) 40 mg PO DAILY [facility] Last Admin: 09/24/18 10:57 Dose: 40 mg Multivitamins/Vitamin C (Multi-Delyn Liquid) 5 ml PO DAILY [facility] Last Admin: 09/24/18 10:57 Dose: 5 ml Pantoprazole Sodium (Protonix Inj) 40 mg IVP Q12H [facility] Last Admin: 09/24/18 04:57 Dose: 40 mg Zinc Sulfate (Zinc Sulfate 220 Mg Cap) 220 mg PO DAILY [facility] Last Admin: 09/24/18 10:57 Dose: 220 mg - Labs Labs: 09/24/18 08:21 09/24/18 08:21 PT 16.6 SECONDS (9.7-12.2) H D 09/19/18 06:24 INR 1.5 D 09/19/18 06:24 APTT 34 SECONDS (21-34) 09/16/18 11:41
--- NOTE | 2018-09-24 16:56 | CP.PCM.PN ---
Subjective - Date & Time of Evaluation Date of Evaluation: 09/19/18 Time of Evaluation: 10:20 - Subjective Subjective: INFECTIOUS DISEASE PROGRESS NOTES YULY FONSECA MD, FACP 6T 653-B 09/19/2018 CHART REVIEWED PT EXAMINED CASE DISCUSSED More alert Fair UO, less dyspnea post IV lasix Hg better post transfusions Creat stabilizing- possibly baseline now K controlled KAYDEN possibly contributed by ARB prior use, GI bleed Fluid overload improved Objective - Vital Signs/Intake and Output Vital Signs (last 24 hours): Temp Pulse Resp BP Pulse Ox 97.6 F 69 20 151/68 H 96 09/19/18 07:00 09/19/18 07:00 09/19/18 07:00 09/19/18 07:00 09/19/18 07:00 - Medications Medications: Current Medications Ascorbic Acid (Vitamin C 500 Mg Tab) 500 mg PO BID [facility] Last Admin: 09/19/18 09:18 Dose: 500 mg Cefepime HCl (Maxipime Iv 1 Gm Premix) 1 gm in 50 mls @ 100 mls/hr IVPB Q24H [facility]; Protocol Last Admin: 09/18/18 21:26 Dose: 100 mls/hr Multivitamins/Vitamin C (Multi-Delyn Liquid) 5 ml PO DAILY [facility] Last Admin: 09/19/18 09:21 Dose: 5 ml Pantoprazole Sodium (Protonix Inj) 40 mg IVP Q12H [facility] Last Admin: 09/19/18 03:51 Dose: 40 mg Zinc Sulfate (Zinc Sulfate 220 Mg Cap) 220 mg PO DAILY [facility] Last Admin: 09/19/18 09:18 Dose: 220 mg - Labs Labs: 09/19/18 06:24 09/19/18 06:24 PT 16.6 SECONDS (9.7-12.2) H D 09/19/18 06:24 INR 1.5 D 09/19/18 06:24 APTT 34 SECONDS (21-34) 09/16/18 11:41 - Constitutional Appears: No Acute Distress, Chronically Ill - Head Exam Head Exam: ATRAUMATIC, NORMAL INSPECTION - Eye Exam Eye Exam: EOMI, Normal appearance - Neck Exam Neck Exam: Normal Inspection. absent: Tenderness - Respiratory Exam Respiratory Exam: Rhonchi, NORMAL BREATHING PATTERN - Cardiovascular Exam Cardiovascular Exam: Irregular Rhythm, +S1 - GI/Abdominal Exam GI & Abdominal Exam: Soft. absent: Tenderness - Extremities Exam Extremities Exam: Pedal Edema. absent: Tenderness - Neurological Exam Neurological Exam: Awake, CN II-XII Intact - Skin Skin Exam: Dry, Warm Assessment and Plan (1) Atrial fibrillation Status: Acute (2) Acute renal failure Status: Acute (3) Fluid overload due to blood transfusion Status: Acute (4) Hypertension Status: Chronic (5) CKD (chronic kidney disease) stage 3, GFR 30-59 ml/min Status: Acute - Assessment and Plan (Free Text) Plan: Monitor renal function, lytes Hold diuretics now Objective - Vital Signs/Intake and Output Vital Signs (last 24 hours): Temp Pulse Resp BP Pulse Ox 98.6 F 65 20 106/69 95 09/24/18 15:00 09/24/18 15:00 09/24/18 15:00 09/24/18 15:00 09/24/18 15:00 - Medications Medications: Current Medications Ascorbic Acid (Vitamin C 500 Mg Tab) 500 mg PO BID [facility] Last Admin: 09/24/18 10:57 Dose: 500 mg Furosemide (Lasix) 40 mg PO DAILY [facility] Last Admin: 09/24/18 10:57 Dose: 40 mg Multivitamins/Vitamin C (Multi-Delyn Liquid) 5 ml PO DAILY [facility] Last Admin: 09/24/18 10:57 Dose: 5 ml Pantoprazole Sodium (Protonix Inj) 40 mg IVP Q12H [facility] Last Admin: 09/24/18 04:57 Dose: 40 mg Zinc Sulfate (Zinc Sulfate 220 Mg Cap) 220 mg PO DAILY [facility] Last Admin: 09/24/18 10:57 Dose: 220 mg - Labs Labs: 09/24/18 08:21 09/24/18 08:21 PT 16.6 SECONDS (9.7-12.2) H D 09/19/18 06:24 INR 1.5 D 09/19/18 06:24 APTT 34 SECONDS (21-34) 09/16/18 11:41
--- NOTE | 2018-09-24 17:00 | CP.PCM.PN ---
Subjective - Date & Time of Evaluation Date of Evaluation: 09/21/18 Time of Evaluation: 11:30 - Subjective Subjective: INFECTIOUS DISEASE PROGRESS NOTES YULY FONSECA MD, FACP 6T 653-B 09/21/2018 CHART REVIEWED PT EXAMINED CASE DISCUSSED Appears same Has been rick at times No overt GI bleed noticed Creat sl higher at 1.7 Await possible EGD Objective - Vital Signs/Intake and Output Vital Signs (last 24 hours): Temp Pulse Resp BP Pulse Ox 98 F 75 20 123/68 100 09/21/18 07:00 09/21/18 07:00 09/21/18 07:00 09/21/18 07:00 09/21/18 07:00 - Medications Medications: Current Medications Ascorbic Acid (Vitamin C 500 Mg Tab) 500 mg PO BID [facility] Last Admin: 09/20/18 17:39 Dose: 500 mg Furosemide (Lasix) 20 mg PO DAILY [facility] Last Admin: 09/20/18 17:00 Dose: 20 mg Cefepime HCl (Maxipime Iv 1 Gm Premix) 1 gm in 50 mls @ 100 mls/hr IVPB Q24H [facility]; Protocol Last Admin: 09/20/18 20:34 Dose: 100 mls/hr Multivitamins/Vitamin C (Multi-Delyn Liquid) 5 ml PO DAILY [facility] Last Admin: 09/20/18 10:33 Dose: 5 ml Pantoprazole Sodium (Protonix Inj) 40 mg IVP Q12H [facility] Last Admin: 09/21/18 04:43 Dose: 40 mg Zinc Sulfate (Zinc Sulfate 220 Mg Cap) 220 mg PO DAILY [facility] Last Admin: 09/20/18 10:41 Dose: 220 mg - Labs Labs: 09/20/18 06:46 09/21/18 06:35 PT 16.6 SECONDS (9.7-12.2) H D 09/19/18 06:24 INR 1.5 D 09/19/18 06:24 APTT 34 SECONDS (21-34) 09/16/18 11:41 - Constitutional Appears: No Acute Distress, Chronically Ill - Head Exam Head Exam: ATRAUMATIC, NORMAL INSPECTION - Eye Exam Eye Exam: EOMI, Normal appearance - Neck Exam Neck Exam: Normal Inspection. absent: Tenderness - Respiratory Exam Respiratory Exam: Clear to Ausculation Bilateral, NORMAL BREATHING PATTERN - Cardiovascular Exam Cardiovascular Exam: REGULAR RHYTHM, +S1 - GI/Abdominal Exam GI & Abdominal Exam: Soft. absent: Tenderness - Extremities Exam Extremities Exam: Normal Inspection. absent: Tenderness - Neurological Exam Neurological Exam: Awake, CN II-XII Intact - Skin Skin Exam: Dry, Warm Assessment and Plan (1) Atrial fibrillation Status: Acute (2) Acute renal failure Status: Resolved (3) Fluid overload due to blood transfusion Status: Resolved (4) Hypertension Status: Chronic (5) CKD (chronic kidney disease) stage 3, GFR 30-59 ml/min Status: Acute - Assessment and Plan (Free Text) Plan: Repeat chemistries Possible EGD Objective - Vital Signs/Intake and Output Vital Signs (last 24 hours): Temp Pulse Resp BP Pulse Ox 98.6 F 65 20 106/69 95 09/24/18 15:00 09/24/18 15:00 09/24/18 15:00 09/24/18 15:00 09/24/18 15:00 - Medications Medications: Current Medications Ascorbic Acid (Vitamin C 500 Mg Tab) 500 mg PO BID [facility] Last Admin: 09/24/18 10:57 Dose: 500 mg Furosemide (Lasix) 40 mg PO DAILY [facility] Last Admin: 09/24/18 10:57 Dose: 40 mg Multivitamins/Vitamin C (Multi-Delyn Liquid) 5 ml PO DAILY [facility] Last Admin: 09/24/18 10:57 Dose: 5 ml Pantoprazole Sodium (Protonix Inj) 40 mg IVP Q12H [facility] Last Admin: 09/24/18 04:57 Dose: 40 mg Zinc Sulfate (Zinc Sulfate 220 Mg Cap) 220 mg PO DAILY [facility] Last Admin: 09/24/18 10:57 Dose: 220 mg - Labs Labs: 09/24/18 08:21 09/24/18 08:21 PT 16.6 SECONDS (9.7-12.2) H D 09/19/18 06:24 INR 1.5 D 09/19/18 06:24 APTT 34 SECONDS (21-34) 09/16/18 11:41
--- NOTE | 2018-09-24 17:05 | CP.PCM.PN ---
Subjective - Date & Time of Evaluation Date of Evaluation: 09/24/18 Time of Evaluation: 17:03 - Subjective Subjective: INFECTIOUS DISEASE PROGRESS NOTES YULY FONSECA MD, FACP 09/24/2018 6T 653-B CHART REVIEWED PT EXAMINED CASE DISCUSSED seen and examined c/o back pain Objective - Vital Signs/Intake and Output Vital Signs (last 24 hours): Temp Pulse Resp BP Pulse Ox 97.8 F 74 20 110/68 97 09/24/18 07:00 09/24/18 08:06 09/24/18 07:00 09/24/18 07:00 09/24/18 07:00 - Medications Medications: Current Medications Ascorbic Acid (Vitamin C 500 Mg Tab) 500 mg PO BID [facility] Last Admin: 09/23/18 17:50 Dose: Not Given Furosemide (Lasix) 40 mg PO DAILY [facility] Last Admin: 09/23/18 10:07 Dose: 40 mg Multivitamins/Vitamin C (Multi-Delyn Liquid) 5 ml PO DAILY [facility] Last Admin: 09/23/18 10:09 Dose: 5 ml Pantoprazole Sodium (Protonix Inj) 40 mg IVP Q12H [facility] Last Admin: 09/24/18 04:57 Dose: 40 mg Zinc Sulfate (Zinc Sulfate 220 Mg Cap) 220 mg PO DAILY [facility] Last Admin: 09/23/18 10:07 Dose: 220 mg - Labs Labs: 09/24/18 08:21 09/24/18 08:21 PT 16.6 SECONDS (9.7-12.2) H D 09/19/18 06:24 INR 1.5 D 09/19/18 06:24 APTT 34 SECONDS (21-34) 09/16/18 11:41 - Constitutional Appears: No Acute Distress, Chronically Ill - Head Exam Head Exam: NORMAL INSPECTION, NORMOCEPHALIC - Eye Exam Eye Exam: Normal appearance, PERRL - ENT Exam ENT Exam: Mucous Membranes Moist, Normal Exam - Neck Exam Neck Exam: Full ROM, Normal Inspection - Respiratory Exam Respiratory Exam: Decreased Breath Sounds, NORMAL BREATHING PATTERN - Cardiovascular Exam Cardiovascular Exam: Irregular Rhythm - GI/Abdominal Exam GI & Abdominal Exam: Distended, Soft - Extremities Exam Extremities Exam: Normal Inspection, Pedal Edema - Neurological Exam Neurological Exam: Alert, Awake - Psychiatric Exam Psychiatric exam: Normal Affect, Normal Mood - Skin Skin Exam: Dry, Intact Assessment and Plan (1) Atrial fibrillation Status: Acute (2) CKD (chronic kidney disease) stage 3, GFR 30-59 ml/min Status: Acute (3) Severe anemia Status: Acute (4) Acute renal failure Status: Resolved - Assessment and Plan (Free Text) Assessment: resolved radha renal function stable, ckd 3 maintain lasix for pulmonary congestion Objective - Vital Signs/Intake and Output Vital Signs (last 24 hours): Temp Pulse Resp BP Pulse Ox 98.6 F 65 20 106/69 95 09/24/18 15:00 09/24/18 15:00 09/24/18 15:00 09/24/18 15:00 09/24/18 15:00 - Medications Medications: Current Medications Ascorbic Acid (Vitamin C 500 Mg Tab) 500 mg PO BID [facility] Last Admin: 09/24/18 10:57 Dose: 500 mg Furosemide (Lasix) 40 mg PO DAILY [facility] Last Admin: 09/24/18 10:57 Dose: 40 mg Multivitamins/Vitamin C (Multi-Delyn Liquid) 5 ml PO DAILY [facility] Last Admin: 09/24/18 10:57 Dose: 5 ml Pantoprazole Sodium (Protonix Inj) 40 mg IVP Q12H [facility] Last Admin: 09/24/18 04:57 Dose: 40 mg Thiamine HCl (Vitamin B1 Tab) 100 mg PO DAILY [facility] Zinc Sulfate (Zinc Sulfate 220 Mg Cap) 220 mg PO DAILY [facility] Last Admin: 09/24/18 10:57 Dose: 220 mg - Labs Labs: 09/24/18 08:21 09/24/18 08:21 PT 16.6 SECONDS (9.7-12.2) H D 09/19/18 06:24 INR 1.5 D 09/19/18 06:24 APTT 34 SECONDS (21-34) 09/16/18 11:41
--- NOTE | 2018-09-24 18:55 | CP.PCM.PN ---
Subjective - Date & Time of Evaluation Date of Evaluation: 09/24/18 Time of Evaluation: 18:54 - Subjective Subjective: pt is doing well no chest pain awaiitng for rehab placement had EGD gastritis no active bleeding of antiplatlets will f/u Objective - Vital Signs/Intake and Output Vital Signs (last 24 hours): Temp Pulse Resp BP Pulse Ox 98.6 F 65 20 106/69 95 09/24/18 15:00 09/24/18 15:00 09/24/18 15:00 09/24/18 15:00 09/24/18 15:00 - Medications Medications: Current Medications Ascorbic Acid (Vitamin C 500 Mg Tab) 500 mg PO BID [facility] Last Admin: 09/24/18 17:14 Dose: 500 mg Furosemide (Lasix) 40 mg PO DAILY [facility] Last Admin: 09/24/18 10:57 Dose: 40 mg Multivitamins/Vitamin C (Multi-Delyn Liquid) 5 ml PO DAILY [facility] Last Admin: 09/24/18 10:57 Dose: 5 ml Pantoprazole Sodium (Protonix Inj) 40 mg IVP Q12H [facility] Last Admin: 09/24/18 17:15 Dose: 40 mg Thiamine HCl (Vitamin B1 Tab) 100 mg PO DAILY [facility] Last Admin: 09/24/18 17:14 Dose: 100 mg Zinc Sulfate (Zinc Sulfate 220 Mg Cap) 220 mg PO DAILY [facility] Last Admin: 09/24/18 10:57 Dose: 220 mg - Labs Labs: 09/24/18 08:21 09/24/18 08:21 PT 16.6 SECONDS (9.7-12.2) H D 09/19/18 06:24 INR 1.5 D 09/19/18 06:24 APTT 34 SECONDS (21-34) 09/16/18 11:41
--- NOTE | 2018-09-24 19:17 | CARD ---
APPROVED REPORT Date of service: 09/19/2018 EKG Measurement Heart [id number] <Conclusion> Atrial fibrillation Left axis deviation Right bundle branch block Inferior infarct, age undetermined Anterolateral infarct, age undetermined Abnormal ECG
--- NOTE | 2018-09-24 20:43 | CP.PCM.PN ---
Subjective - Date & Time of Evaluation Date of Evaluation: 09/24/18 Time of Evaluation: 08:15 - Subjective Subjective: Patient was seen and examined Denies chest pain and dyspnea Physical Examination - Constitutional Appears: No Acute Distress - Head Exam Head Exam: NORMAL INSPECTION, NORMOCEPHALIC - Eye Exam Eye Exam: EOMI, PERRL Pupil Exam: NORMAL ACCOMODATION - ENT Exam ENT Exam: Mucous Membranes Moist - Respiratory Exam Respiratory Exam: Clear to Ausculation Bilateral, NORMAL BREATHING PATTERN - Cardiovascular Exam Cardiovascular Exam: +S1, +S2 - GI/Abdominal Exam GI & Abdominal Exam: Soft, Normal Bowel Sounds. absent: Distended, Tenderness - Extremities Exam Extremities Exam: Normal Inspection. absent: Pedal Edema, Tenderness - Neurological Exam Neurological Exam: Alert, Awake, Oriented x3 - Psychiatric Exam Psychiatric exam: Normal Affect, Normal Mood - Skin Skin Exam: Dry, Intact, Normal Color, Warm Assessment and Plan - Assessment and Plan (Free Text) Plan: Atrial Fibrillation - Not a candidate for anticoagulation due to active GI bleed - Normal EF by ECHO and Troponins normal - Elevated ProBNP due to renal failure Bradycardia - Dr. Renteria consulted for possible pacemaker Imaging: - ECHO: LVEF 60% Elevated TSH Hypothyroidism Mgt as per PMD Objective - Vital Signs/Intake and Output Vital Signs (last 24 hours): Temp Pulse Resp BP Pulse Ox 98.6 F 65 20 106/69 95 09/24/18 15:00 09/24/18 15:00 09/24/18 15:00 09/24/18 15:00 09/24/18 15:00 - Medications Medications: Current Medications Ascorbic Acid (Vitamin C 500 Mg Tab) 500 mg PO BID [facility] Last Admin: 09/24/18 17:14 Dose: 500 mg Furosemide (Lasix) 40 mg PO DAILY [facility] Last Admin: 09/24/18 10:57 Dose: 40 mg Multivitamins/Vitamin C (Multi-Delyn Liquid) 5 ml PO DAILY [facility] Last Admin: 09/24/18 10:57 Dose: 5 ml Pantoprazole Sodium (Protonix Inj) 40 mg IVP Q12H [facility] Last Admin: 09/24/18 17:15 Dose: 40 mg Thiamine HCl (Vitamin B1 Tab) 100 mg PO DAILY [facility] Last Admin: 09/24/18 17:14 Dose: 100 mg Zinc Sulfate (Zinc Sulfate 220 Mg Cap) 220 mg PO DAILY [facility] Last Admin: 09/24/18 10:57 Dose: 220 mg - Labs Labs: 09/24/18 08:21 09/24/18 08:21 PT 16.6 SECONDS (9.7-12.2) H D 09/19/18 06:24 INR 1.5 D 09/19/18 06:24 APTT 34 SECONDS (21-34) 09/16/18 11:41
[2018-09-25 02:21] VITALS: O2SAT 96
--- NOTE | 2018-09-25 09:04 | CP.PCM.PN ---
<Marley Burks - Last Filed: 09/25/18 09:00> Subjective - Date & Time of Evaluation Date of Evaluation: 09/25/18 Time of Evaluation: 08:00 - Subjective Subjective: Cardiology Follow Up Note Patient was seen and examined at bedside. Patient reports he fells well. Denied any dizziness, shortness of breath, syncope, chest pain. Objective - Vital Signs/Intake and Output Vital Signs (last 24 hours): Temp Pulse Resp BP Pulse Ox 97.3 F L 61 20 113/72 96 09/25/18 07:00 09/25/18 07:00 09/25/18 07:00 09/25/18 07:00 09/25/18 07:00 - Medications Medications: Current Medications Ascorbic Acid (Vitamin C 500 Mg Tab) 500 mg PO BID [facility] Last Admin: 09/24/18 17:14 Dose: 500 mg Furosemide (Lasix) 40 mg PO DAILY [facility] Last Admin: 09/24/18 10:57 Dose: 40 mg Multivitamins/Vitamin C (Multi-Delyn Liquid) 5 ml PO DAILY [facility] Last Admin: 09/24/18 10:57 Dose: 5 ml Pantoprazole Sodium (Protonix Inj) 40 mg IVP Q12H [facility] Last Admin: 09/25/18 04:00 Dose: 40 mg Thiamine HCl (Vitamin B1 Tab) 100 mg PO DAILY [facility] Last Admin: 09/24/18 17:14 Dose: 100 mg Zinc Sulfate (Zinc Sulfate 220 Mg Cap) 220 mg PO DAILY [facility] Last Admin: 09/24/18 10:57 Dose: 220 mg - Labs Labs: 09/24/18 08:21 09/24/18 08:21 PT 16.6 SECONDS (9.7-12.2) H D 09/19/18 06:24 INR 1.5 D 09/19/18 06:24 APTT 34 SECONDS (21-34) 09/16/18 11:41 - Additional Findings Additional findings: - Constitutional Appears: No Acute Distress - Head Exam Head Exam: NORMAL INSPECTION, NORMOCEPHALIC - Eye Exam Eye Exam: EOMI, PERRL Pupil Exam: NORMAL ACCOMODATION - ENT Exam ENT Exam: Mucous Membranes Moist - Respiratory Exam Respiratory Exam: Clear to Ausculation Bilateral, NORMAL BREATHING PATTERN - Cardiovascular Exam Cardiovascular Exam: +S1, +S2 - GI/Abdominal Exam GI & Abdominal Exam: Soft, Normal Bowel Sounds. absent: Distended, Tenderness - Extremities Exam Extremities Exam: Normal Inspection. absent: Pedal Edema, Tenderness - Neurological Exam Neurological Exam: Alert, Awake, Oriented x3 - Psychiatric Exam Psychiatric exam: Normal Affect, Normal Mood - Skin Skin Exam: Dry, Intact, Normal Color, Warm Assessment and Plan - Assessment and Plan (Free Text) Plan: Atrial Fibrillation - Normal EF by ECHO and Troponins normal - Elevated ProBNP due to renal failure - Patient not actively bleeding; gastric ulcer noted on EGD - pending GI reccs; when safe to start AC Bradycardia - Dr. Renteria consulted for possible pacemaker - Most likely 2/2 to hypothyroidism Imaging: - ECHO: LVEF 60% Management: - Noted hypothyroidism on labs; management as per primary Case discussed with Marley Espinosa DO, PGY2 <Isaiah Lockhart - Last Filed: 09/25/18 19:26> Objective - Vital Signs/Intake and Output Vital Signs (last 24 hours): Temp Pulse Resp BP Pulse Ox 97.4 F L 66 20 107/74 96 09/25/18 15:00 09/25/18 15:00 09/25/18 15:00 09/25/18 15:00 09/25/18 15:00 - Labs Labs: 09/24/18 08:21 09/24/18 08:21 PT 16.6 SECONDS (9.7-12.2) H D 09/19/18 06:24 INR 1.5 D 09/19/18 06:24 APTT 34 SECONDS (21-34) 09/16/18 11:41 Assessment and Plan - Assessment and Plan (Free Text) Plan: Patient seen and evaluated personally by me. Plan of care d/w the biomedical engineering director and as documented
[2018-09-25] MEDS: Multiple Vitamins Oral Solution PO SCH (10:19)
--- NOTE | 2018-09-25 14:36 | CP.PCM.PN ---
Subjective - Date & Time of Evaluation Date of Evaluation: 09/25/18 Time of Evaluation: 11:30 - Subjective Subjective: FAMILY NURSE NOTES patient seen today,states doing well , denies any chest pain, sob, dizziness , headache, N/V No overnight events reported by RN hgb - stable -10.3 S/P EGD-gastric ulcer - non bleeding cr - improved and stable -1.8<1.9<2.1<2.6<3.1 Objective - Vital Signs/Intake and Output Vital Signs (last 24 hours): Temp Pulse Resp BP Pulse Ox 97.3 F L 61 20 134/72 96 09/25/18 07:00 09/25/18 07:00 09/25/18 07:00 09/25/18 10:14 09/25/18 07:00 - Medications Medications: Current Medications Ascorbic Acid (Vitamin C 500 Mg Tab) 500 mg PO BID [facility] Last Admin: 09/25/18 10:15 Dose: 500 mg Furosemide (Lasix) 40 mg PO DAILY [facility] Last Admin: 09/25/18 10:14 Dose: 40 mg Multivitamins/Vitamin C (Multi-Delyn Liquid) 5 ml PO DAILY [facility] Last Admin: 09/25/18 10:19 Dose: 5 ml Pantoprazole Sodium (Protonix Inj) 40 mg IVP Q12H [facility] Last Admin: 09/25/18 04:00 Dose: 40 mg Thiamine HCl (Vitamin B1 Tab) 100 mg PO DAILY [facility] Last Admin: 09/25/18 10:15 Dose: 100 mg Zinc Sulfate (Zinc Sulfate 220 Mg Cap) 220 mg PO DAILY [facility] Last Admin: 09/25/18 10:14 Dose: 220 mg - Labs Labs: 09/24/18 08:21 09/24/18 08:21 PT 16.6 SECONDS (9.7-12.2) H D 09/19/18 06:24 INR 1.5 D 09/19/18 06:24 APTT 34 SECONDS (21-34) 09/16/18 11:41 - Constitutional Appears: Well, Non-toxic, No Acute Distress - Respiratory Exam Respiratory Exam: Clear to Ausculation Bilateral, NORMAL BREATHING PATTERN - Cardiovascular Exam Cardiovascular Exam: Bradycardia, REGULAR RHYTHM - Neurological Exam Neurological Exam: Alert, Awake (oriented to person and place ) Assessment and Plan - Assessment and Plan (Free Text) Assessment: A/P 68-year-old male with a history of atrial fibrillation, history of PVD, hypertension, history of gout in the past admitted with dehydration, Severe anemia, ARF , Elevated CK, Hyperkalemia, Dehydration, s/p PRBC transfusion and hgb stable s/p EGD- gastritis- non bleeding bradycardia - seen by Dr. Renteria today, no plan for pacemaker now , monitor for now and cleared for discharge Seen by Dr. Lockhart, cleared for discharge and can start back on eliquis if cleared by GI D/W Dr. Courtney , ref. anticoagulation, cleared to start back on eliquis patient accepted at rehab at [facility] D/w Dr. Gallardo , cleared for discharge to [facility] today and Dr. Gallardo will follow the patient at [facility] will monitor cbc and bmp at rehab
--- NOTE | 2018-09-25 14:41 | CP.PCM.PN ---
Subjective - Date & Time of Evaluation Date of Evaluation: 09/25/18 Time of Evaluation: 14:39 - Subjective Subjective: chronically ill no acute complaints no chest pain feels weak no rash no urinary complaints no palpitations appetite is fair no vomiting no arthralgias Objective - Vital Signs/Intake and Output Vital Signs (last 24 hours): Temp Pulse Resp BP Pulse Ox 97.3 F L 61 20 134/72 96 09/25/18 07:00 09/25/18 07:00 09/25/18 07:00 09/25/18 10:14 09/25/18 07:00 - Medications Medications: Current Medications Ascorbic Acid (Vitamin C 500 Mg Tab) 500 mg PO BID [facility] Last Admin: 09/25/18 10:15 Dose: 500 mg Furosemide (Lasix) 40 mg PO DAILY [facility] Last Admin: 09/25/18 10:14 Dose: 40 mg Multivitamins/Vitamin C (Multi-Delyn Liquid) 5 ml PO DAILY [facility] Last Admin: 09/25/18 10:19 Dose: 5 ml Pantoprazole Sodium (Protonix Inj) 40 mg IVP Q12H [facility] Last Admin: 09/25/18 04:00 Dose: 40 mg Thiamine HCl (Vitamin B1 Tab) 100 mg PO DAILY [facility] Last Admin: 09/25/18 10:15 Dose: 100 mg Zinc Sulfate (Zinc Sulfate 220 Mg Cap) 220 mg PO DAILY [facility] Last Admin: 09/25/18 10:14 Dose: 220 mg - Labs Labs: 09/24/18 08:21 09/24/18 08:21 PT 16.6 SECONDS (9.7-12.2) H D 09/19/18 06:24 INR 1.5 D 09/19/18 06:24 APTT 34 SECONDS (21-34) 09/16/18 11:41 - Constitutional Appears: Confused, Chronically Ill - Head Exam Head Exam: ATRAUMATIC, NORMAL INSPECTION - Eye Exam Eye Exam: EOMI - ENT Exam ENT Exam: Mucous Membranes Moist - Neck Exam Neck Exam: Full ROM. absent: Lymphadenopathy - Respiratory Exam Respiratory Exam: Clear to Ausculation Bilateral. absent: Accessory Muscle Use - Cardiovascular Exam Cardiovascular Exam: REGULAR RHYTHM. absent: Rubs - Extremities Exam Additional comments: legs cellulitic and wrapped - Neurological Exam Neurological Exam: Alert, Awake Assessment and Plan - Assessment and Plan (Free Text) Assessment: ckd 3 stable anemia afib PVD, cellulitis continue to avoid nephrotoxic agents trend labs
[2018-09-25 16:14] VITALS: BP 107/74; PULSE 66; TEMP 97.4
== END 2018-09-25 17:20 | DRG 872 ==
LOC: C.ER 07:32 → C.9E 10:17 → C.9I 19:16 → C.6T 09-17 21:05
PROVIDERS: ADMIT Internal Medicine; ATTEND Internal Medicine
PROC: 0DB68ZX Excision of Stomach, Via Natural or Artificial Opening Endoscopic, Diagnostic (ICD-10-PCS; principal; 2018-09-23 14:41)
DX: A41.9 Sepsis, unspecified organism (principal); E87.2 Acidosis; N17.9 Acute kidney failure, unspecified; K92.2 Gastrointestinal hemorrhage, unspecified; E86.0 Dehydration; E87.5 Hyperkalemia; I48.91 Unspecified atrial fibrillation; J44.9 Chronic obstructive pulmonary disease, unspecified; Z91.19 Patient's noncompliance with other medical treatment and regimen; Z88.0 Allergy status to penicillin; W01.0XXA Fall on same level from slipping, tripping and stumbling without subsequent striking against object, initial encounter; R29.6 Repeated falls; N18.3 Chronic kidney disease, stage 3 (moderate); I12.9 Hypertensive chronic kidney disease with stage 1 through stage 4 chronic kidney disease, or unspecified chronic kidney disease; E87.70 Fluid overload, unspecified; I73.9 Peripheral vascular disease, unspecified; D50.9 Iron deficiency anemia, unspecified; K25.9 Gastric ulcer, unspecified as acute or chronic, without hemorrhage or perforation; K29.70 Gastritis, unspecified, without bleeding; K29.80 Duodenitis without bleeding; F17.210 Nicotine dependence, cigarettes, uncomplicated

== ENCOUNTER 2018-12-02 18:20 | Inpatient (IN) | payer MEDICARE, BC ==
[2018-12-02 18:20] VITALS: BMI 28.1
--- NOTE | 2018-12-02 20:13 | C.PDOC ---
History Of Present Illness 68 year old male with PMHx of COPD, AFiv, alcohol abuse present to the ED for evaluation. As per triage patient presented to the ED c/o feeling weak, reporting that he fell but was Aox3. On examination patient was AOx2, patient thinks that it is February 26 1951. Patient reports he fell but does not remember when or how of if he hurt himself. Time Seen by Provider: 12/02/18 19:32 Chief Complaint (Nursing): Flu-like Symptoms History Per: Patient History/Exam Limitations: no limitations Onset/Duration Of Symptoms: Unknown Current Symptoms Are (Timing): Still Present Recent travel outside of the [place]: No Additional History Per: Patient Past Medical History Reviewed: Historical Data, Nursing Documentation, Vital Signs Vital Signs: Last Vital Signs Temp 98 F 12/02/18 18:39 Pulse 98 H 12/02/18 18:39 Resp 18 12/02/18 18:39 BP 104/60 12/02/18 18:39 Pulse Ox 98 12/02/18 18:39 - Medical History PMH: COPD, Fractures ("I broke my Left foot 1988"), HTN Denies: Chronic Kidney Disease Other PMH: AFIV Surgical History: Tonsillectomy (At 3 years old) Denies: Pacemaker - [facility] Procedures ANGIOPLASTY OF OTHER NON-CORONARY VESSEL(S) (05/01/14) DILATE R FEM ART W INTRALUM DEV, DRUG BLLN, PERC (02/07/16) EXCISION OF RIGHT KNEE TENDON, OPEN APPROACH (02/07/16) EXCISION OF RIGHT LOWER LEG MUSCLE, OPEN APPROACH (02/07/16) EXCISION OF STOMACH, ENDO, DIAGN (09/15/18) EXTIRPATION OF MATTER FROM R FEM ART, PERC APPROACH (02/07/16) INSEJ VGY-PUAL-CEZILBC PERIPHERAL NON-CORONARY VES STENT(S) (05/01/14) INSERTION OF TWO VASCULAR STENTS (05/01/14) INTRODUCE OF OTH THROMBOLYTIC INTO PERIPH ART, PERC APPROACH (02/07/16) PROCEDURE ON TWO VESSELS (05/01/14) REPLACE R LOW LEG SKIN W AUTOL SUB, FULL THICK, FORCE VARIATION EQUIPMENT TENDER (02/07/16) REPLACE R LOW LEG SKIN W AUTOL SUB, PART THICK, FORCE VARIATION EQUIPMENT TENDER (02/07/16) TRANSFUSE NONAUT RED BLOOD CELLS IN PERIPH VEIN, PERC (02/07/16) Family History: States: Unknown Family Hx - Social History Hx Alcohol Use: Yes (2X WEEK) Hx Substance Use: No - Immunization History Hx Tetanus Toxoid Vaccination: No Hx Influenza Vaccination: No Hx Pneumococcal Vaccination: No Review Of Systems Constitutional: Positive for: Weakness. Negative for: Fever, Chills Eyes: Negative for: Vision Change Cardiovascular: Negative for: Chest Pain, Palpitations Respiratory: Negative for: Cough, Shortness of Breath Gastrointestinal: Negative for: Nausea, Vomiting, Abdominal Pain Skin: Negative for: Rash Neurological: Negative for: Weakness, Numbness, Headache, Dizziness Physical Exam - Physical Exam Appears: Non-toxic, No Acute Distress, Unkempt Skin: Normal Color, Warm, Dry, Other (bilateral lower extremities chronic scars, erythematous, no increase warmth or signs of cellulitis/) Head: Atraumatic, Normacephalic Eye(s): bilateral: Normal Inspection, PERRL, EOMI Oral Mucosa: Dry (slightly ) Neck: Normal ROM, Supple Chest: Symmetrical Cardiovascular: Rhythm Irregular (irregularly irregular, not tachycardic) Respiratory: Normal Breath Sounds, No Rales, No Rhonchi, No Wheezing Gastrointestinal/Abdominal: Soft, No Tenderness, No Guarding, No Rebound Back: No CVA Tenderness, Other (left posterior lower rib cage tenderness, healing contusions) Extremity: Bilateral: Atraumatic, Normal ROM Pulses: Left Dorsalis Pedis: Normal, Right Dorsalis Pedis: Normal Neurological/Psych: No Oriented x3 (AoX2), Normal Speech, Normal Cognition Disoriented To: Time Gait: Steady ED Course And Treatment - Laboratory Results Result Diagrams: 12/10/18 09:03 12/10/18 09:03 ECG Rhythm: Atrial Fibrillation (RVR), R BBB Interpretation Of ECG: AFiv RVR at 113, with left axis deviation and prolonged QTs. Rate From EC (BPM) O2 Sat by Pulse Oximetry: 98 (ON RA) Pulse Ox Interpretation: Normal - CT Scan/US CT head Other Rad Studies (CT/US): Read By Radiologist, Radiology Report Reviewed CT/US Interpretation: EXAM: CT Head without Intravenous Contrast. CLINICAL HISTORY: AMS/WEAKNESS. TECHNIQUE: Axial computed tomography images of the head/brain without intravenous contrast. COMPARISON: CT\\SD\\SR - HEAD W/O CONTRAST - 09/15/2018 09:07 AM EST. FINDINGS: BRAIN. Chronic periventricular and subcortical microvascular disease is seen. There is generalized parenchymal atrophy noted as demonstrated by symmetrical dilatation of ventricles and sulci. 3.5 x 3.1 x 2.2 cm acute hemorrhage centered on the right thalamus with local mass effect and slight midline shift to the left measuring approximately 3 mm. VENTRICLES: There is evidence of hemorrhage within the right lateral ventricle. ORBITS: The orbits are unremarkable. SINUSES AND MASTOIDS: The paranasal sinuses and mastoid air cells are clear. BONES: No fracture. SOFT TISSUES: Unremarkable. IMPRESSION: 1. Generalized parenchymal atrophy noted as demonstrated by symmetrical dilatation of ventricles and sulci. 2. Chronic pe riventricular and subcortical microvascular disease is seen. 3. 3.5 x 3.1 x 2.2 cm acute hemorrhage centered on the right thalamus with local mass effect and slight midline shift to the left measuring approximately 3 mm. There is evidence of hemorrhage within the right lateral ventricle. . Electronically signed on Dec 02, 2018 9:07:34 PM EST by: Isaiah Hernandez M.D., BENITEZ Certified By ABR & CBCCT. Fellowship Trained MRI and CT Specialis CTA neck Other Rad Studies (CT/US): Read By Radiologist, Radiology Report Reviewed CT/US Interpretation: CT angiography of the neck. Indication: Right thalamic hemorrhage. Technique: Axial CT angiographic images. Reformatted coronal and sagittal images. Degree stenosis is based upon NASCET II criteria. RIGHT CAROTID ARTERIES: 30% narrowing of the right common carotid artery (CCA). Complete chronic occlusion of the right common carotid bulb. Complete chronic occlusion of the origin of the right internal carotid (ICA) artery. visualized cervical portion of the right internal carotid artery. Normal origin of the right external carotid artery (ECA). LEFT CAROTID ARTERIES: Complete occlusion of the left common carotid artery (CCA). Complete occlusion of the left common carotid bulb. Complete occlusion of the origin of the left internal carotid (ICA) artery. Complete occlusion of the visualized cervical portion of the left internal carotid artery. Complete occlusion of the origin of the left external carotid artery (ECA). VERTEBRAL ARTERIES: Complete chronic occlusion of the pr oximal third of the left vertebral artery. Moderate chronic multifocal narrowing of the vertebral arteries. IMPRESSION: Chronic multifocal stenosis/occlusion as described above. CT angiography of the head. Indication: Right thalamic hemorrhage. Technique: Axial CT angiographic images. Reformatted coronal and sagittal images. Degree stenosis is based upon NASCET II criteria. FINDINGS: High-grade multifocal chronic stenosis/occlusion of the bilateral petrous carotid arteries. Moderate narrowing of the right cavernous carotid artery with a normal supraclinoid bifurcation. High-grade severe stenosis of the left cavernous carotid artery with a normal supraclinoid bifurcation. Normal right A1 segments of the anterior cerebral artery. Normal left A1 segments of the anterior cerebral artery. Normal intact anterior communicating artery (ACOM). Normal bilateral A2 segments of the anterior cerebral arteries. Normal right M1 and M2 segments of the middle cerebral arteries, with a normal M1 bifurcation. Normal left M1 and M2 segments of the middle cerebral arteries, with a normal M1 bifurcation. Normal right posterior communicating artery (PCOM). Normal left posterior communicating artery (PCOM). . Moderate multifocal stenosis of bilateral vertebral arteries on the left. Normal basilar artery with a normal basilar bifurcation. The visualized bilateral superior cerebellar (SCA) arteries are normal. There is no demonstrated aneurysm of the [place]. IMPRESSION: Moderate to severe right high- grade/subocclusive stenosis and/or occlusion of the petrous portions of the internal carotid arteries. Moderate to severe bilateral left narrowing of the cavernous portions of the internal carotid arteries. . Electronically signed on Dec 03, 2018 1:21:11 AM EST by: Freeman Bowman M.D., Certified by GARRET, MSK, Neuroradiology Medical Decision Making Medical Decision Making: Plan: * CT head * EKG * Labs * CXR * Blood culture * Urine culture * UA 21:31 - spoke with Dr. Mondragon neurosurgery health communications specialist who advises to call Neurology health communications specialist. 21:37 - spoke with Dr. Metcalf neurology health communications specialist who wants the patient to have CTA h ead and neck done and for the patient to be admitted to ICU. 21:42 - Spoke with Dr. Gandhi ICU health communications specialist who accepts the patient for admission to ICU. 21:47 - spoke with Dr. Gallardo who accepts the patient for admission to his service. Disposition - Disposition Disposition: HOSPITALIZED Disposition Time: 21:47 Condition: SERIOUS - Clinical Impression Clinical Impression: Thalamic hemorrhage, Elevated CK, CKD (chronic kidney disease) stage 3, GFR 30- 59 ml/min - Scribe Statement The provider has reviewed the documentation as recorded by the Scribe Aki Ramirezjia All medical record entries made by the Scribe were at my direction and personally dictated by me. I have reviewed the chart and agree that the record accurately reflects my personal performance of the history, physical exam, medical decision making, and the department course for this patient. I have also personally directed, reviewed, and agree with the discharge instructions and disposition.
[2018-12-02 20:23] LABS: BASO # 0.1 K/uL (0.0-0.2); BASO % 0.7 % (0.0-2.0); EOS # 0.1 K/uL (0.0-0.7); EOS % 1.2 % (0.0-4.0); LYMPH # 1.2 K/uL (1.0-4.3); LYMPH % 12.9 % (20.0-40.0); MEAN CELL VOLUME 93.1 fL (80.0-94.0); MEAN CORPUSCULAR HEMOGLOBIN 29.6 pg (27.0-31.0); MEAN CORPUSCULAR HGB CONC 31.8 g/dL (33.0-37.0); MEAN PLATELET VOLUME 9.2 fL (7.2-11.7); MONO # 0.7 K/uL (0.0-0.8); MONO % 7.8 % (0.0-10.0); NEUT # 7.2 K/uL (1.8-7.0); NEUT % 77.4 % (50.0-75.0); RBC 3.72 Mil/uL (4.40-5.90); RED CELL DISTRIBUTION WIDTH 16.7 % (11.5-14.5); WHITE BLOOD COUNT 9.3 K/uL (4.8-10.8)
[2018-12-02 20:28] LABS: ALB/GLOB RATIO 1.2 (1.0-2.1); ALBUMIN 3.7 g/dL (3.5-5.0); ALT/SGPT 20 U/L (21-72); AST/SGOT 71 U/L (17-59); BLOOD UREA NITROGEN 51 mg/dL (9-20); CALCIUM 8.6 mg/dl (8.6-10.4); GFR NON-AFRICAN AMERICAN 27
[2018-12-02] MEDS ORDERED: Iodixanol 320 MG/ML 100 ML BOTTLE IV ONE (21:59)
--- NOTE | 2018-12-02 22:43 | CP.PCM.CON ---
History of Present Illness - History of Present Illness History of Present Illness: Attending: Dr Gallardo PMD: Dr Ruth Reason for consult:Critical care Management Chief complaint: Unsteady gait with generalize weakness. HPI: The hx is obtained from the ED Physician and some from the patient who does have trouble with memory and with wore finding. This is a 68 years old male with hx of Chronic A Fib on Eliquis bid, Alcohol abuse and CKD. He comes to the ED because of worsening of his weakness today and him having unsteady gait and frequent falls. His last fall was a few days ago when he received trauma to the left forehead. He last took Alcohol one week ago. He refers no headache, dizziness, nausea nor vomits. No SOB palpitation nor chest Pain. In The ED he is Alert with clear speech an left facial weakness. 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 absent: Anorexia, Chills, Fatigue, Fever, Headache - EENT Eyes: absent: Blurred Vision, Floaters, Requires Corrective Lenses Ears: absent: Ear Discharge, Tinnitus Nose/Mouth/Throat: absent: Epistaxis, Nasal Congestion, Nasal Discharge - Cardiovascular Cardiovascular: Edema. absent: Chest Pain, Dyspnea - Respiratory Respiratory: absent: Cough, Dyspnea, Wheezing, Stridor - Gastrointestinal Gastrointestinal: absent: Constipation, Diarrhea, Nausea, Vomiting - Genitourinary Genitourinary: absent: Dysuria, Flank Pain, Urinary Frequency - Musculoskeletal Musculoskeletal: Abnormal Gait. absent: Muscle Weakness, Myalgias Additional comments: Unsteady gait - Integumentary Integumentary: absent: Pruritus, Rash Additional comments: Hyperpigmented skin at the legs. - Neurological Neurological: Focal Weakness, Weakness. absent: Confusion - Psychiatric Psychiatric: absent: Anxiety, Change in Appetite, Hopelessness, Irritability - Endocrine Endocrine: absent: Palpitations, Polydipsia, Polyphagia, Polyuria - Hematologic/Lymphatic Hematologic: absent: Easy Bleeding, Easy Bruising Past Patient History - Tetanus Immunizations Tetanus Immunization: Refused - Past Medical History & Family History Past Medical History?: Yes - Past Social History Smoking Status: Former Smoker Chewing Tobacco Use: No Cigar Use: No Alcohol: Occasional Drugs: Denies, Inhalants Home Situation {Lives}: Alone - CARDIAC Hx Hypertension: Yes Hx Pacemaker: No - PULMONARY Hx Chronic Obstructive Pulmonary Disease (COPD): Yes - NEUROLOGICAL Hx Neurological Disorder: No Hx Paralysis: No Hx Vertigo: No - HEENT Hx Deafness: (mild decrease) - RENAL Hx Chronic Kidney Disease: No - ENDOCRINE/METABOLIC Hx Endocrine Disorders: No - HEMATOLOGICAL/ONCOLOGICAL Hx Blood Disorders: No Hx Blood Transfusions: Yes Hx Blood Transfusion Reaction: No - INTEGUMENTARY Hx Dermatological Problems: Yes Other/Comment: both lower ext w/ pinkish discoloration and mult.abraisions - MUSCULOSKELETAL/RHEUMATOLOGICAL Hx Fractures: Yes ("I broke my Left foot 1988") - GASTROINTESTINAL Hx Gastrointestinal Disorders: No - GENITOURINARY/GYNECOLOGICAL Hx Genitourinary Disorders: No - PSYCHIATRIC Hx Substance Use: No - SURGICAL HISTORY Hx Tonsillectomy: Yes (At 3 years old) Other/Comment: Right Leg surgical intervention - ANESTHESIA Hx Anesthesia: Yes Hx Anesthesia Reactions: No Hx Malignant Hyperthermia: No Meds Allergies/Adverse Reactions: Allergies Allergy/AdvReac Type Severity Reaction Status Date / Time Penicillins Allergy Verified 02/07/16 17:02 Physical Exam - Constitutional Appears: No Acute Distress - Head Exam Head Exam: NORMOCEPHALIC Additional comments: Healing hematoma at the left frontal region of the head - Eye Exam Eye Exam: Normal appearance Pupil Exam: NORMAL ACCOMODATION, PERRL - ENT Exam ENT Exam: Mucous Membranes Dry, Normal External Ear Exam - Neck Exam Neck exam: Positive for: Full Rom, Normal Inspection. Negative for: Lymphadenopathy, Tenderness - Respiratory Exam Respiratory Exam: Clear to Auscultation Bilateral. absent: Rales, Rhonchi, Wheezes - Cardiovascular Exam Cardiovascular Exam: Irregular Rhythm, +S1, +S2. absent: Gallop, JVD - GI/Abdominal Exam GI & Abdominal Exam: Normal Bowel Sounds, Soft. absent: Mass, Tenderness - Rectal Exam Rectal Exam: Deferred - Extremities Exam Additional comments: Both legs with hyperpigmented state with mild tenderness on palpation of the left ankle - Back Exam Back exam: NORMAL INSPECTION. absent: CVA tenderness (L), CVA tenderness (R) - Neurological Exam Neurological exam: Alert, CN II-XII Intact Additional comments: Awake, Alert, Oriented in place and person. Left facial droop. Left upper and left lower extremities with motor strength 4/5 - Psychiatric Exam Psychiatric exam: Normal Affect, Normal Mood - Skin Skin Exam: Intact, Warm Additional comments: Both legs Distal 2/3 with Hyperpigmentation Results - Vital Signs Recent Vital Signs: Last Vital Signs Temp 98 F 12/02/18 18:39 Pulse 63 12/02/18 21:15 Resp 18 12/02/18 18:39 BP 126/66 12/02/18 21:15 Pulse Ox 98 12/02/18 22:01 - Labs Result Diagrams: 12/02/18 20:10 12/02/18 20:10 Labs: Laboratory Results - last 24 hr 12/02/18 12/02/18 12/02/18 18:31 20:10 20:10 WBC 9.3 RBC 3.72 L Hgb 11.0 L Hct 34.7 L MCV 93.1 D MCH 29.6 MCHC 31.8 L RDW 16.7 H Plt Count 220 MPV 9.2 Neut % (Auto) 77.4 H Lymph % (Auto) 12.9 L [place] % (Auto) 7.8 Eos % (Auto) 1.2 Baso % (Auto) 0.7 Neut # (Auto) 7.2 H Lymph # (Auto) 1.2 [place] # (Auto) 0.7 Eos # (Auto) 0.1 Baso # (Auto) 0.1 APTT Sodium 140 Potassium 3.5 L Chloride 103 Carbon Dioxide 25 Anion Gap 16 BUN 51 H Creatinine 2.4 H Est GFR ( Amer) 33 Est GFR (Non-Af Amer) 27 POC Glucose (mg/dL) 88 Random Glucose 80 D Calcium 8.6 Magnesium 1.7 Total Bilirubin 1.4 H AST 71 H D ALT 20 L D Alkaline Phosphatase 99 Ammonia Total Creatine Kinase 914 H Troponin I 0.0780 Total Protein 6.7 Albumin 3.7 Globulin 3.0 Albumin/Globulin Ratio 1.2 TSH 3rd Generation 3.51 Alcohol, Quantitative < 10 12/02/18 12/02/18 20:10 20:10 WBC RBC Hgb Hct MCV MCH MCHC RDW Plt Count MPV Neut % (Auto) Lymph % (Auto) [place] % (Auto) Eos % (Auto) Baso % (Auto) Neut # (Auto) Lymph # (Auto) [place] # (Auto) Eos # (Auto) Baso # (Auto) APTT 32 Sodium Potassium Chloride Carbon Dioxide Anion Gap BUN Creatinine Est GFR ( Amer) Est GFR (Non-Af Amer) POC Glucose (mg/dL) Random Glucose Calcium Magnesium Total Bilirubin AST ALT Alkaline Phosphatase Ammonia < 9 L Total Creatine Kinase Troponin I Total Protein Albumin Globulin Albumin/Globulin Ratio TSH 3rd Generation Alcohol, Quantitative - Imaging and Cardiology Chest x-ray Status: Image reviewed by me Additional comment: Increased bronchovascular markings Left costophrenic angle Hazy CT scan - head Status: Image reviewed by me, Report reviewed by me Additional comment: CT Head without Intravenous Contrast. FINDINGS: BRAIN. Chronic periventricular and subcortical microvascular disease is seen. There is generalized parenchymal atrophy noted as demonstrated by symmetrical dilatation of ventricles and sulci. 3.5 x 3.1 x 2.2 cm acute hemorrhage centered on the right thalamus with local mass effect and slight midline shift to the left measuring approximately 3 mm. VENTRICLES: There is evidence of hemorrhage within the right lateral ventricle. ORBITS: The orbits are unremarkable. SINUSES AND MASTOIDS: The paranasal sinuses and mastoid air cells are clear. BONES: No fracture. SOFT TISSUES: Unremarkable. IMPRESSION: 1. Generalized parenchymal atrophy noted as demonstrated by symmetrical dilatation of ventricles and sulci. 2. Chronic periventricular and subcortical microvascular disease is seen. 3. 3.5 x 3.1 x 2.2 cm acute hemorrhage centered on the right thalamus with local mass effect and slight midline shift to the left measuring approximately 3 mm. There is evidence of hemorrhage within the right lateral ventricle. Assessment & Plan - Assessment and Plan (Free Text) Assessment: #. Acute intracraneal bleed #. Chronic A Fib #. Anemia #. CKD #. Hypokalemia #. Multiple Falls #. Alcohol abuse Plan: 68 years old male with hx of Chronic A Fib on Eliquis bid, Alcohol abuse and CKD. He comes to the ED because of worsening of his weakness today, unsteady gait and frequent falls. In The ED he is Alert with clear speech an left facial weakness. #. Acute intracraneal bleed at right Thalamus and right lateral ventricle - Neurology Dr Metcalf on consult - Neurosurgery Dr Mondragon was called by ED - CT head showed the right thalamic bleed - CTA of head and neck ordered - Repeat CT of head without contrast in 12 hours - Admit to ICU for management - Hold Eliquis - Neuro checks Q1H - NPO - Swallow evaluation - IV Fluid - Lipid Panel - HbA1c - OT/PT #. Chronic A Fib - Hold Eliquis because of the cerebral bleed and hx of frequent falls - Control rate with Parenteral medication until patient could take oral meds. #. Anemia of chronic disease - Follow H/H #. Acute on chronic Kidney disease - IV Fluids - Follow Renal labs #. Hypokalemia - Follow electrolytes #. Multiple Falls - OT/PT #. Alcohol abuse - Banana Bag which includes, Thiamine, Folic Acid and Multivitamin #. DVT propphylaxis with TEDs [place] - No anticoagulant because of the cerebral bleed - No SCD because of the PVD and stents in the legs #. Stress Ulcer Prophylaxis with Pantoprazole. - Date & Time Date: 12/02/18 Time: 22:43
[2018-12-02] MEDS ORDERED: Sodium Chloride 0.9% 1,000 ML IV SCH (23:30)
[2018-12-02] MEDS ORDERED: Multivitamin (MVI) 10 ML, Thiamine 100 MG, Folic Acid 1 MG in Sodium Chloride 0.9% 1,00... IV ONE (23:32)
[2018-12-02] MEDS ORDERED: Sodium Chloride 0.9% 1,000 ML ONE (23:36)
[2018-12-02] MEDS ORDERED: Albuterol-Ipratrop 3 mg / 0.5 (3 ml) UD INH PRN (23:59)
[2018-12-03 06:56] LABS: BASO # 0.1 K/uL (0.0-0.2); BASO % 1.1 % (0.0-2.0); EOS # 0.4 K/uL (0.0-0.7); EOS % 4.2 % (0.0-4.0); HEMOGLOBIN 10.1 g/dL (12.0-18.0); LYMPH # 1.5 K/uL (1.0-4.3); LYMPH % 16.7 % (20.0-40.0); MEAN CELL VOLUME 92.4 fL (80.0-94.0); MEAN CORPUSCULAR HGB CONC 32.5 g/dL (33.0-37.0); MEAN PLATELET VOLUME 9.1 fL (7.2-11.7); MONO # 0.7 K/uL (0.0-0.8); MONO % 7.2 % (0.0-10.0); NEUT # 6.5 K/uL (1.8-7.0); NEUT % 70.8 % (50.0-75.0); NRBC % 0.1 % (0.0-2.0); RBC 3.38 Mil/uL (4.40-5.90); RED CELL DISTRIBUTION WIDTH 16.3 % (11.5-14.5); WHITE BLOOD COUNT 9.2 K/uL (4.8-10.8)
--- NOTE | 2018-12-03 08:17 | CT ---
Date of service: 12/02/2018 PROCEDURE: CT HEAD WITHOUT CONTRAST. HISTORY: Altered mental status COMPARISON: None available. TECHNIQUE: Axial computed tomography images were obtained through the head/brain without intravenous contrast. Radiation dose: Total exam DLP = 1231.88 mGy-cm. This CT exam was performed using one or more of the following dose reduction techniques: Automated exposure control, adjustment of the mA and/or kV according to patient size, and/or use of iterative reconstruction technique. FINDINGS: HEMORRHAGE: Centered in the right thalamus with apparent extension to the right lateral ventricle there is a 4.3 x 2.1 x 3.0 centimeter focal area of acute hemorrhage. There is surrounding edema as well as local mass-effect. Apparent slight midline shift to the left measuring approximately 4 millimeters. BRAIN: See above. Generalized parenchymal atrophy. Scattered focal lucencies in the subcortical and periventricular white matter suggestive for chronic microvascular ischemic change. VENTRICLES: Hemorrhage within the right lateral ventricle with associated right to left midline shift as described above. CALVARIUM: Unremarkable. PARANASAL SINUSES: Mild mucosal thickening of the right maxillary sinus. MASTOID AIR CELLS: Unremarkable as visualized. No inflammatory changes. OTHER FINDINGS: Streak artifact in the posterior fossa markedly limits evaluation. IMPRESSION: Centered in the right thalamus with apparent extension to the right lateral ventricle there is a 4.3 x 2.1 x 3.0 centimeter focal area of acute hemorrhage. There is surrounding edema as well as local mass-effect. Apparent midline shift to the left measuring approximately 4 millimeters. Further evaluation with MRI/MRA would be helpful if clinically indicated. A preliminary report was generated at 9:07 p.m. on 12/02/[address] Isaiah Hernandez from [facility]
--- NOTE | 2018-12-03 08:34 | CP.PCM.PN ---
Subjective - Date & Time of Evaluation Date of Evaluation: 12/03/18 Time of Evaluation: 08:31 - Subjective Subjective: adm last night CT lat thalamic hemmorhage remains awake and alert Repeat CT pending Unless there is change in MS or sig change in CT no intervention indicated Hold [employer] Objective - Vital Signs/Intake and Output Vital Signs (last 24 hours): Temp Pulse Resp BP Pulse Ox 98.7 F 63 23 115/58 L 93 L 12/03/18 04:00 12/03/18 07:00 12/03/18 07:00 12/03/18 06:39 12/03/18 06:00 Intake and Output: 12/03/18 12/03/18 06:59 18:59 Intake Total 450 75 Balance 450 75 - Medications Medications: Current Medications Albuterol/Ipratropium (Duoneb 3 Mg/0.5 Mg (3 Ml) Ud) 3 ml INH RQ6 PRN PRN Reason: Shortness of Breath Multivitamins/Vitamin C 10 ml/Thiamine HCl 100 mg/ Folic Acid 1 mg/ Sodium Chloride 1,011.2 mls @ 75 mls/hr IV .[id number] ONE Stop: 12/03/18 13:00 Last Admin: 12/02/18 23:50 Dose: 75 mls/hr Pantoprazole Sodium (Protonix Inj) 40 mg IVP DAILY CADY - Labs Labs: 12/03/18 06:49 12/03/18 05:51 APTT 32 SECONDS (21-34) 12/02/18 20:10
--- NOTE | 2018-12-03 11:33 | RAD ---
HISTORY: AMS COMPARISON: Chest x-ray performed 09/18/18 TECHNIQUE: Chest, one view. FINDINGS: Examination limited by habitus. LUNGS: Hyperinflation may be seen in the setting of COPD. Right hilar prominence. Please note that chest x-ray has limited sensitivity for the detection of pulmonary masses. PLEURA: No significant pleural effusion identified. No definite pneumothorax . CARDIOVASCULAR: Cardiomegaly. Atherosclerotic calcifications. OSSEOUS STRUCTURES: Degenerative changes. VISUALIZED UPPER ABDOMEN: Unremarkable. OTHER FINDINGS: None. IMPRESSION: Cardiomegaly. Right hilar prominence. Hyperinflation.
--- NOTE | 2018-12-03 12:35 | CT ---
Date of service: 12/03/2018 PROCEDURE: CT Angiography of the neck and brain HISTORY: Right thalamic hemorrhage COMPARISON: Comparison made with concurrent CT scan brain TECHNIQUE: Contiguous axial images of the neck and brain were obtained from the level of the vertex of the skull to the superior mediastinum in the arteriographic phase of enhancement. Coronal and sagittal reformats or also generated. IV contrast dose: 100 cc Visipaque 320 Radiation dose: Total exam DLP = 626.97 mGy-cm. This CT exam was performed using one or more of the following dose reduction techniques: Automated exposure control, adjustment of the mA and/or kV according to patient size, and/or use of iterative reconstruction technique. FINDINGS: Minor calcified atherosclerotic plaque seen along the inferomedial aspect of the transverse portion of the aortic arch and at the origins of the left subclavian and left common carotid artery. There is also calcifications seen along the right subclavian artery at the origin of the right vertebral artery. There is occlusion of the left approximately 5.6 cm of distal to its origin of the base of the neck. The internal carotid and external carotid arteries are also occluded. There is soft and partially calcified atherosclerotic plaque seen along most of the right common carotid artery with occlusion of the at the level of the origin of the right internal carotid artery. There appears to be faint enhancement of small caliber on mid to distal petrous and cavernous segments possibly due to some retrograde flow across the [id number]. There asymmetry of the vertebral arteries right-sided which is larger in caliber/more dominant than the left. Significant atherosclerotic plaque with severe stenosis noted at the level of the proximal 1/3 of the right vertebral artery at approximately the level of the C4 segment.. Basilar artery is patent. The supraclinoid carotid arteries are small in caliber more so on the left side though patent again likely due to cross flow via [id number] and posterior circulation. The middle cerebral arteries are asymmetric in size right-sided which is larger in caliber than the left side. The distal branches of the middle cerebral artery visible and appear relatively symmetric. The anterior cerebral arteries also exhibit small caliber. Distal proximal A2 segments arteries are also of patent so far as can be seen. The proximal posterior cerebral arteries are also patent.. The distal branches of the posterior cerebral arteries appear patent as well so far as can be seen. No evidence of large aneurysm nor vascular malformation. Redemonstrated is a elliptical shaped right thalamic hemorrhage. No evidence of large aneurysm nor vascular malformation. OTHER FINDINGS: no aortic atherosclerotic calcification or mural plaque present. IMPRESSION: There is occlusion of the proximal left common carotid artery carotid carotid artery.. Complete occlusion of the right internal carotid artery. High-grade stenosis of the right vertebral artery with small caliber hypoplastic appearing left vertebral artery. There is intra cerebral flow into the anterior middle cerebral arteries via the [id number] provided by the both vertebral arteries. No evidence of large aneurysm nor vascular malformation.
--- NOTE | 2018-12-03 12:45 | CT ---
Date of service: 12/03/2018 PROCEDURE: CT HEAD WITHOUT CONTRAST. HISTORY: Follow-up right thalamic hemorrhage COMPARISON: None available. Comparison made with prior CT scan brain 12/02/2018.. TECHNIQUE: Axial computed tomography images were obtained through the head/brain without intravenous contrast. Radiation dose: Total exam DLP = 1573.19 mGy-cm. This CT exam was performed using one or more of the following dose reduction techniques: Automated exposure control, adjustment of the mA and/or kV according to patient size, and/or use of iterative reconstruction technique. FINDINGS: HEMORRHAGE: Redemonstrated is a elliptical shaped on hematoma in the right thalamus which measures approximately 3.5 x 1.8 x 3.2 cm.. This hematoma surrounded by a demarcating rim of low-attenuation edema and or necrotic brain tissue. The hemorrhage and surrounding attendant edema exert adjacent mass effect with compression of the right lateral ventricle and slight shift of the septum pellucidum from right to left approximately 7 mm. Hemorrhage is also decompressed into the right frontal horn and to a lesser degree mid body of the right lateral ventricle.. Small amount of hemorrhage is also seen layering in the dependent portion of both occipital horns. BRAIN: Mild chronic periventricular white matter the present. There are chronic ischemic changes within the brainstem and suspected within both basal nuclei. Moderate generalized volume loss. Vascular calcifications both carotid siphons. VENTRICLES: Unremarkable. No hydrocephalus. CALVARIUM: Unremarkable. PARANASAL SINUSES: Unremarkable as visualized. No significant inflammatory changes. Mild mucosal thickening noted within the ethmoid air complex extending into the inferior margin of the frontal sinus. Mild mucosal thickening right and to a lesser degree left maxillary antra. Minimal mucosal thickening right chamber sphenoid sinus. MASTOID AIR CELLS: Unremarkable as visualized. No inflammatory changes. OTHER FINDINGS: None. IMPRESSION: There is a moderate-sized hemorrhage within the right thalamus surrounded by a rim of low-attenuation edema. Hemorrhage and edema exert adjacent mass effect with compression of the right lateral ventricle and mild shift of the septum pellucidum from right to left. Hemorrhage has decompressed into the ventricular system as above. Mild chronic white matter ischemic changes with brainstem and suspected bilateral basal nuclei ischemic changes. Moderate generalized volume loss.
--- NOTE | 2018-12-03 13:09 | CP.PCM.CON ---
History of Present Illness - History of Present Illness History of Present Illness: Neurology Consult Note for Dr. Metcalf HPI: Patient is a 68 year old male with history of Atrial fibrillation on Eliquis, alcohol abuse, who presents for generalized weakness, frequent falls, and unsteady gait. He states he fell a few days ago when he sustained injury to his left forehead. He admits to alcohol use daily, however is unable to specify amount. He denies headache, dizziness, nausea, vomiting, lightheadedness, dizziness, chest pain, abdominal pain, vision changes or hearing changes. He also has chronic wound on his left leg. PMH: HTN, Atrial fibrillation on Eliquis, PVD, CKD, fracture to left foot, COPD PSH: tonsillectomy, right leg surgery Social hx: former smoker, now using electronic cigarettes. (+) ETOH use - daily, unable to specify amount, drinks beer. (-) drug use. Lives alone. Uses cane to ambulate Family hx: Mother - Cancer. Father - Heart disease Allergies: PCN Home meds: reviewed Review of Systems - Constitutional Constitutional: Frequent Falls. absent: Anorexia, Chills, Fever - EENT Eyes: absent: Blurred Vision Ears: absent: Ear Discharge, Disequilibrium, Dizziness Nose/Mouth/Throat: absent: Nasal Congestion, Hoarsness, Sore Throat - Cardiovascular Cardiovascular: absent: Chest Pain, Dyspnea - Respiratory Respiratory: absent: Cough, Dyspnea - Gastrointestinal Gastrointestinal: absent: Abdominal Pain, Nausea, Vomiting - Genitourinary Genitourinary: absent: Dysuria - Musculoskeletal Musculoskeletal: absent: Back Pain Additional comments: Unsteady gait - Integumentary Additional comments: Lower extremity skin changes - Neurological Neurological: Weakness - Psychiatric Psychiatric: absent: Anxiety Past Patient History - Tetanus Immunizations Tetanus Immunization: Refused - Past Medical History & Family History Past Medical History?: Yes - Past Social History Smoking Status: Former Smoker Chewing Tobacco Use: No Cigar Use: No Alcohol: Occasional Drugs: Denies, Inhalants Home Situation {Lives}: Alone - CARDIAC Hx Hypertension: Yes - PULMONARY Hx Chronic Obstructive Pulmonary Disease (COPD): Yes - NEUROLOGICAL Hx Neurological Disorder: No Hx Paralysis: No Hx Vertigo: No - HEENT Hx Deafness: (mild decrease) - RENAL Hx Chronic Kidney Disease: No - ENDOCRINE/METABOLIC Hx Endocrine Disorders: No - HEMATOLOGICAL/ONCOLOGICAL Hx Blood Disorders: No Hx Blood Transfusions: Yes Hx Blood Transfusion Reaction: No - INTEGUMENTARY Hx Dermatological Problems: Yes Other/Comment: both lower ext w/ pinkish discoloration and mult.abraisions - MUSCULOSKELETAL/RHEUMATOLOGICAL Hx Fractures: Yes ("I broke my Left foot 1988") - GASTROINTESTINAL Hx Gastrointestinal Disorders: No - GENITOURINARY/GYNECOLOGICAL Hx Genitourinary Disorders: No - PSYCHIATRIC Hx Substance Use: No - SURGICAL HISTORY Hx Tonsillectomy: Yes (At 3 years old) - ANESTHESIA Hx Anesthesia: Yes Hx Anesthesia Reactions: No Hx Malignant Hyperthermia: No Meds Allergies/Adverse Reactions: Allergies Allergy/AdvReac Type Severity Reaction Status Date / Time Penicillins Allergy Verified 02/07/16 17:02 - Medications Medications: Current Medications Albuterol/Ipratropium (Duoneb 3 Mg/0.5 Mg (3 Ml) Ud) 3 ml INH RQ6 PRN PRN Reason: Shortness of Breath Multivitamins/Vitamin C 10 ml/Thiamine HCl 100 mg/ Folic Acid 1 mg/ Sodium Chloride 1,011.2 mls @ 75 mls/hr IV .[id number] ONE Stop: 12/03/18 13:00 Last Admin: 12/02/18 23:50 Dose: 75 mls/hr Potassium Chloride (Potassium Chloride 20 Meq/100 Ml) 20 meq in 100 mls @ 50 mls/hr IVPB ONCE ONE Stop: 12/03/18 13:14 Sodium Chloride (Sodium Chloride 0.9%) 1,000 mls @ 75 mls/hr IV .[id number] [facility] Pantoprazole Sodium (Protonix Inj) 40 mg IVP DAILY [facility] Last Admin: 12/03/18 09:56 Dose: 40 mg Physical Exam - Constitutional Appears: No Acute Distress - Head Exam Head Exam: ATRAUMATIC, NORMOCEPHALIC - Eye Exam Eye Exam: EOMI, PERRL - ENT Exam ENT Exam: Mucous Membranes Dry - Neck Exam Neck exam: Positive for: Full Rom. Negative for: Tenderness - Respiratory Exam Respiratory Exam: Clear to Auscultation Bilateral, NORMAL BREATHING PATTERN - Cardiovascular Exam Cardiovascular Exam: Irregular Rhythm, +S1, +S2 - GI/Abdominal Exam GI & Abdominal Exam: Normal Bowel Sounds, Soft. absent: Tenderness - Exam Additional comments: Meade in place - Extremities Exam Extremities exam: Negative for: calf tenderness Additional comments: Skin changes bilaterally on lower extremities. - Neurological Exam Neurological exam: Alert, CN II-XII Intact Additional comments: Strength 5/5 in upper extremities Lower extremities strength slightly decreased secondary to pain from wound on r ight leg Unable to assess heel to monter[place] Finger to nose intact Unable to assess gait given fall risk Not oriented to time Abnormal joint position sense of toes - Skin Skin Exam: Dry, Intact, Warm Results - Vital Signs Recent Vital Signs: Last Vital Signs Temp 97.6 F 12/03/18 08:00 Pulse 69 12/03/18 09:00 Resp 22 12/03/18 09:00 BP 132/63 12/03/18 09:24 Pulse Ox 98 12/03/18 09:00 - Labs Result Diagrams: 12/03/18 06:49 12/03/18 05:51 Labs: Laboratory Results - last 24 hr 12/02/18 12/02/18 12/02/18 18:31 20:10 20:10 WBC 9.3 RBC 3.72 L Hgb 11.0 L Hct 34.7 L MCV 93.1 D MCH 29.6 MCHC 31.8 L RDW 16.7 H Plt Count 220 MPV 9.2 Neut % (Auto) 77.4 H Lymph % (Auto) 12.9 L Fajardo % (Auto) 7.8 Eos % (Auto) 1.2 Baso % (Auto) 0.7 Neut # (Auto) 7.2 H Lymph # (Auto) 1.2 Fajardo # (Auto) 0.7 Eos # (Auto) 0.1 Baso # (Auto) 0.1 APTT Sodium 140 Potassium 3.5 L Chloride 103 Carbon Dioxide 25 Anion Gap 16 BUN 51 H Creatinine 2.4 H Est GFR ( Amer) 33 Est GFR (Non-Af Amer) 27 POC Glucose (mg/dL) 88 Random Glucose 80 D Hemoglobin A1c Calcium 8.6 Magnesium 1.7 Total Bilirubin 1.4 H AST 71 H D ALT 20 L D Alkaline Phosphatase 99 Ammonia Total Creatine Kinase 914 H Troponin I 0.0780 Total Protein 6.7 Albumin 3.7 Globulin 3.0 Albumin/Globulin Ratio 1.2 Triglycerides Cholesterol LDL Cholesterol Direct HDL Cholesterol TSH 3rd Generation 3.51 Alcohol, Quantitative < 10 12/02/18 12/02/18 12/03/18 20:10 20:10 05:51 WBC RBC Hgb Hct MCV MCH MCHC RDW Plt Count MPV Neut % (Auto) Lymph % (Auto) Fajardo % (Auto) Eos % (Auto) Baso % (Auto) Neut # (Auto) Lymph # (Auto) Fajardo # (Auto) Eos # (Auto) Baso # (Auto) APTT 32 Sodium 138 Potassium 3.5 L Chloride 106 Carbon Dioxide 18 L Anion Gap 19 BUN 51 H Creatinine 2.1 H Est GFR ( Amer) 38 Est GFR (Non-Af Amer) 31 POC Glucose (mg/dL) Random Glucose 62 L D Hemoglobin A1c Calcium 8.0 L Magnesium Total Bilirubin AST ALT Alkaline Phosphatase Ammonia < 9 L Total Creatine Kinase Troponin I Total Protein Albumin Globulin Albumin/Globulin Ratio Triglycerides 95 Cholesterol 141 LDL Cholesterol Direct 95 HDL Cholesterol 41 TSH 3rd Generation Alcohol, Quantitative 12/03/18 12/03/18 05:53 06:49 WBC 9.2 RBC 3.38 L Hgb 10.1 L Hct 31.2 L MCV 92.4 MCH 30.0 MCHC 32.5 L RDW 16.3 H Plt Count 174 MPV 9.1 Neut % (Auto) 70.8 Lymph % (Auto) 16.7 L Fajardo % (Auto) 7.2 Eos % (Auto) 4.2 H Baso % (Auto) 1.1 Neut # (Auto) 6.5 Lymph # (Auto) 1.5 Fajardo # (Auto) 0.7 Eos # (Auto) 0.4 Baso # (Auto) 0.1 APTT Sodium Potassium Chloride Carbon Dioxide Anion Gap BUN Creatinine Est GFR ( Amer) Est GFR (Non-Af Amer) POC Glucose (mg/dL) Random Glucose Hemoglobin A1c 4.9 Calcium Magnesium Total Bilirubin AST ALT Alkaline Phosphatase Ammonia Total Creatine Kinase Troponin I Total Protein Albumin Globulin Albumin/Globulin Ratio Triglycerides Cholesterol LDL Cholesterol Direct HDL Cholesterol TSH 3rd Generation Alcohol, Quantitative Assessment & Plan - Assessment and Plan (Free Text) Assessment: 68 year old male with history of Atrial fibrillation on Eliquis who presented for generalized weakness, found to have right thalamic bleed on CT. Plan: Right thalamic bleed with extension in right lateral ventricle 12/02/18 CT head: Centered in the right thalamus with apparent extension to the right lateral ventricle there is a 4.3 x 2.1 x 3.0 centimeter focal area of acute hemorrhage. There is surrounding edema as well as local mass-effect. Apparent midline shift to the left measuring approximately 4 millimeters. Further evaluation with MRI/MRA would be helpful if clinically indicated. 12/02/18 CT angio head/neck: There is occlusion of the proximal left common carotid artery carotid carotid artery.. Complete occlusion of the right internal carotid artery. High-grade stenosis of the right vertebral artery with small caliber hypoplastic appearing left vertebral artery. There is intra cer ebral flow into the anterior middle cerebral arteries via the [id number] provided by the both vertebral arteries. No evidence of large aneurysm nor vascular malformation. Repeat 12/03/18 CT head: HEMORRHAGE: Redemonstrated is a elliptical shaped on hematoma in the right thalamus which measures approximately 3.5 x 1.8 x 3.2 cm.. This hematoma surrounded by a demarcating rim of low-attenuation edema and or necrotic brain tissue. The hemorrhage and surrounding attendant edema exert adjacent mass effect with compression of the right lateral ventricle and slight shift of the septum pellucidum from right to left approximately 7 mm. Hemorrhage is also decompressed into the right frontal horn and to a lesser degree mid body of the right lateral ventricle.. Small amount of hemorrhage is also seen layering in the dependent portion of both occipital horns. There is a moderate-sized hemorrhage within the right thalamus surrounded by a rim of low-attenuation edema. Hemorrhage and edema exert adjacent mass effect with compression of the right lateral ventricle and mild shift of the septum pellucidum from right to left. Hemorrhage has decompressed into the ventricular system as above. Mild chronic white matter ischemic changes with brainstem and suspected bilat eral basal nuclei ischemic changes. Moderate generalized volume loss. Continue to hold Bringrs Lumbar MRI without contrast ordered Case discussed with Dr. Dixon Rubio, PGY1
--- NOTE | 2018-12-03 13:56 | CP.CCUPN ---
<Rohan Harris - Last Filed: 12/03/18 18:14> CCU Objective - Vital Signs / Intake & Output Vital Signs (Last 4 hours): Vital Signs Temp Pulse Resp BP Pulse Ox 12/03/18 16:00 97.4 F L 65 17 96 12/03/18 15:39 76 17 111/51 L 95 12/03/18 14:39 54 L 17 124/60 Intake and Output (Last 8hrs): Intake & Output 12/03/18 12/03/18 12/03/18 06:59 14:59 22:59 Intake Total 450 550 150 Output Total 100 Balance 450 450 150 Weight 153 lb 12.8 oz Intake: Intake, IV Amount 450 550 150 Right Antecubital 450 550 150 Output: Urine 100 Urine, Voided 100 Other: Voiding Method Urinal # Voids Urine, Voided 0 1 # Bowel Movements 0 - Medications Active Medications: Active Medications Generic Name Dose Route Start Last Admin Trade Name Freq PRN Reason Stop Dose Admin Albuterol/Ipratropium 3 ml 12/02/18 23:59 Duoneb 3 Mg/0.5 Mg (3 Ml) Ud INH RQ6 PRN Shortness of Breath Sodium Chloride 1,000 mls @ 75 mls/hr 12/03/18 11:15 12/03/18 18:13 Sodium Chloride 0.9% IV 75 mls/hr .[id number] CADY Administration Morphine Sulfate 1 mg 12/03/18 18:11 Morphine IV 12/03/18 18:12 ONCE ONE Pantoprazole Sodium 40 mg 12/03/18 10:00 12/03/18 09:56 Protonix Inj IVP 40 mg DAILY CADY Administration - Patient Studies Lab Studies: Lab Studies 12/03/18 12/03/18 12/03/18 Range/Units 14:46 14:46 06:49 WBC 9.2 (4.8-10.8) K/uL RBC 3.38 L (4.40-5.90) Mil/uL Hgb 10.1 L (12.0-18.0) g/dL Hct 31.2 L (35.0-51.0) % MCV 92.4 (80.0-94.0) fL MCH 30.0 (27.0-31.0) pg MCHC 32.5 L (33.0-37.0) g/dL RDW 16.3 H (11.5-14.5) % Plt Count 174 (130-400) K/uL MPV 9.1 (7.2-11.7) fL Neut % (Auto) 70.8 (50.0-75.0) % Lymph % (Auto) 16.7 L (20.0-40.0) % Nolan % (Auto) 7.2 (0.0-10.0) % Eos % (Auto) 4.2 H (0.0-4.0) % Baso % (Auto) 1.1 (0.0-2.0) % Neut # (Auto) 6.5 (1.8-7.0) K/uL Lymph # (Auto) 1.5 (1.0-4.3) K/uL Nolan # (Auto) 0.7 (0.0-0.8) K/uL Eos # (Auto) 0.4 (0.0-0.7) K/uL Baso # (Auto) 0.1 (0.0-0.2) K/uL APTT (21-34) SECONDS Sodium (132-148) mmol/L Potassium (3.6-5.2) mmol/L Chloride (98-107) mmol/L Carbon Dioxide (22-30) mmol/L Anion Gap (10-20) BUN (9-20) mg/dL Creatinine (0.8-1.5) mg/dL Est GFR ( Amer) Est GFR (Non-Af Amer) POC Glucose (mg/dL) (65-110) mg/dL Random Glucose (75-110) mg/dL Hemoglobin A1c (4.2-6.5) % Calcium (8.6-10.4) mg/dl Magnesium (1.6-2.3) mg/dL Total Bilirubin (0.2-1.3) mg/dL AST (17-59) U/L ALT (21-72) U/L Alkaline Phosphatase (38-126) U/L Ammonia (9-33) umol/L Total Creatine Kinase (55-170) U/L Troponin I (0.00-0.120) ng/mL Total Protein (6.3-8.3) g/dL Albumin (3.5-5.0) g/dL Globulin (2.2-3.9) gm/dL Albumin/Globulin Ratio (1.0-2.1) Triglycerides (0-149) mg/dL Cholesterol (0-199) mg/dL LDL Cholesterol Direct (0-129) mg/dL HDL Cholesterol (30-70) mg/dL TSH 3rd Generation (0.46-4.68) mIU/L Urine Color Yellow (YELLOW) Urine Clarity Hazy (Clear) Urine pH 5.0 (5.0-8.0) Ur Specific [place] 1.043 H (1.003-1.030) Urine Protein Negative (NEGATIVE) mg/dL Urine Glucose (UA) Normal (Normal) mg/dL Urine Ketones 1+ H (NEGATIVE) mg/dL Urine Blood Negative (NEGATIVE) Urine Nitrate Negative (NEGATIVE) Urine Bilirubin Negative (NEGATIVE) Urine Urobilinogen Normal (0.2-1.0) mg/dL Ur Leukocyte Esterase 3+ H (Negative) [place]/uL Urine WBC (Auto) 55 H (0-5) /hpf Urine RBC (Auto) 7 H (0-3) /hpf Ur Squamous Epith Cells 3 (0-5) /hpf Urine Bacteria Rare (<OCC) Urine Opiates Screen Positive H (NEGATIVE) Urine Methadone Screen Negative (NEGATIVE) Ur Barbiturates Screen Negative (NEGATIVE) Ur Phencyclidine Scrn Negative (NEGATIVE) Ur Amphetamines Screen Negative (NEGATIVE) U Benzodiazepines Scrn Negative (NEGATIVE) U Oth Cocaine Metabols Negative (NEGATIVE) U Cannabinoids Screen Negative (NEGATIVE) Alcohol, Quantitative (0-10) mg/dl 12/03/18 12/03/18 12/02/18 Range/Units 05:53 05:51 20:10 WBC (4.8-10.8) K/uL RBC (4.40-5.90) Mil/uL Hgb (12.0-18.0) g/dL Hct (35.0-51.0) % MCV (80.0-94.0) fL MCH (27.0-31.0) pg MCHC (33.0-37.0) g/dL RDW (11.5-14.5) % Plt Count (130-400) K/uL MPV (7.2-11.7) fL Neut % (Auto) (50.0-75.0) % Lymph % (Auto) (20.0-40.0) % Nolan % (Auto) (0.0-10.0) % Eos % (Auto) (0.0-4.0) % Baso % (Auto) (0.0-2.0) % Neut # (Auto) (1.8-7.0) K/uL Lymph # (Auto) (1.0-4.3) K/uL Nolan # (Auto) (0.0-0.8) K/uL Eos # (Auto) (0.0-0.7) K/uL Baso # (Auto) (0.0-0.2) K/uL APTT (21-34) SECONDS Sodium 138 (132-148) mmol/L Potassium 3.5 L (3.6-5.2) mmol/L Chloride 106 (98-107) mmol/L Carbon Dioxide 18 L (22-30) mmol/L Anion Gap 19 (10-20) BUN 51 H (9-20) mg/dL Creatinine 2.1 H (0.8-1.5) mg/dL Est GFR ( Amer) 38 Est GFR (Non-Af Amer) 31 POC Glucose (mg/dL) (65-110) mg/dL Random Glucose 62 L D (75-110) mg/dL Hemoglobin A1c 4.9 (4.2-6.5) % Calcium 8.0 L (8.6-10.4) mg/dl Magnesium (1.6-2.3) mg/dL Total Bilirubin (0.2-1.3) mg/dL AST (17-59) U/L ALT (21-72) U/L Alkaline Phosphatase (38-126) U/L Ammonia < 9 L (9-33) umol/L Total Creatine Kinase (55-170) U/L Troponin I (0.00-0.120) ng/mL Total Protein (6.3-8.3) g/dL Albumin (3.5-5.0) g/dL Globulin (2.2-3.9) gm/dL Albumin/Globulin Ratio (1.0-2.1) Triglycerides 95 (0-149) mg/dL Cholesterol 141 (0-199) mg/dL LDL Cholesterol Direct 95 (0-129) mg/dL HDL Cholesterol 41 (30-70) mg/dL TSH 3rd Generation (0.46-4.68) mIU/L Urine Color (YELLOW) Urine Clarity (Clear) Urine pH (5.0-8.0) Ur Specific [place] (1.003-1.030) Urine Protein (NEGATIVE) mg/dL Urine Glucose (UA) (Normal) mg/dL Urine Ketones (NEGATIVE) mg/dL Urine Blood (NEGATIVE) Urine Nitrate (NEGATIVE) Urine Bilirubin (NEGATIVE) Urine Urobilinogen (0.2-1.0) mg/dL Ur Leukocyte Esterase (Negative) [place]/uL Urine WBC (Auto) (0-5) /hpf Urine RBC (Auto) (0-3) /hpf Ur Squamous Epith Cells (0-5) /hpf Urine Bacteria (<OCC) Urine Opiates Screen (NEGATIVE) Urine Methadone Screen (NEGATIVE) Ur Barbiturates Screen (NEGATIVE) Ur Phencyclidine Scrn (NEGATIVE) Ur Amphetamines Screen (NEGATIVE) U Benzodiazepines Scrn (NEGATIVE) U Oth Cocaine Metabols (NEGATIVE) U Cannabinoids Screen (NEGATIVE) Alcohol, Quantitative (0-10) mg/dl 12/02/18 12/02/18 12/02/18 Range/Units 20:10 20:10 20:10 WBC 9.3 (4.8-10.8) K/uL RBC 3.72 L (4.40-5.90) Mil/uL Hgb 11.0 L (12.0-18.0) g/dL Hct 34.7 L (35.0-51.0) % MCV 93.1 D (80.0-94.0) fL MCH 29.6 (27.0-31.0) pg MCHC 31.8 L (33.0-37.0) g/dL RDW 16.7 H (11.5-14.5) % Plt Count 220 (130-400) K/uL MPV 9.2 (7.2-11.7) fL Neut % (Auto) 77.4 H (50.0-75.0) % Lymph % (Auto) 12.9 L (20.0-40.0) % Nolan % (Auto) 7.8 (0.0-10.0) % Eos % (Auto) 1.2 (0.0-4.0) % Baso % (Auto) 0.7 (0.0-2.0) % Neut # (Auto) 7.2 H (1.8-7.0) K/uL Lymph # (Auto) 1.2 (1.0-4.3) K/uL Nolan # (Auto) 0.7 (0.0-0.8) K/uL Eos # (Auto) 0.1 (0.0-0.7) K/uL Baso # (Auto) 0.1 (0.0-0.2) K/uL APTT 32 (21-34) SECONDS Sodium 140 (132-148) mmol/L Potassium 3.5 L (3.6-5.2) mmol/L Chloride 103 (98-107) mmol/L Carbon Dioxide 25 (22-30) mmol/L Anion Gap 16 (10-20) BUN 51 H (9-20) mg/dL Creatinine 2.4 H (0.8-1.5) mg/dL Est GFR ( Amer) 33 Est GFR (Non-Af Amer) 27 POC Glucose (mg/dL) (65-110) mg/dL Random Glucose 80 D (75-110) mg/dL Hemoglobin A1c (4.2-6.5) % Calcium 8.6 (8.6-10.4) mg/dl Magnesium 1.7 (1.6-2.3) mg/dL Total Bilirubin 1.4 H (0.2-1.3) mg/dL AST 71 H D (17-59) U/L ALT 20 L D (21-72) U/L Alkaline Phosphatase 99 (38-126) U/L Ammonia (9-33) umol/L Total Creatine Kinase 914 H (55-170) U/L Troponin I 0.0780 (0.00-0.120) ng/mL Total Protein 6.7 (6.3-8.3) g/dL Albumin 3.7 (3.5-5.0) g/dL Globulin 3.0 (2.2-3.9) gm/dL Albumin/Globulin Ratio 1.2 (1.0-2.1) Triglycerides (0-149) mg/dL Cholesterol (0-199) mg/dL LDL Cholesterol Direct (0-129) mg/dL HDL Cholesterol (30-70) mg/dL TSH 3rd Generation 3.51 (0.46-4.68) mIU/L Urine Color (YELLOW) Urine Clarity (Clear) Urine pH (5.0-8.0) Ur Specific [place] (1.003-1.030) Urine Protein (NEGATIVE) mg/dL Urine Glucose (UA) (Normal) mg/dL Urine Ketones (NEGATIVE) mg/dL Urine Blood (NEGATIVE) Urine Nitrate (NEGATIVE) Urine Bilirubin (NEGATIVE) Urine Urobilinogen (0.2-1.0) mg/dL Ur Leukocyte Esterase (Negative) [place]/uL Urine WBC (Auto) (0-5) /hpf Urine RBC (Auto) (0-3) /hpf Ur Squamous Epith Cells (0-5) /hpf Urine Bacteria (<OCC) Urine Opiates Screen (NEGATIVE) Urine Methadone Screen (NEGATIVE) Ur Barbiturates Screen (NEGATIVE) Ur Phencyclidine Scrn (NEGATIVE) Ur Amphetamines Screen (NEGATIVE) U Benzodiazepines Scrn (NEGATIVE) U Oth Cocaine Metabols (NEGATIVE) U Cannabinoids Screen (NEGATIVE) Alcohol, Quantitative < 10 (0-10) mg/dl 12/02/18 Range/Units 18:31 WBC (4.8-10.8) K/uL RBC (4.40-5.90) Mil/uL Hgb (12.0-18.0) g/dL Hct (35.0-51.0) % MCV (80.0-94.0) fL MCH (27.0-31.0) pg MCHC (33.0-37.0) g/dL RDW (11.5-14.5) % Plt Count (130-400) K/uL MPV (7.2-11.7) fL Neut % (Auto) (50.0-75.0) % Lymph % (Auto) (20.0-40.0) % Nolan % (Auto) (0.0-10.0) % Eos % (Auto) (0.0-4.0) % Baso % (Auto) (0.0-2.0) % Neut # (Auto) (1.8-7.0) K/uL Lymph # (Auto) (1.0-4.3) K/uL Nolan # (Auto) (0.0-0.8) K/uL Eos # (Auto) (0.0-0.7) K/uL Baso # (Auto) (0.0-0.2) K/uL APTT (21-34) SECONDS Sodium (132-148) mmol/L Potassium (3.6-5.2) mmol/L Chloride (98-107) mmol/L Carbon Dioxide (22-30) mmol/L Anion Gap (10-20) BUN (9-20) mg/dL Creatinine (0.8-1.5) mg/dL Est GFR ( Amer) Est GFR (Non-Af Amer) POC Glucose (mg/dL) 88 (65-110) mg/dL Random Glucose (75-110) mg/dL Hemoglobin A1c (4.2-6.5) % Calcium (8.6-10.4) mg/dl Magnesium (1.6-2.3) mg/dL Total Bilirubin (0.2-1.3) mg/dL AST (17-59) U/L ALT (21-72) U/L Alkaline Phosphatase (38-126) U/L Ammonia (9-33) umol/L Total Creatine Kinase (55-170) U/L Troponin I (0.00-0.120) ng/mL Total Protein (6.3-8.3) g/dL Albumin (3.5-5.0) g/dL Globulin (2.2-3.9) gm/dL Albumin/Globulin Ratio (1.0-2.1) Triglycerides (0-149) mg/dL Cholesterol (0-199) mg/dL LDL Cholesterol Direct (0-129) mg/dL HDL Cholesterol (30-70) mg/dL TSH 3rd Generation (0.46-4.68) mIU/L Urine Color (YELLOW) Urine Clarity (Clear) Urine pH (5.0-8.0) Ur Specific [place] (1.003-1.030) Urine Protein (NEGATIVE) mg/dL Urine Glucose (UA) (Normal) mg/dL Urine Ketones (NEGATIVE) mg/dL Urine Blood (NEGATIVE) Urine Nitrate (NEGATIVE) Urine Bilirubin (NEGATIVE) Urine Urobilinogen (0.2-1.0) mg/dL Ur Leukocyte Esterase (Negative) [place]/uL Urine WBC (Auto) (0-5) /hpf Urine RBC (Auto) (0-3) /hpf Ur Squamous Epith Cells (0-5) /hpf Urine Bacteria (<OCC) Urine Opiates Screen (NEGATIVE) Urine Methadone Screen (NEGATIVE) Ur Barbiturates Screen (NEGATIVE) Ur Phencyclidine Scrn (NEGATIVE) Ur Amphetamines Screen (NEGATIVE) U Benzodiazepines Scrn (NEGATIVE) U Oth Cocaine Metabols (NEGATIVE) U Cannabinoids Screen (NEGATIVE) Alcohol, Quantitative (0-10) mg/dl Laboratory Results - last 24 hr 12/02/18 12/02/18 12/02/18 18:31 20:10 20:10 WBC 9.3 RBC 3.72 L Hgb 11.0 L Hct 34.7 L MCV 93.1 D MCH 29.6 MCHC 31.8 L RDW 16.7 H Plt Count 220 MPV 9.2 Neut % (Auto) 77.4 H Lymph % (Auto) 12.9 L Nolan % (Auto) 7.8 Eos % (Auto) 1.2 Baso % (Auto) 0.7 Neut # (Auto) 7.2 H Lymph # (Auto) 1.2 Nolan # (Auto) 0.7 Eos # (Auto) 0.1 Baso # (Auto) 0.1 APTT Sodium 140 Potassium 3.5 L Chloride 103 Carbon Dioxide 25 Anion Gap 16 BUN 51 H Creatinine 2.4 H Est GFR ( Amer) 33 Est GFR (Non-Af Amer) 27 POC Glucose (mg/dL) 88 Random Glucose 80 D Hemoglobin A1c Calcium 8.6 Magnesium 1.7 Total Bilirubin 1.4 H AST 71 H D ALT 20 L D Alkaline Phosphatase 99 Ammonia Total Creatine Kinase 914 H Troponin I 0.0780 Total Protein 6.7 Albumin 3.7 Globulin 3.0 Albumin/Globulin Ratio 1.2 Triglycerides Cholesterol LDL Cholesterol Direct HDL Cholesterol TSH 3rd Generation 3.51 Urine Color Urine Clarity Urine pH Ur Specific [place] Urine Protein Urine Glucose (UA) Urine Ketones Urine Blood Urine Nitrate Urine Bilirubin Urine Urobilinogen Ur Leukocyte Esterase Urine WBC (Auto) Urine RBC (Auto) Ur Squamous Epith Cells Urine Bacteria Urine Opiates Screen Urine Methadone Screen Ur Barbiturates Screen Ur Phencyclidine Scrn Ur Amphetamines Screen U Benzodiazepines Scrn U Oth Cocaine Metabols U Cannabinoids Screen Alcohol, Quantitative < 10 12/02/18 12/02/18 12/03/18 20:10 20:10 05:51 WBC RBC Hgb Hct MCV MCH MCHC RDW Plt Count MPV Neut % (Auto) Lymph % (Auto) Nolan % (Auto) Eos % (Auto) Baso % (Auto) Neut # (Auto) Lymph # (Auto) Nolan # (Auto) Eos # (Auto) Baso # (Auto) APTT 32 Sodium 138 Potassium 3.5 L Chloride 106 Carbon Dioxide 18 L Anion Gap 19 BUN 51 H Creatinine 2.1 H Est GFR ( Amer) 38 Est GFR (Non-Af Amer) 31 POC Glucose (mg/dL) Random Glucose 62 L D Hemoglobin A1c Calcium 8.0 L Magnesium Total Bilirubin AST ALT Alkaline Phosphatase Ammonia < 9 L Total Creatine Kinase Troponin I Total Protein Albumin Globulin Albumin/Globulin Ratio Triglycerides 95 Cholesterol 141 LDL Cholesterol Direct 95 HDL Cholesterol 41 TSH 3rd Generation Urine Color Urine Clarity Urine pH Ur Specific [place] Urine Protein Urine Glucose (UA) Urine Ketones Urine Blood Urine Nitrate Urine Bilirubin Urine Urobilinogen Ur Leukocyte Esterase Urine WBC (Auto) Urine RBC (Auto) Ur Squamous Epith Cells Urine Bacteria Urine Opiates Screen Urine Methadone Screen Ur Barbiturates Screen Ur Phencyclidine Scrn Ur Amphetamines Screen U Benzodiazepines Scrn U Oth Cocaine Metabols U Cannabinoids Screen Alcohol, Quantitative 12/03/18 12/03/18 12/03/18 05:53 06:49 14:46 WBC 9.2 RBC 3.38 L Hgb 10.1 L Hct 31.2 L MCV 92.4 MCH 30.0 MCHC 32.5 L RDW 16.3 H Plt Count 174 MPV 9.1 Neut % (Auto) 70.8 Lymph % (Auto) 16.7 L Nolan % (Auto) 7.2 Eos % (Auto) 4.2 H Baso % (Auto) 1.1 Neut # (Auto) 6.5 Lymph # (Auto) 1.5 Nolan # (Auto) 0.7 Eos # (Auto) 0.4 Baso # (Auto) 0.1 APTT Sodium Potassium Chloride Carbon Dioxide Anion Gap BUN Creatinine Est GFR ( Amer) Est GFR (Non-Af Amer) POC Glucose (mg/dL) Random Glucose Hemoglobin A1c 4.9 Calcium Magnesium Total Bilirubin AST ALT Alkaline Phosphatase Ammonia Total Creatine Kinase Troponin I Total Protein Albumin Globulin Albumin/Globulin Ratio Triglycerides Cholesterol LDL Cholesterol Direct HDL Cholesterol TSH 3rd Generation Urine Color Yellow Urine Clarity Hazy Urine pH 5.0 Ur Specific [place] 1.043 H Urine Protein Negative Urine Glucose (UA) Normal Urine Ketones 1+ H Urine Blood Negative Urine Nitrate Negative Urine Bilirubin Negative Urine Urobilinogen Normal Ur Leukocyte Esterase 3+ H Urine WBC (Auto) 55 H Urine RBC (Auto) 7 H Ur Squamous Epith Cells 3 Urine Bacteria Rare Urine Opiates Screen Urine Methadone Screen Ur Barbiturates Screen Ur Phencyclidine Scrn Ur Amphetamines Screen U Benzodiazepines Scrn U Oth Cocaine Metabols U Cannabinoids Screen Alcohol, Quantitative 12/03/18 14:46 WBC RBC Hgb Hct MCV MCH MCHC RDW Plt Count MPV Neut % (Auto) Lymph % (Auto) Nolan % (Auto) Eos % (Auto) Baso % (Auto) Neut # (Auto) Lymph # (Auto) Nolan # (Auto) Eos # (Auto) Baso # (Auto) APTT Sodium Potassium Chloride Carbon Dioxide Anion Gap BUN Creatinine Est GFR ( Amer) Est GFR (Non-Af Amer) POC Glucose (mg/dL) Random Glucose Hemoglobin A1c Calcium Magnesium Total Bilirubin AST ALT Alkaline Phosphatase Ammonia Total Creatine Kinase Troponin I Total Protein Albumin Globulin Albumin/Globulin Ratio Triglycerides Cholesterol LDL Cholesterol Direct HDL Cholesterol TSH 3rd Generation Urine Color Urine Clarity Urine pH Ur Specific [place] Urine Protein Urine Glucose (UA) Urine Ketones Urine Blood Urine Nitrate Urine Bilirubin Urine Urobilinogen Ur Leukocyte Esterase Urine WBC (Auto) Urine RBC (Auto) Ur Squamous Epith Cells Urine Bacteria Urine Opiates Screen Positive H Urine Methadone Screen Negative Ur Barbiturates Screen Negative Ur Phencyclidine Scrn Negative Ur Amphetamines Screen Negative U Benzodiazepines Scrn Negative U Oth Cocaine Metabols Negative U Cannabinoids Screen Negative Alcohol, Quantitative Radiology Impressions: Radiology Impressions Chest X-Ray 12/02/18 19:48 IMPRESSION: Cardiomegaly. Right hilar prominence. Hyperinflation. Head CT 12/02/18 19:48 IMPRESSION: Centered in the right thalamus with apparent extension to the right lateral ventricle there is a 4.3 x 2.1 x 3.0 centimeter focal area of acute hemorrhage. There is surrounding edema as well as local mass-effect. Apparent midline shift to the left measuring approximately 4 millimeters. Further evaluation with MRI/MRA would be helpful if clinically indicated. A preliminary report was generated at 9:07 p.m. on 12/02/[address] Isaiah Hernandez from [facility]. Head/Neck CTA 12/02/18 21:49 IMPRESSION: There is occlusion of the proximal left common carotid artery carotid carotid artery.. Complete occlusion of the right internal carotid artery. High-grade stenosis of the right vertebral artery with small caliber hypoplastic appearing left vertebral artery. There is intra cerebral flow into the anterior middle cerebral arteries via the [id number] provided by the both vertebral arteries. No evidence of large aneurysm nor vascular malformation. Head CT 12/03/18 08:00 IMPRESSION: There is a moderate-sized hemorrhage within the right thalamus surrounded by a rim of low-attenuation edema. Hemorrhage and edema exert adjacent mass effect with compression of the right lateral ventricle and mild shift of the septum pellucidum from right to left. Hemorrhage has decompressed into the ventricular system as above. Mild chronic white matter ischemic changes with brainstem and suspected bilateral basal nuclei ischemic changes. Moderate generalized volume loss. EKG/Cardiology Studies: Cardiology / EKG Studies 12/02/18 19:48 ELECTROCARDIOGRAM Stat Comment: Mode Of Transportation: BED Reason For Exam: AMS 12/03/18 18:35 EKG [ELECTROCARDIOGRAM] Stat Comment: Mode Of Transportation: BED Reason For Exam: cp Critical Care Progress Note - Nutrition Nutrition: Nutrition Category Date Time Status Soft [Dysphagia/Modified Consistency Diet] [DIET] Diets 12/03/18 Lunch Active Attending/Attestation - Attestation I have personally seen and examined this patient.: Yes I have fully participated in the care of the patient.: Yes I have reviewed all pertinent clinical information: Yes Notes (Text): 12/03/18 18:14 Patient seen and examined in the intensive care unit. Case discussed with housestaff in the morning rounds. Repeat CAT scan of the head noted With thalamic bleed Anticoagulation on hold Seen by neurology Patient is awake and responsive Continue ICU observation <Tab Jurado - Last Filed: 12/03/18 18:26> CCU Subjective - Physician Review Subjective (Free Text): PGY-1 ICU progress note for Dr Harris Patient is seen and examined at bedside. Patient is sleeping at time of encounter, states has no complaints, had pain in left lef from previous fall. Denies fever, chills, chest pain, sob. bowel movements normal, no urinary complaints Critical Care Time Spent (in minutes): 35 CCU Objective - Vital Signs / Intake & Output Intake and Output (Last 8hrs): Intake & Output 12/02/18 12/03/18 12/03/18 22:59 06:59 14:59 Intake Total 450 225 Balance 450 225 Weight 140 lb 153 lb 12.8 oz Intake: Intake, IV Amount 450 225 Right Antecubital 450 225 Other: Voiding Method Urinal # Voids Urine, Voided 0 # Bowel Movements 0 - Physical Exam Head: Positive for: Atraumatic, Normocephalic Pupils: Positive for: PERRL Extroacular Muscles: Positive for: EOMI Neck: Positive for: Normal Range of Motion Respiratory/Chest: Positive for: Clear to Auscultation Cardiovascular: Positive for: Normal S1, S2, Irregular Rhythm Abdomen: Positive for: Normal Bowel Sounds. Negative for: Tenderness Upper Extremity: Positive for: Normal Inspection Lower Extremity: Positive for: Other (dry blood on left lower extremity, wrapped in bandage, stain with dry blood ) Neurological: Positive for: CN II-XII Intact, Other Psychiatric: Positive for: Alert. Negative for: Oriented x 3 - Medications Active Medications: Active Medications Generic Name Dose Route Start Last Admin Trade Name Freq PRN Reason Stop Dose Admin Albuterol/Ipratropium 3 ml 12/02/18 23:59 Duoneb 3 Mg/0.5 Mg (3 Ml) Ud INH RQ6 PRN Shortness of Breath Sodium Chloride 1,000 mls @ 75 mls/hr 12/03/18 11:15 Sodium Chloride 0.9% IV .[id number] [facility] Pantoprazole Sodium 40 mg 12/03/18 10:00 12/03/18 09:56 Protonix Inj IVP 40 mg DAILY [facility] Administration - Patient Studies Lab Studies: Lab Studies 12/03/18 12/03/18 12/03/18 Range/Units 06:49 05:53 05:51 WBC 9.2 (4.8-10.8) K/uL RBC 3.38 L (4.40-5.90) Mil/uL Hgb 10.1 L (12.0-18.0) g/dL Hct 31.2 L (35.0-51.0) % MCV 92.4 (80.0-94.0) fL MCH 30.0 (27.0-31.0) pg MCHC 32.5 L (33.0-37.0) g/dL RDW 16.3 H (11.5-14.5) % Plt Count 174 (130-400) K/uL MPV 9.1 (7.2-11.7) fL Neut % (Auto) 70.8 (50.0-75.0) % Lymph % (Auto) 16.7 L (20.0-40.0) % Nolan % (Auto) 7.2 (0.0-10.0) % Eos % (Auto) 4.2 H (0.0-4.0) % Baso % (Auto) 1.1 (0.0-2.0) % Neut # (Auto) 6.5 (1.8-7.0) K/uL Lymph # (Auto) 1.5 (1.0-4.3) K/uL Nolan # (Auto) 0.7 (0.0-0.8) K/uL Eos # (Auto) 0.4 (0.0-0.7) K/uL Baso # (Auto) 0.1 (0.0-0.2) K/uL APTT (21-34) SECONDS Sodium 138 (132-148) mmol/L Potassium 3.5 L (3.6-5.2) mmol/L Chloride 106 (98-107) mmol/L Carbon Dioxide 18 L (22-30) mmol/L Anion Gap 19 (10-20) BUN 51 H (9-20) mg/dL Creatinine 2.1 H (0.8-1.5) mg/dL Est GFR ( Amer) 38 Est GFR (Non-Af Amer) 31 POC Glucose (mg/dL) (65-110) mg/dL Random Glucose 62 L D (75-110) mg/dL Hemoglobin A1c 4.9 (4.2-6.5) % Calcium 8.0 L (8.6-10.4) mg/dl Magnesium (1.6-2.3) mg/dL Total Bilirubin (0.2-1.3) mg/dL AST (17-59) U/L ALT (21-72) U/L Alkaline Phosphatase (38-126) U/L Ammonia (9-33) umol/L Total Creatine Kinase (55-170) U/L Troponin I (0.00-0.120) ng/mL Total Protein (6.3-8.3) g/dL Albumin (3.5-5.0) g/dL Globulin (2.2-3.9) gm/dL Albumin/Globulin Ratio (1.0-2.1) Triglycerides 95 (0-149) mg/dL Cholesterol 141 (0-199) mg/dL LDL Cholesterol Direct 95 (0-129) mg/dL HDL Cholesterol 41 (30-70) mg/dL TSH 3rd Generation (0.46-4.68) mIU/L Alcohol, Quantitative (0-10) mg/dl 12/02/18 12/02/18 12/02/18 Range/Units 20:10 20:10 20:10 WBC (4.8-10.8) K/uL RBC (4.40-5.90) Mil/uL Hgb (12.0-18.0) g/dL Hct (35.0-51.0) % MCV (80.0-94.0) fL MCH (27.0-31.0) pg MCHC (33.0-37.0) g/dL RDW (11.5-14.5) % Plt Count (130-400) K/uL MPV (7.2-11.7) fL Neut % (Auto) (50.0-75.0) % Lymph % (Auto) (20.0-40.0) % Nolan % (Auto) (0.0-10.0) % Eos % (Auto) (0.0-4.0) % Baso % (Auto) (0.0-2.0) % Neut # (Auto) (1.8-7.0) K/uL Lymph # (Auto) (1.0-4.3) K/uL Nolan # (Auto) (0.0-0.8) K/uL Eos # (Auto) (0.0-0.7) K/uL Baso # (Auto) (0.0-0.2) K/uL APTT 32 (21-34) SECONDS Sodium 140 (132-148) mmol/L Potassium 3.5 L (3.6-5.2) mmol/L Chloride 103 (98-107) mmol/L Carbon Dioxide 25 (22-30) mmol/L Anion Gap 16 (10-20) BUN 51 H (9-20) mg/dL Creatinine 2.4 H (0.8-1.5) mg/dL Est GFR ( Amer) 33 Est GFR (Non-Af Amer) 27 POC Glucose (mg/dL) (65-110) mg/dL Random Glucose 80 D (75-110) mg/dL Hemoglobin A1c (4.2-6.5) % Calcium 8.6 (8.6-10.4) mg/dl Magnesium 1.7 (1.6-2.3) mg/dL Total Bilirubin 1.4 H (0.2-1.3) mg/dL AST 71 H D (17-59) U/L ALT 20 L D (21-72) U/L Alkaline Phosphatase 99 (38-126) U/L Ammonia < 9 L (9-33) umol/L Total Creatine Kinase 914 H (55-170) U/L Troponin I 0.0780 (0.00-0.120) ng/mL Total Protein 6.7 (6.3-8.3) g/dL Albumin 3.7 (3.5-5.0) g/dL Globulin 3.0 (2.2-3.9) gm/dL Albumin/Globulin Ratio 1.2 (1.0-2.1) Triglycerides (0-149) mg/dL Cholesterol (0-199) mg/dL LDL Cholesterol Direct (0-129) mg/dL HDL Cholesterol (30-70) mg/dL TSH 3rd Generation 3.51 (0.46-4.68) mIU/L Alcohol, Quantitative < 10 (0-10) mg/dl 12/02/18 12/02/18 Range/Units 20:10 18:31 WBC 9.3 (4.8-10.8) K/uL RBC 3.72 L (4.40-5.90) Mil/uL Hgb 11.0 L (12.0-18.0) g/dL Hct 34.7 L (35.0-51.0) % MCV 93.1 D (80.0-94.0) fL MCH 29.6 (27.0-31.0) pg MCHC 31.8 L (33.0-37.0) g/dL RDW 16.7 H (11.5-14.5) % Plt Count 220 (130-400) K/uL MPV 9.2 (7.2-11.7) fL Neut % (Auto) 77.4 H (50.0-75.0) % Lymph % (Auto) 12.9 L (20.0-40.0) % Nolan % (Auto) 7.8 (0.0-10.0) % Eos % (Auto) 1.2 (0.0-4.0) % Baso % (Auto) 0.7 (0.0-2.0) % Neut # (Auto) 7.2 H (1.8-7.0) K/uL Lymph # (Auto) 1.2 (1.0-4.3) K/uL Nolan # (Auto) 0.7 (0.0-0.8) K/uL Eos # (Auto) 0.1 (0.0-0.7) K/uL Baso # (Auto) 0.1 (0.0-0.2) K/uL APTT (21-34) SECONDS Sodium (132-148) mmol/L Potassium (3.6-5.2) mmol/L Chloride (98-107) mmol/L Carbon Dioxide (22-30) mmol/L Anion Gap (10-20) BUN (9-20) mg/dL Creatinine (0.8-1.5) mg/dL Est GFR ( Amer) Est GFR (Non-Af Amer) POC Glucose (mg/dL) 88 (65-110) mg/dL Random Glucose (75-110) mg/dL Hemoglobin A1c (4.2-6.5) % Calcium (8.6-10.4) mg/dl Magnesium (1.6-2.3) mg/dL Total Bilirubin (0.2-1.3) mg/dL AST (17-59) U/L ALT (21-72) U/L Alkaline Phosphatase (38-126) U/L Ammonia (9-33) umol/L Total Creatine Kinase (55-170) U/L Troponin I (0.00-0.120) ng/mL Total Protein (6.3-8.3) g/dL Albumin (3.5-5.0) g/dL Globulin (2.2-3.9) gm/dL Albumin/Globulin Ratio (1.0-2.1) Triglycerides (0-149) mg/dL Cholesterol (0-199) mg/dL LDL Cholesterol Direct (0-129) mg/dL HDL Cholesterol (30-70) mg/dL TSH 3rd Generation (0.46-4.68) mIU/L Alcohol, Quantitative (0-10) mg/dl Laboratory Results - last 24 hr 12/02/18 12/02/18 12/02/18 18:31 20:10 20:10 WBC 9.3 RBC 3.72 L Hgb 11.0 L Hct 34.7 L MCV 93.1 D MCH 29.6 MCHC 31.8 L RDW 16.7 H Plt Count 220 MPV 9.2 Neut % (Auto) 77.4 H Lymph % (Auto) 12.9 L [place] % (Auto) 7.8 Eos % (Auto) 1.2 Baso % (Auto) 0.7 Neut # (Auto) 7.2 H Lymph # (Auto) 1.2 [place] # (Auto) 0.7 Eos # (Auto) 0.1 Baso # (Auto) 0.1 APTT Sodium 140 Potassium 3.5 L Chloride 103 Carbon Dioxide 25 Anion Gap 16 BUN 51 H Creatinine 2.4 H Est GFR ( Amer) 33 Est GFR (Non-Af Amer) 27 POC Glucose (mg/dL) 88 Random Glucose 80 D Hemoglobin A1c Calcium 8.6 Magnesium 1.7 Total Bilirubin 1.4 H AST 71 H D ALT 20 L D Alkaline Phosphatase 99 Ammonia Total Creatine Kinase 914 H Troponin I 0.0780 Total Protein 6.7 Albumin 3.7 Globulin 3.0 Albumin/Globulin Ratio 1.2 Triglycerides Cholesterol LDL Cholesterol Direct HDL Cholesterol TSH 3rd Generation 3.51 Alcohol, Quantitative < 10 12/02/18 12/02/18 12/03/18 20:10 20:10 05:51 WBC RBC Hgb Hct MCV MCH MCHC RDW Plt Count MPV Neut % (Auto) Lymph % (Auto) [place] % (Auto) Eos % (Auto) Baso % (Auto) Neut # (Auto) Lymph # (Auto) [place] # (Auto) Eos # (Auto) Baso # (Auto) APTT 32 Sodium 138 Potassium 3.5 L Chloride 106 Carbon Dioxide 18 L Anion Gap 19 BUN 51 H Creatinine 2.1 H Est GFR ( Amer) 38 Est GFR (Non-Af Amer) 31 POC Glucose (mg/dL) Random Glucose 62 L D Hemoglobin A1c Calcium 8.0 L Magnesium Total Bilirubin AST ALT Alkaline Phosphatase Ammonia < 9 L Total Creatine Kinase Troponin I Total Protein Albumin Globulin Albumin/Globulin Ratio Triglycerides 95 Cholesterol 141 LDL Cholesterol Direct 95 HDL Cholesterol 41 TSH 3rd Generation Alcohol, Quantitative 12/03/18 12/03/18 05:53 06:49 WBC 9.2 RBC 3.38 L Hgb 10.1 L Hct 31.2 L MCV 92.4 MCH 30.0 MCHC 32.5 L RDW 16.3 H Plt Count 174 MPV 9.1 Neut % (Auto) 70.8 Lymph % (Auto) 16.7 L [place] % (Auto) 7.2 Eos % (Auto) 4.2 H Baso % (Auto) 1.1 Neut # (Auto) 6.5 Lymph # (Auto) 1.5 [place] # (Auto) 0.7 Eos # (Auto) 0.4 Baso # (Auto) 0.1 APTT Sodium Potassium Chloride Carbon Dioxide Anion Gap BUN Creatinine Est GFR ( Amer) Est GFR (Non-Af Amer) POC Glucose (mg/dL) Random Glucose Hemoglobin A1c 4.9 Calcium Magnesium Total Bilirubin AST ALT Alkaline Phosphatase Ammonia Total Creatine Kinase Troponin I Total Protein Albumin Globulin Albumin/Globulin Ratio Triglycerides Cholesterol LDL Cholesterol Direct HDL Cholesterol TSH 3rd Generation Alcohol, Quantitative Radiology Impressions: Radiology Impressions Chest X-Ray 12/02/18 19:48 IMPRESSION: Cardiomegaly. Right hilar prominence. Hyperinflation. Head CT 12/02/18 19:48 IMPRESSION: Centered in the right thalamus with apparent extension to the right lateral ventricle there is a 4.3 x 2.1 x 3.0 centimeter focal area of acute hemorrhage. There is surrounding edema as well as local mass-effect. Apparent midline shift to the left measuring approximately 4 millimeters. Further evaluation with MRI/MRA would be helpful if clinically indicated. A preliminary report was generated at 9:07 p.m. on 12/02/[address] Isaiah Hernandez from [email or web address]. Head/Neck CTA 12/02/18 21:49 IMPRESSION: There is occlusion of the proximal left common carotid artery carotid carotid artery.. Complete occlusion of the right internal carotid artery. High-grade stenosis of the right vertebral artery with small caliber hypoplastic appearing left vertebral artery. There is intra cerebral flow into the anterior middle cerebral arteries via the [id number] provided by the both vertebral arteries. No evidence of large aneurysm nor vascular malformation. Head CT 12/03/18 08:00 IMPRESSION: There is a moderate-sized hemorrhage within the right thalamus surrounded by a rim of low-attenuation edema. Hemorrhage and edema exert adjacent mass effect with compression of the right lateral ventricle and mild shift of the septum pellucidum from right to left. Hemorrhage has decompressed into the ventricular system as above. Mild chronic white matter ischemic changes with brainstem and suspected bilateral basal nuclei ischemic changes. Moderate generalized volume loss. EKG/Cardiology Studies: Cardiology / EKG Studies 12/02/18 19:48 ELECTROCARDIOGRAM Stat Comment: Mode Of Transportation: BED Reason For Exam: AMS 12/03/18 18:35 EKG [ELECTROCARDIOGRAM] Stat Comment: Mode Of Transportation: BED Reason For Exam: cp Critical Care Progress Note - Nutrition Nutrition: Nutrition Category Date Time Status NPO Diet [DIET] Diets 12/02/18 Dinner Active Assessment/Plan - Assessment and Plan (Free Text) Plan: 68 years old male with hx of Chronic A Fib on Eliquis bid, Alcohol abuse and CKD. He comes to the ED because of worsening of his weakness today, unsteady gait and frequent falls. CT on 12/02 shows right thalamic bleed, neuro and neurosx consult, on fluids, off anticoag/antiplatelet treatment. Neuro CT head - right thalamic bleed CTA of head and neck - occlusion of the proximal left common carotid artery carotid carotid artery. Complete occlusion of the right internal carotid artery. High-grade stenosis of the right vertebral artery with small caliber hypoplastic appearing left vertebral artery CT head repeat - right thalamic bleed still visible - There is a moderate-sized hemorrhage within the right thalamus surrounded by a rim of low-attenuation edema. Hemorrhage has decompressed into the ventricular system Dr Metcalf - neurology consult - f/u recs Dr Mondragon - neurosx consult - f/u recs Cardiac hx of chronic afib - continue to hold eliquis - monitor Pulm hx of COPD - no acute issues at this time continue to monitor GI swallow eval - mechanical, nectar diet - soft diet protonix Nephro Acute on chronic kidney disease IV fluids NS @ 75 cc K 3.5 - repleted with KCL follow up electrolytes - replete as needed Heme/Onc hx of anemia of chronic disease H/H this am - continue to follow up ID afebrile, no white count PPx DVT: c/i for SCDs due to PVD and leg stents, C/i VTE due to cerebral bleed GI: Protonix PT/OT Plan discussed with Dr Steven Jurado, PGY-1 - Date & Time Date: 12/03/18 Time: 16:23
[2018-12-03 15:09] LABS: SQUAMOUS EPITHIAL 3 /hpf (0-5); URINE BACTERIA RARE (<OCC); URINE BILIRUBIN NEGATIVE (NEGATIVE); URINE BLOOD NEGATIVE (NEGATIVE); URINE CLARITY Hazy (Clear); URINE COLOR Yellow (YELLOW); URINE GLUCOSE (UA) NORMAL (Normal); URINE LEUKOCYTE ESTERASE 3+ Leu/uL (Negative); URINE PROTEIN NEGATIVE (NEGATIVE); URINE UROBILINOGEN NORMAL mg/dL (0.2-1.0)
[2018-12-03 15:36] LABS: BARBITURATES, UR NEGATIVE (NEGATIVE); BENZODIAZEPINES, UR NEGATIVE (NEGATIVE); PHENCYCLIDINE, UR NEGATIVE (NEGATIVE)
[2018-12-03 15:58] LABS: OPIATES, UR POSITIVE (NEGATIVE)
[2018-12-03] MEDS ORDERED: Morphine 4 MG/ML VIAL IVP ONE (16:51)
[2018-12-03] MEDS ORDERED: Morphine 4 MG/ML VIAL IV ONE (18:11)
[2018-12-03] MEDS: Sodium Chloride 0.9% 1,000 ML IV SCH (18:13)
--- NOTE | 2018-12-03 20:31 | CARD ---
APPROVED REPORT Date of service: 12/02/2018 EKG Measurement Heart [id number] <Conclusion> Atrial fibrillation with rapid ventricular response Left axis deviation Low voltage QRS Right bundle branch block Inferior infarct, age undetermined Anteroseptal infarct, age undetermined Abnormal ECG
[2018-12-04] MEDS: Sodium Chloride 0.9% 1,000 ML IV SCH ×2 (04:56→18:26)
[2018-12-04 06:21] LABS: BASO # 0.1 K/uL (0.0-0.2); BASO % 0.9 % (0.0-2.0); EOS # 0.4 K/uL (0.0-0.7); HEMOGLOBIN 9.7 g/dL (12.0-18.0); LYMPH # 1.2 K/uL (1.0-4.3); LYMPH % 17.7 % (20.0-40.0); MEAN CELL VOLUME 93.2 fL (80.0-94.0); MEAN CORPUSCULAR HEMOGLOBIN 30.3 pg (27.0-31.0); MEAN CORPUSCULAR HGB CONC 32.5 g/dL (33.0-37.0); MEAN PLATELET VOLUME 9.8 fL (7.2-11.7); MONO # 0.7 K/uL (0.0-0.8); MONO % 9.7 % (0.0-10.0); NEUT # 4.6 K/uL (1.8-7.0); NEUT % 65.7 % (50.0-75.0); RBC 3.19 Mil/uL (4.40-5.90); RED CELL DISTRIBUTION WIDTH 16.4 % (11.5-14.5); WHITE BLOOD COUNT 7.1 K/uL (4.8-10.8)
[2018-12-04 06:36] LABS: ALBUMIN 2.8 g/dL (3.5-5.0); CALCIUM 7.5 mg/dl (8.6-10.4)
--- NOTE | 2018-12-04 13:01 | CP.PCM.PN ---
<Bhavna Rubio - Last Filed: 12/04/18 16:19> Subjective - Date & Time of Evaluation Date of Evaluation: 12/04/18 Time of Evaluation: 13:00 - Subjective Subjective: Progress note Patient seen and examined at bedside. He is awake in bed and continues to states that he feels too weak to walk. He denies headache, lightheadedness, dizziness, numbness, tingling, vision or hearing changes. Objective - Vital Signs/Intake and Output Vital Signs (last 24 hours): Temp Pulse Resp BP Pulse Ox 98.2 F 78 23 106/70 82 L 12/04/18 12:00 12/04/18 12:00 12/04/18 12:00 12/04/18 10:47 12/04/18 11:00 Intake and Output: 12/04/18 12/04/18 06:59 18:59 Intake Total 1140 1050 Output Total 525 Balance 1140 525 - Medications Medications: Current Medications Albuterol/Ipratropium (Duoneb 3 Mg/0.5 Mg (3 Ml) Ud) 3 ml INH RQ6 PRN PRN Reason: Shortness of Breath Sodium Chloride (Sodium Chloride 0.9%) 1,000 mls @ 75 mls/hr IV .[id number] CADY Last Admin: 12/04/18 04:56 Dose: Not Given Aztreonam 2 gm/ Sodium (Chloride) 100 mls @ 200 mls/hr IVPB Q8H CADY; Protocol Pantoprazole Sodium (Protonix Inj) 40 mg IVP DAILY CADY Last Admin: 12/04/18 09:13 Dose: 40 mg - Labs Labs: 12/04/18 06:09 12/04/18 06:00 APTT 32 SECONDS (21-34) 12/02/18 20:10 - Constitutional Appears: No Acute Distress - Head Exam Head Exam: ATRAUMATIC, NORMOCEPHALIC - Eye Exam Eye Exam: EOMI, PERRL - ENT Exam ENT Exam: Mucous Membranes Dry - Respiratory Exam Respiratory Exam: NORMAL BREATHING PATTERN - Cardiovascular Exam Cardiovascular Exam: Irregular Rhythm, +S1, +S2 - Extremities Exam Additional comments: Skin changes to lower extremities bilaterally - Neurological Exam Neurological Exam: Alert, Awake Additional comments: Oriented to person only, not to place or time Difficulty with finger to nose on left side, able to complete on right Left arm and hand weaker than right arm and hand. Able to move legs bilaterally, however patient too weak to keep legs elevated. Assessment and Plan - Assessment and Plan (Free Text) Plan: Right thalamic bleed with extension in right lateral ventricle 12/02/18 CT head: Centered in the right thalamus with apparent extension to the right lateral ventricle there is a 4.3 x 2.1 x 3.0 centimeter focal area of acute hemorrhage. There is surrounding edema as well as local mass-effect. Apparent midline shift to the left measuring approximately 4 millimeters. Further evaluation with MRI/MRA would be helpful if clinically indicated. 12/02/18 CT angio head/neck: There is occlusion of the proximal left common carotid artery carotid carotid artery.. Complete occlusion of the right internal carotid artery. High-grade stenosis of the right vertebral artery with small caliber hypoplastic appearing left vertebral artery. There is intra cerebral flow into the anterior middle cerebral arteries via the [id number] provided by the both vertebral arteries. No evidence of large aneurysm nor vascular malformation. Repeat 12/03/18 CT head: HEMORRHAGE: Redemonstrated is a elliptical shaped on hematoma in the right thalamus which measures approximately 3.5 x 1.8 x 3.2 cm.. This hematoma surrounded by a demarcating rim of low-attenuation edema and or necrotic brain tissue. The hemorrhage and surrounding attendant edema exert adjacent mass effect with compr ession of the right lateral ventricle and slight shift of the septum pellucidum from right to left approximately 7 mm. Hemorrhage is also decompressed into the right frontal horn and to a lesser degree mid body of the right lateral ventricle.. Small amount of hemorrhage is also seen layering in the dependent portion of both occipital horns. There is a moderate-sized hemorrhage within the right thalamus surrounded by a rim of low-attenuation edema. Hemorrhage and edema exert adjacent mass effect with compression of the right lateral ventricle and mild shift of the septum pellucidum from right to left. Hemorrhage has decompressed into the ventricular system as above. Mild chronic white matter ischemic changes with brainstem and suspected bilateral basal nuclei ischemic changes. Moderate generalized volume loss. Continue to hold [employer] Lumbar MRI without contrast No definite disc herniation or severe stenosis appreciated. Straightened lumbar curvature is noted with multilevel disc bulging and facet arthropathy affecting the mid to inferior lumbar spine, seen worst at L4-5 where mild central canal stenosis results. Overall pattern only slightly worsened compared to prior CT lumbar spine 02/09/2016. Case discussed with Dr. Brandon Rubio, PGY1 <Brady Taylor - Last Filed: 12/16/18 14:45> Objective - Vital Signs/Intake and Output Vital Signs (last 24 hours): Temp Pulse Resp BP Pulse Ox 98.6 F 66 18 162/70 H 96 12/12/18 07:50 12/12/18 07:50 12/12/18 07:50 12/12/18 07:50 12/12/18 07:50 - Labs Labs: 12/11/18 14:09 12/11/18 14:09 APTT 32 SECONDS (21-34) 12/02/18 20:10 Attending/Attestation - Attestation I have personally seen and examined this patient.: Yes I have fully participated in the care of the patient.: Yes I have reviewed all pertinent clinical information, including history, physical exam and plan: Yes Notes (Text): I agree with the assessment and plan. Will continue to hold Eliquis for hemorrhage.
--- NOTE | 2018-12-04 13:11 | CP.PCM.CON ---
History of Present Illness - History of Present Illness History of Present Illness: is a 68 year old male with a PmHx significant for atrial fibrillation on eliquis, ETOH abuse,and smoking greater than 40 years. The pt presented to the ED with complaint of generalized weakness, frequent falls, and unsteady gait. The patient denied loss of consciuosness but complained of short term memory loss. Patient denies dizziness, difficulty with speech, headache,vision loss or disturbance. Patient lives alone and states that he drinks beer daily but unable to give an amount per day. He states that he smokes but isnn't sure if it is 10-15 cig/day. Patient cannot recall taking any medication at home each day. Review of Systems - Review of Systems Systems not reviewed;Unavailable: Altered Mental Status - Constitutional Constitutional: Frequent Falls - Cardiovascular Cardiovascular: Irregular Heart Rhythm Additional comments: atrial fibrillation - Respiratory Additional comments: lungs clear to ausc bilaterally - Integumentary Integumentary: Wounds Additional comments: multiple abrasions via bilateral lower extremities - Neurological Neurological: Frequent Falls, Lack of Coordination, Memory Loss, Sensory Deficit Past Patient History - Tetanus Immunizations Tetanus Immunization: Refused - Past Medical History & Family History Past Medical History?: Yes - Past Social History Smoking Status: Heavy Smoker > 10 Cigarettes Daily Chewing Tobacco Use: No Cigar Use: No Alcohol: > 2 Drinks/Day Drugs: Denies, Inhalants Home Situation {Lives}: Alone - CARDIAC Hx Atrial Fibrillation: Yes Hx Hypertension: Yes - NEUROLOGICAL Hx Neurological Disorder: No Hx Paralysis: No Hx Vertigo: No - HEENT Hx Deafness: (mild decrease) - RENAL Hx Chronic Kidney Disease: No - ENDOCRINE/METABOLIC Hx Endocrine Disorders: No - HEMATOLOGICAL/ONCOLOGICAL Hx Blood Disorders: No Hx Blood Transfusions: Yes Hx Blood Transfusion Reaction: No - INTEGUMENTARY Hx Dermatological Problems: Yes Other/Comment: both lower ext w/ pinkish discoloration and mult.abraisions - MUSCULOSKELETAL/RHEUMATOLOGICAL Hx Fractures: Yes ("I broke my Left foot 1988") - GASTROINTESTINAL Hx Gastrointestinal Disorders: No - GENITOURINARY/GYNECOLOGICAL Hx Genitourinary Disorders: No - PSYCHIATRIC Hx Substance Use: No - SURGICAL HISTORY Hx Tonsillectomy: Yes (At 3 years old) - ANESTHESIA Hx Anesthesia: Yes Hx Anesthesia Reactions: No Hx Malignant Hyperthermia: No Meds Allergies/Adverse Reactions: Allergies Allergy/AdvReac Type Severity Reaction Status Date / Time Penicillins Allergy Verified 02/07/16 17:02 - Medications Medications: Current Medications Albuterol/Ipratropium (Duoneb 3 Mg/0.5 Mg (3 Ml) Ud) 3 ml INH RQ6 PRN PRN Reason: Shortness of Breath Sodium Chloride (Sodium Chloride 0.9%) 1,000 mls @ 75 mls/hr IV .[id number] CADY Last Admin: 12/04/18 04:56 Dose: Not Given Aztreonam 2 gm/ Sodium (Chloride) 100 mls @ 200 mls/hr IVPB Q8H CADY; Protocol Pantoprazole Sodium (Protonix Inj) 40 mg IVP DAILY [facility] Last Admin: 12/04/18 09:13 Dose: 40 mg Physical Exam - Constitutional Appears: No Acute Distress - Head Exam Head Exam: ATRAUMATIC - Eye Exam Eye Exam: EOMI, PERRL Pupil Exam: NORMAL ACCOMODATION - Neck Exam Neck exam: Positive for: Full Rom - Respiratory Exam Respiratory Exam: Clear to Auscultation Bilateral - Cardiovascular Exam Cardiovascular Exam: Irregular Rhythm - Extremities Exam Extremities exam: Positive for: tenderness - Expanded Lower Extremities Exam Right Lower Leg Exam: abrasion, ecchymosis - Neurological Exam Neurological exam: Alert - Expanded Neurological Exam Expanded Patient oriented to: person Speech: Fluid Speech Cranial nerves: EOM's Intact: Normal Ataxia: Yes (sensory) Cerebellar Function: Finger to Nose: Abnormal Left Upper motor neuron: Pronator Drift: Abnormal Left (appears sensory ataxia) Sensory exam: Lower Extremity Light Touch: Normal, Lower Extremity Temperature: Normal, Upper Extremity Light Touch: Normal, Upper Extremity Temperature: Normal Neuro motor strength exam: Left Upper Extremity: 5, Right Upper Extremity: 5, Left Lower Extremity: 4 (may be r/t discomfort in leg), Right Lower Extremity: 5 Coma Scale Eye Opening: SPONTANEOUS Coma Scale Motor Response: OBEYS COMMANDS - Skin Skin Exam: Abrasion Results - Vital Signs Recent Vital Signs: Last Vital Signs Temp 98.2 F 12/04/18 12:00 Pulse 78 12/04/18 12:00 Resp 23 12/04/18 12:00 BP 106/70 12/04/18 10:47 Pulse Ox 82 L 12/04/18 11:00 - Labs Result Diagrams: 12/04/18 06:09 12/04/18 06:00 Labs: Laboratory Results - last 24 hr 12/03/18 12/03/18 12/04/18 14:46 14:46 06:00 WBC RBC Hgb Hct MCV MCH MCHC RDW Plt Count MPV Neut % (Auto) Lymph % (Auto) [place] % (Auto) Eos % (Auto) Baso % (Auto) Neut # (Auto) Lymph # (Auto) [place] # (Auto) Eos # (Auto) Baso # (Auto) Sodium 138 Potassium 3.9 Chloride 111 H Carbon Dioxide 23 Anion Gap 8 L BUN 51 H Creatinine 1.9 H Est GFR ( Amer) 43 Est GFR (Non-Af Amer) 35 Random Glucose 89 D Calcium 7.5 L Phosphorus 3.7 Magnesium 1.6 Total Bilirubin 0.8 AST 50 ALT 16 L Alkaline Phosphatase 63 Total Protein 5.7 L Albumin 2.8 L D Globulin 2.9 Albumin/Globulin Ratio 1.0 Urine Color Yellow Urine Clarity Hazy Urine pH 5.0 Ur Specific [place] 1.043 H Urine Protein Negative Urine Glucose (UA) Normal Urine Ketones 1+ H Urine Blood Negative Urine Nitrate Negative Urine Bilirubin Negative Urine Urobilinogen Normal Ur Leukocyte Esterase 3+ H Urine WBC (Auto) 55 H Urine RBC (Auto) 7 H Ur Squamous Epith Cells 3 Urine Bacteria Rare Urine Opiates Screen Positive H Urine Methadone Screen Negative Ur Barbiturates Screen Negative Ur Phencyclidine Scrn Negative Ur Amphetamines Screen Negative U Benzodiazepines Scrn Negative U Oth Cocaine Metabols Negative U Cannabinoids Screen Negative 12/04/18 06:09 WBC 7.1 RBC 3.19 L Hgb 9.7 L Hct 29.8 L MCV 93.2 MCH 30.3 MCHC 32.5 L RDW 16.4 H Plt Count 188 MPV 9.8 Neut % (Auto) 65.7 Lymph % (Auto) 17.7 L [place] % (Auto) 9.7 Eos % (Auto) 6.0 H Baso % (Auto) 0.9 Neut # (Auto) 4.6 Lymph # (Auto) 1.2 [place] # (Auto) 0.7 Eos # (Auto) 0.4 Baso # (Auto) 0.1 Sodium Potassium Chloride Carbon Dioxide Anion Gap BUN Creatinine Est GFR ( Amer) Est GFR (Non-Af Amer) Random Glucose Calcium Phosphorus Magnesium Total Bilirubin AST ALT Alkaline Phosphatase Total Protein Albumin Globulin Albumin/Globulin Ratio Urine Color Urine Clarity Urine pH Ur Specific [place] Urine Protein Urine Glucose (UA) Urine Ketones Urine Blood Urine Nitrate Urine Bilirubin Urine Urobilinogen Ur Leukocyte Esterase Urine WBC (Auto) Urine RBC (Auto) Ur Squamous Epith Cells Urine Bacteria Urine Opiates Screen Urine Methadone Screen Ur Barbiturates Screen Ur Phencyclidine Scrn Ur Amphetamines Screen U Benzodiazepines Scrn U Oth Cocaine Metabols U Cannabinoids Screen Assessment & Plan - Assessment and Plan (Free Text) Assessment: [facility] Dr.Farkas Dr.Arcot Dr.Turkell-Parrella Dr.Liff Hurley Consolmagno MSNA,AGNP-BC, INDUSTRIAL ACCOUNTANT Lamont Patel is a 68 year old male who presented to the ED with complaints of generalized weakness, frequent falls,unsteady gait. Pt is oriented to person onl y. Appears to be a poor historian about his medical history with short term memeory loss. CT head revealed hemorrhage within right thalamus; CTA head/neck occlusion of proximal left common carotid artery, complete occlusion right internal carotid artery, complete occlusion of right internal carotid artery, high-grade stenosis of right vertebral artery. Upon neuro assessment dysmetria noted via left UE and drift from left toward right upper extremity believe to be related to sensory ataxia. Plan: PLAN: 1-suggest continue neuro checks per ICU protocol 2-please notify Interventional Neuro with any neuro changes 3-continue supportive care 4-If I can be of further assistance please contact [facility] [phone] Critical Care consultation 45 minutes spent for assessment and plan - Date & Time Date: 12/04/18 Time: 13:20
--- NOTE | 2018-12-04 14:01 | CARD ---
APPROVED REPORT Date of service: 12/03/2018 EKG Measurement Heart [id number] <Conclusion> Atrial fibrillation with premature ventricular or aberrantly conducted complexes Left axis deviation Right bundle branch block Inferior infarct, age undetermined Anteroseptal infarct, age undetermined Abnormal ECG baseline artifacts.please repeat
--- NOTE | 2018-12-04 14:12 | MRI ---
Date of service: 12/04/2018 PROCEDURE: MR LUMBAR SPINE WITHOUT CONTRAST HISTORY: unsteady gait, chronic falls COMPARISON: Lumbar spine CT without contrast 02/09/2016. TECHNIQUE: Multiecho multiplanar sequences were performed through the lumbar spine without the use of intravenous contrast. FINDINGS: Straightened lumbar curvature. Vertebral body heights are preserved. Marrow signal unremarkable. Diffuse disc desiccation is identified with mid inferior levels most affected. Conus medullaris unremarkable at the level of L1. Paraspinal soft tissues are unremarkable. T12-L1: No disc herniation, spinal canal stenosis or neural foraminal narrowing. L1-2: No disc herniation, spinal canal stenosis or neural foraminal narrowing. L2-3: No disc herniation, spinal canal stenosis or neural foraminal narrowing. L3-4: Motion artifacts limit evaluation. No disc herniation identified. A circumferential disc bulge is identified with prominent facet joint degenerative change encroaching lateral recesses bilaterally. Mild right but borderline left neural foraminal stenosis appreciated based on asymmetric facet joint degeneration. L4-5: Motion artifacts limit evaluation. No disc herniation. Gross facet joint degenerative change and circumferential disc bulging combined to cause mild central canal stenosis. Borderline bilateral neural foraminal stenoses present. L5-S1: Motion artifacts limit evaluation. No disc herniation identified. Gross facet joint degenerative change and circumferential disc bulging combined to cause symmetric bilateral lateral recess stenoses without generalized central canal stenosis. Borderline right neural foraminal stenosis noted. Mild left neural foraminal stenosis present. OTHER FINDINGS: None. IMPRESSION: No definite disc herniation or severe stenosis appreciated. Straightened lumbar curvature is noted with multilevel disc bulging and facet arthropathy affecting the mid to inferior lumbar spine, seen worst at L4-5 where mild central canal stenosis results. Overall pattern only slightly worsened compared to prior CT lumbar spine 02/09/2016.
[2018-12-04] MEDS: Aztreonam 2 GM in Sodium Chloride 0.9% 100 ML IVPB SCH ×2 (14:35→20:34)
--- NOTE | 2018-12-04 21:06 | CP.PCM.HP ---
History of Present Illness - History of Present Illness History of Present Illness: Chief complaint: Frequent falls HPI: 68-year-old male brought in by ambulance because because of the frequent fall. He claims that he fell down frequently. Even the last admission 3 months ago patient had a fall. He was admitted with a cellulitis and sepsis at that time. In the emergency room patient was evaluated. He was alert awake oriented, but because of the fall patient had a CT scan of the head which was showing evidence of thalamic bleed, and needed hospitalization. In the emergency room patient was evaluated, and hospitalized to the intensive care unit. Patient was seen by, evaluated by neurosurgical intervention team. No intervention needed at this time. Patient was closely monitored in the ICU. Patient is now more awake. But he is confused. He denies any pain no nausea no vomiting. Past medical history: Peripheral vascular disease, atrial fibrillation, hypertension, chronic renal failure. Allergy penicillin, but able to tolerate cephalosporin as per ID. Surgical history: Patient has a surgical intervention to the right open wound in the right leg.History of fractures. Tonsillectomy in the past. Social history: Patient used to be a smoker in the past. More than 30 pack per year history. Patient currently lives by himself. Review of system: Patient has now mild headache. But he is very weak and tired looking. Hypothermia. Chills and fever noted. Coughing present. His c/o abdominal pain. Multiple extremities skin changes noted. Excoriation present. Old healed right leg ulcer On examination: Vital signs noted, bradycardia noted. Saturation is normal. On room air 100%. Patient is thin and emaciated. Patient also has a multiple skin excoriations in the both lower extremities, right upper and right left upper extremity. Patient has dried the blood in the right nostril and the gums noted. Patient also has a dark stools patient labs reviewed CAT scan of the head showing evidence of right thalamic bleed with the septum pellucidum septal prescription noted. Otherwise labs is nonspecific. Assessment and plan: 68-year-old male with a history of atrial fibrillation, history of PVD, hypertension, history of gout in the past. History of smoking, and possible COPD. Patient now admitted with the recurrent fall, now having thalamic bleed. Patient was recently hospitalized 3 months ago with a GI bleed. But because of the recurrent atrial flutter fibrillation he was placed on anticoagulation. But now the anticoagulate and will be held. We will closely monitor, neuro watch. DVT and GI prophylaxis mechanically. Overall prognosis is poor. Physical therapy. Fall precaution. [place] precautions. Aspiration precautions. Present on Admission - Present on Admission Any Indicators Present on Admission: No History of DVT/PE: No History of Uncontrolled Diabetes: No Urinary Catheter: No Decubitus Ulcer Present: No Past Patient History - Tetanus Immunizations Tetanus Immunization: Refused - Past Medical History & Family History Past Medical History?: Yes - Past Social History Smoking Status: Heavy Smoker > 10 Cigarettes Daily Chewing Tobacco Use: No Cigar Use: No Alcohol: > 2 Drinks/Day Drugs: Denies, Inhalants Home Situation {Lives}: Alone - CARDIAC Hx Atrial Fibrillation: Yes Hx Hypertension: Yes - PULMONARY Hx Chronic Obstructive Pulmonary Disease (COPD): Yes - NEUROLOGICAL Hx Neurological Disorder: No Hx Paralysis: No Hx Vertigo: No - HEENT Hx Deafness: (mild decrease) - RENAL Hx Chronic Kidney Disease: No - ENDOCRINE/METABOLIC Hx Endocrine Disorders: No - HEMATOLOGICAL/ONCOLOGICAL Hx Blood Disorders: No Hx Blood Transfusions: Yes Hx Blood Transfusion Reaction: No - INTEGUMENTARY Hx Dermatological Problems: Yes Other/Comment: both lower ext w/ pinkish discoloration and mult.abraisions - MUSCULOSKELETAL/RHEUMATOLOGICAL Hx Fractures: Yes ("I broke my Left foot 1988") - GASTROINTESTINAL Hx Gastrointestinal Disorders: No - GENITOURINARY/GYNECOLOGICAL Hx Genitourinary Disorders: No - PSYCHIATRIC Hx Substance Use: No - SURGICAL HISTORY Hx Tonsillectomy: Yes (At 3 years old) - ANESTHESIA Hx Anesthesia: Yes Hx Anesthesia Reactions: No Hx Malignant Hyperthermia: No Meds Allergies/Adverse Reactions: Allergies Allergy/AdvReac Type Severity Reaction Status Date / Time Penicillins Allergy Verified 02/07/16 17:02 Results - Vital Signs Recent Vital Signs: Last Vital Signs Temp 98.4 F 12/04/18 16:00 Pulse 71 12/04/18 19:00 Resp 21 12/04/18 19:00 BP 163/55 H 12/04/18 18:46 Pulse Ox 82 L 12/04/18 11:00 - Labs Result Diagrams: 12/04/18 06:09 12/04/18 06:00 Labs: Laboratory Results - last 24 hr 12/04/18 12/04/18 06:00 06:09 WBC 7.1 RBC 3.19 L Hgb 9.7 L Hct 29.8 L MCV 93.2 MCH 30.3 MCHC 32.5 L RDW 16.4 H Plt Count 188 MPV 9.8 Neut % (Auto) 65.7 Lymph % (Auto) 17.7 L [place] % (Auto) 9.7 Eos % (Auto) 6.0 H Baso % (Auto) 0.9 Neut # (Auto) 4.6 Lymph # (Auto) 1.2 [place] # (Auto) 0.7 Eos # (Auto) 0.4 Baso # (Auto) 0.1 Sodium 138 Potassium 3.9 Chloride 111 H Carbon Dioxide 23 Anion Gap 8 L BUN 51 H Creatinine 1.9 H Est GFR ( Amer) 43 Est GFR (Non-Af Amer) 35 Random Glucose 89 D Calcium 7.5 L Phosphorus 3.7 Magnesium 1.6 Total Bilirubin 0.8 AST 50 ALT 16 L Alkaline Phosphatase 63 Total Protein 5.7 L Albumin 2.8 L D Globulin 2.9 Albumin/Globulin Ratio 1.0
--- NOTE | 2018-12-04 21:12 | CP.PCM.PN ---
Subjective - Date & Time of Evaluation Date of Evaluation: 12/04/18 Time of Evaluation: 21:10 - Subjective Subjective: Patient of closely monitored in the ICU. Neurologically patient was seen by neurosurgical team. No aggressive surgical intervention needed at this time. Anticoagulation is on hold now Patient is awake and responding. No chest pain. Eating, cooperating at this time. Confusion at times noted Vital signs stable, except bradycardia. Patient has atrial flutter fibrillation Repeat CAT scan of the head showing evidence of persistent bradycardia, no worsening noted We will continue to follow the patient. Neuro watch. Cardiology evaluation. And will follow the patient Objective - Vital Signs/Intake and Output Vital Signs (last 24 hours): Temp Pulse Resp BP Pulse Ox 98.4 F 71 21 163/55 H 82 L 12/04/18 16:00 12/04/18 19:00 12/04/18 19:00 12/04/18 18:46 12/04/18 11:00 Intake and Output: 12/04/18 12/05/18 18:59 06:59 Intake Total 1765 75 Output Total 525 250 Balance 1240 -175 - Medications Medications: Current Medications Albuterol/Ipratropium (Duoneb 3 Mg/0.5 Mg (3 Ml) Ud) 3 ml INH RQ6 PRN PRN Reason: Shortness of Breath Sodium Chloride (Sodium Chloride 0.9%) 1,000 mls @ 75 mls/hr IV .[id number] [facility] Last Admin: 12/04/18 18:26 Dose: 75 mls/hr Aztreonam 2 gm/ Sodium (Chloride) 100 mls @ 200 mls/hr IVPB Q8H [facility]; Protocol Last Admin: 12/04/18 20:34 Dose: 200 mls/hr Pantoprazole Sodium (Protonix Inj) 40 mg IVP DAILY [facility] Last Admin: 12/04/18 09:13 Dose: 40 mg - Labs Labs: 12/04/18 06:09 12/04/18 06:00 APTT 32 SECONDS (21-34) 12/02/18 20:10
[2018-12-05] MEDS: Aztreonam 2 GM in Sodium Chloride 0.9% 100 ML IVPB SCH ×3 (03:43→20:03)
[2018-12-05 06:22] LABS: BASO % 0.6 % (0.0-2.0); EOS # 0.3 K/uL (0.0-0.7); EOS % 3.9 % (0.0-4.0); HEMOGLOBIN 11.4 g/dL (12.0-18.0); LYMPH # 1.5 K/uL (1.0-4.3); LYMPH % 23.4 % (20.0-40.0); MEAN CELL VOLUME 92.8 fL (80.0-94.0); MEAN CORPUSCULAR HEMOGLOBIN 29.9 pg (27.0-31.0); MEAN CORPUSCULAR HGB CONC 32.3 g/dL (33.0-37.0); MEAN PLATELET VOLUME 9.3 fL (7.2-11.7); MONO # 0.8 K/uL (0.0-0.8); MONO % 12.7 % (0.0-10.0); NEUT # 3.8 K/uL (1.8-7.0); NEUT % 59.4 % (50.0-75.0); NRBC % 0.1 % (0.0-2.0); RBC 3.8 Mil/uL (4.40-5.90); RED CELL DISTRIBUTION WIDTH 16.5 % (11.5-14.5); WHITE BLOOD COUNT 6.5 K/uL (4.8-10.8)
[2018-12-05 06:57] LABS: ALBUMIN 3.3 g/dL (3.5-5.0); CALCIUM 8.6 mg/dl (8.6-10.4)
--- NOTE | 2018-12-05 15:18 | CP.PCM.PN ---
<Bhavna Rubio - Last Filed: 12/05/18 15:32> Subjective - Date & Time of Evaluation Date of Evaluation: 12/05/18 Time of Evaluation: 15:18 - Subjective Subjective: Neurology Progress Note for Dr. Taylor Patient seen and examined at bedside. He is sitting up in chair. He denies headache, lightheadedness, dizziness, numbness, tingling, vision or hearing changes. Speech is garbled. Objective - Vital Signs/Intake and Output Vital Signs (last 24 hours): Temp Pulse Resp BP Pulse Ox 98.5 F 58 L 21 115/56 L 100 12/05/18 12:00 12/05/18 12:59 12/05/18 12:59 12/05/18 12:59 12/05/18 12:59 Intake and Output: 12/05/18 12/05/18 06:59 18:59 Intake Total 375 240 Output Total 250 Balance 125 240 - Medications Medications: Current Medications Albuterol/Ipratropium (Duoneb 3 Mg/0.5 Mg (3 Ml) Ud) 3 ml INH RQ6 PRN PRN Reason: Shortness of Breath Aztreonam 2 gm/ Sodium (Chloride) 100 mls @ 200 mls/hr IVPB Q8H [facility]; Protocol Last Admin: 12/05/18 12:56 Dose: 200 mls/hr Pantoprazole Sodium (Protonix Inj) 40 mg IVP DAILY [facility] Last Admin: 12/05/18 09:44 Dose: 40 mg - Labs Labs: 12/05/18 06:11 12/05/18 06:11 APTT 32 SECONDS (21-34) 12/02/18 20:10 - Constitutional Appears: No Acute Distress - Head Exam Head Exam: ATRAUMATIC, NORMOCEPHALIC - Eye Exam Eye Exam: EOMI, PERRL - ENT Exam ENT Exam: Mucous Membranes Dry - Respiratory Exam Respiratory Exam: NORMAL BREATHING PATTERN - Cardiovascular Exam Cardiovascular Exam: Irregular Rhythm, +S1, +S2 - GI/Abdominal Exam GI & Abdominal Exam: Soft, Normal Bowel Sounds - Extremities Exam Additional comments: Abrasions to left lower [place] - Neurological Exam Neurological Exam: Alert, Awake Additional comments: Oriented to person only, not to time Left arm and hand slightly weaker than right arm and hand Able to move legs bilaterally Speech garbled, intermittently confused. Assessment and Plan - Assessment and Plan (Free Text) Plan: Right thalamic bleed with extension in right lateral ventricle 12/02/18 CT head: Centered in the right thalamus with apparent extension to the right lateral ventricle there is a 4.3 x 2.1 x 3.0 centimeter focal area of acute hemorrhage. There is surrounding edema as well as local mass-effect. Apparent midline shift to the left measuring approximately 4 millimeters. Further evaluation with MRI/MRA would be helpful if clinically indicated. 12/02/18 CT angio head/neck: There is occlusion of the proximal left common carotid artery carotid carotid artery. Complete occlusion of the right internal carotid artery. High-grade stenosis of the right vertebral artery with small caliber hypoplastic appearing left vertebral artery. There is intra cerebral flow into the anterior middle cerebral arteries via the [id number] provided by the both vertebral arteries. No evidence of large aneurysm nor vascular malformation. Repeat 12/03/18 CT head: HEMORRHAGE: Redemonstrated is a elliptical shaped on hematoma in the right thalamus which measures approximately 3.5 x 1.8 x 3.2 cm.. This hematoma surrounded by a demarcating rim of low-attenuation edema and or necrotic brain tissue. The hemorrhage and surrounding attendant edema exert adjacent mass effect with compression of the right lateral ventricle and slight shift of the septum pellucidum from right to left approximately 7 mm. Hemorrhage is also decompressed into the right frontal horn and to a lesser degree mid body of the right lateral ventricle.. Small amount of hemorrhage is also seen layering in the dependent portion of both occipital horns. There is a moderate-sized hemorrhage within the right thalamus surrounded by a rim of low-attenuation edema. Hemorrhage and edema exert adjacent mass effect with compression of the right lateral ventricle and mild shift of the septum pellucidum from right to left. Hemorrhage has decompressed into the ventricular system as above. Mild chronic white matter ischemic changes with brainstem and suspected bilateral basal nuclei ischemic changes. Moderate generalized volume loss. Neurochecks Lumbar MRI without contrast No definite disc herniation or severe stenosis appreciated. Straightened lumbar curvature is noted with multilevel disc bulging and facet arthropathy affecting the mid to inferior lumbar spine, seen worst at L4-5 where mild central canal stenosis results. Overall pattern only slightly worsened compared to prior CT lumbar spine 02/09/2016. Continue to control blood pressure Recommend rehab Case discussed with Dr. Brandon Rubio, PGY1 <Brady Taylor - Last Filed: 12/09/18 02:04> Objective - Vital Signs/Intake and Output Vital Signs (last 24 hours): Temp Pulse Resp BP Pulse Ox 98.1 F 69 20 175/80 H 100 12/08/18 23:35 12/08/18 23:35 12/08/18 23:35 12/08/18 23:35 12/08/18 23:35 - Medications Medications: Current Medications Aztreonam 2 gm/ Sodium (Chloride) 100 mls @ 200 mls/hr IVPB Q8H [facility]; Protocol Last Admin: 12/08/18 21:19 Dose: 200 mls/hr Pantoprazole Sodium (Protonix Inj) 40 mg IVP DAILY [facility] Last Admin: 12/08/18 10:33 Dose: 40 mg - Labs Labs: 12/06/18 06:26 12/06/18 06:24 APTT 32 SECONDS (21-34) 12/02/18 20:10 Attending/Attestation - Attestation I have personally seen and examined this patient.: Yes I have fully participated in the care of the patient.: Yes I have reviewed all pertinent clinical information, including history, physical exam and plan: Yes Notes (Text): I agree with the assessment and plan. Continue management for ICU as outlined above.
--- NOTE | 2018-12-05 23:22 | CP.PCM.CON ---
History of Present Illness - History of Present Illness History of Present Illness: 68 M with hx of HTN, A Fib, hyperlipidemia, admitted for CVA and thalamic bleed Physical Examination - Constitutional Appears: No Acute Distress - Head Exam Head Exam: ATRAUMATIC, NORMOCEPHALIC - Eye Exam Eye Exam: EOMI, PERRL - ENT Exam ENT Exam: Mucous Membranes Dry - Respiratory Exam Respiratory Exam: NORMAL BREATHING PATTERN - Cardiovascular Exam Cardiovascular Exam: Irregular Rhythm, +S1, +S2 - GI/Abdominal Exam GI & Abdominal Exam: Soft, Normal Bowel Sounds - Extremities Exam Additional comments: Abrasions to left lower [place] - Neurological Exam Neurological Exam: Alert, Awake Additional comments: Oriented to person only, not to time Left arm and hand slightly weaker than right arm and hand Able to move legs bilaterally Speech garbled, intermittently confused. Past Patient History - Tetanus Immunizations Tetanus Immunization: Refused - Past Medical History & Family History Past Medical History?: Yes - Past Social History Smoking Status: Heavy Smoker > 10 Cigarettes Daily Chewing Tobacco Use: No Cigar Use: No Alcohol: > 2 Drinks/Day Drugs: Denies, Inhalants Home Situation {Lives}: Alone - CARDIAC Hx Atrial Fibrillation: Yes Hx Hypertension: Yes - PULMONARY Hx Chronic Obstructive Pulmonary Disease (COPD): Yes - NEUROLOGICAL Hx Neurological Disorder: No Hx Paralysis: No Hx Vertigo: No - HEENT Hx Deafness: (mild decrease) - RENAL Hx Chronic Kidney Disease: No - ENDOCRINE/METABOLIC Hx Endocrine Disorders: No - HEMATOLOGICAL/ONCOLOGICAL Hx Blood Disorders: No Hx Blood Transfusions: Yes Hx Blood Transfusion Reaction: No - INTEGUMENTARY Hx Dermatological Problems: Yes Other/Comment: both lower ext w/ pinkish discoloration and mult.abraisions - MUSCULOSKELETAL/RHEUMATOLOGICAL Hx Fractures: Yes ("I broke my Left foot 1988") - GASTROINTESTINAL Hx Gastrointestinal Disorders: No - GENITOURINARY/GYNECOLOGICAL Hx Genitourinary Disorders: No - PSYCHIATRIC Hx Substance Use: No - SURGICAL HISTORY Hx Tonsillectomy: Yes (At 3 years old) - ANESTHESIA Hx Anesthesia: Yes Hx Anesthesia Reactions: No Hx Malignant Hyperthermia: No Meds Allergies/Adverse Reactions: Allergies Allergy/AdvReac Type Severity Reaction Status Date / Time Penicillins Allergy Verified 02/07/16 17:02 - Medications Medications: Current Medications Albuterol/Ipratropium (Duoneb 3 Mg/0.5 Mg (3 Ml) Ud) 3 ml INH RQ6 PRN PRN Reason: Shortness of Breath Aztreonam 2 gm/ Sodium (Chloride) 100 mls @ 200 mls/hr IVPB Q8H [facility]; Protocol Last Admin: 12/05/18 20:03 Dose: 200 mls/hr Pantoprazole Sodium (Protonix Inj) 40 mg IVP DAILY [facility] Last Admin: 12/05/18 09:44 Dose: 40 mg Results - Vital Signs Recent Vital Signs: Last Vital Signs Temp 98.0 F 12/05/18 20:00 Pulse 57 L 12/05/18 22:00 Resp 21 12/05/18 22:00 BP 149/74 12/05/18 20:59 Pulse Ox 99 12/05/18 22:00 - Labs Result Diagrams: 12/06/18 06:26 12/06/18 06:24 Labs: Laboratory Results - last 24 hr 12/05/18 12/05/18 06:11 06:11 WBC 6.5 RBC 3.80 L Hgb 11.4 L Hct 35.3 MCV 92.8 MCH 29.9 MCHC 32.3 L RDW 16.5 H Plt Count 187 MPV 9.3 Neut % (Auto) 59.4 Lymph % (Auto) 23.4 [place] % (Auto) 12.7 H Eos % (Auto) 3.9 Baso % (Auto) 0.6 Neut # (Auto) 3.8 Lymph # (Auto) 1.5 [place] # (Auto) 0.8 Eos # (Auto) 0.3 Baso # (Auto) 0.0 Sodium 142 Potassium 4.1 Chloride 112 H Carbon Dioxide 24 Anion Gap 10 BUN 47 H Creatinine 1.8 H Est GFR ( Amer) 45 Est GFR (Non-Af Amer) 38 Random Glucose 102 Calcium 8.6 Phosphorus 3.3 Magnesium 1.6 Total Bilirubin 0.8 AST 39 ALT 21 D Alkaline Phosphatase 94 Total Protein 6.4 Albumin 3.3 L Globulin 3.1 Albumin/Globulin Ratio 1.0 Assessment & Plan - Assessment and Plan (Free Text) Assessment: 68 years old male with hx of Chronic A Fib on Eliquis bid, Alcohol abuse and CKD. He comes to the ED because of worsening of his weakness today, unsteady gait and frequent falls. CT on 12/02 shows right thalamic bleed, neuro and neurosx consult, on fluids, off anticoag/antiplatelet treatment. Neuro CT head - right thalamic bleed CTA of head and neck - occlusion of the proximal left common carotid artery carotid carotid artery. Complete occlusion of the right internal carotid artery. High-grade stenosis of the right vertebral artery with small caliber hypoplastic appearing left vertebral artery CT head repeat - right thalamic bleed still visible - There is a moderate-sized hemorrhage within the right thalamus surrounded by a rim of low-attenuation edema. Hemorrhage has decompressed into the ventricular system Dr Metcalf - neurology consult - f/u recs Dr Mondragon - neurosx consult - f/u recs Cardiac hx of chronic afib - continue to hold eliquis - monitor Pulm hx of COPD - no acute issues at this time continue to monitor GI swallow eval - mechanical, nectar diet - soft diet protonix Nephro Acute on chronic kidney disease IV fluids NS @ 75 cc K 3.5 - repleted with KCL follow up electrolytes - replete as needed Heme/Onc hx of anemia of chronic disease H/H this am - continue to follow up ID afebrile, no white count PPx DVT: c/i for SCDs due to PVD and leg stents, C/i VTE due to cerebral bleed GI: Protonix PT/OT
[2018-12-06] MEDS: Aztreonam 2 GM in Sodium Chloride 0.9% 100 ML IVPB SCH ×3 (04:30→21:20)
[2018-12-06 06:35] LABS: BASO # 0.1 K/uL (0.0-0.2); BASO % 0.9 % (0.0-2.0); EOS # 0.4 K/uL (0.0-0.7); EOS % 5.9 % (0.0-4.0); HEMOGLOBIN 10.4 g/dL (12.0-18.0); LYMPH # 1.7 K/uL (1.0-4.3); LYMPH % 24.1 % (20.0-40.0); MEAN CELL VOLUME 93.8 fL (80.0-94.0); MEAN CORPUSCULAR HEMOGLOBIN 30.6 pg (27.0-31.0); MEAN CORPUSCULAR HGB CONC 32.6 g/dL (33.0-37.0); MEAN PLATELET VOLUME 10.1 fL (7.2-11.7); MONO # 0.7 K/uL (0.0-0.8); MONO % 10.6 % (0.0-10.0); NEUT # 4.1 K/uL (1.8-7.0); NEUT % 58.5 % (50.0-75.0); RBC 3.39 Mil/uL (4.40-5.90); RED CELL DISTRIBUTION WIDTH 16.7 % (11.5-14.5)
[2018-12-06 07:02] LABS: ALBUMIN 2.9 g/dL (3.5-5.0); CALCIUM 8.6 mg/dl (8.6-10.4)
--- NOTE | 2018-12-06 15:52 | CP.PCM.PN ---
Subjective - Date & Time of Evaluation Date of Evaluation: 12/06/18 Time of Evaluation: 15:49 - Subjective Subjective: Neuro Follow-Up Note: Mr. Patel was evaluated this afternoon in the ICU. He has been downgraded to telemetry. He denies any complaints currently; no h/a, dizziness, visual changes, chest pain, palpitations, sob, cough, abd pain, n/v/d. Objective - Vital Signs/Intake and Output Vital Signs (last 24 hours): Temp Pulse Resp BP Pulse Ox 98.5 F 83 21 150/65 98 12/06/18 04:00 12/06/18 06:00 12/06/18 06:00 12/06/18 05:59 12/06/18 06:00 Intake and Output: 12/06/18 12/06/18 06:59 18:59 Intake Total 320 Output Total 300 Balance 20 - Medications Medications: Current Medications Albuterol/Ipratropium (Duoneb 3 Mg/0.5 Mg (3 Ml) Ud) 3 ml INH RQ6 PRN PRN Reason: Shortness of Breath Aztreonam 2 gm/ Sodium (Chloride) 100 mls @ 200 mls/hr IVPB Q8H [facility]; Protocol Last Admin: 12/06/18 13:12 Dose: 200 mls/hr Pantoprazole Sodium (Protonix Inj) 40 mg IVP DAILY [facility] Last Admin: 12/06/18 10:59 Dose: 40 mg - Labs Labs: 12/06/18 06:26 12/06/18 06:24 APTT 32 SECONDS (21-34) 12/02/18 20:10 - Constitutional Appears: Well, Non-toxic, No Acute Distress - Head Exam Head Exam: ATRAUMATIC, NORMAL INSPECTION, NORMOCEPHALIC - Eye Exam Eye Exam: EOMI, Normal appearance Pupil Exam: NORMAL ACCOMODATION, PERRL - ENT Exam ENT Exam: Mucous Membranes Dry - Neck Exam Neck Exam: Full ROM, Normal Inspection - Respiratory Exam Respiratory Exam: NORMAL BREATHING PATTERN - Cardiovascular Exam Cardiovascular Exam: Irregular Rhythm - GI/Abdominal Exam GI & Abdominal Exam: Soft - Extremities Exam Extremities Exam: Full ROM (generalized weakness noted 2/2 deconditioning). 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 Speech clear, fluid. Follows all commands. LUE noted to be slightly weaker than RUE; strength to BLE equal Sensation equal No tremors - Psychiatric Exam Psychiatric exam: Normal Affect, Normal Mood - Skin Skin Exam: Normal Color Additional comments: abrasions noted to LLE wrapped with kerlix Assessment and Plan (1) Thalamic hemorrhage Assessment & Plan: Imaging reviewed: -12/02/18 CT head: Centered in the right thalamus with apparent extension to the right lateral ventricle there is a 4.3 x 2.1 x 3.0 centimeter focal area of acute hemorrhage. There is surrounding edema as well as local mass-effect. Apparent midline shift to the left measuring approximately 4 millimeters. Further evaluation with MRI/MRA would be helpful if clinically indicated. -12/02/18 CTA head/neck: There is occlusion of the proximal left common carotid artery carotid carotid artery. Complete occlusion of the right internal carotid artery. High-grade stenosis of the right vertebral artery with small caliber hypoplastic appearing left vertebral artery. There is intra cerebral flow into the anterior middle cerebral arteries via the [id number] provided by the both vertebral arteries. No evidence of large aneurysm nor vascular malformation. -12/03/[address] head: Redemonstrated is a elliptical shaped on hematoma in the right thalamus which measures approximately 3.5 x 1.8 x 3.2 cm.. This hematoma surrounded by a demarcating rim of low-attenuation edema and or necrotic brain tissue. The hemorrhage and surrounding attendant edema exert adjacent mass effect with compression of the right lateral ventricle and slight shift of the septum pellucidum from right to left approximately 7 mm. Hemorrhage is also decompressed into the right frontal horn and to a lesser degree mid body of the right lateral ventricle.. Small amount of hemorrhage is also seen layering in the dependent portion of both occipital horns. There is a moderate-sized hemorrhage within the right thalamus surrounded by a rim of low- attenuation edema. Hemorrhage and edema exert adjacent mass effect with compression of the right lateral ventricle and mild shift of the septum pellucidum from right to left. Hemorrhage has decompressed into the ventricular system as above. Mild chronic white matter ischemic changes with brainstem and suspected bilateral basal nuclei ischemic changes. Moderate generalized volume loss. -12/04/18 Lumbar MRI without contrast: No definite disc herniation or severe stenosis appreciated. Straightened lumbar curvature is noted with multilevel disc bulging and facet arthropathy affecting the mid to inferior lumbar spine, seen worst at L4-5 where mild central canal stenosis results. Overall pattern only slightly worsened compared to prior CT lumbar spine 02/09/2016. -Continue blood pressure control/management. -Continue PT. Recommend rehab upon d/c. Accepted at [facility]. -Continue to hold Eliquis. -Cardiology (Dr. Lockhart) on case--we would appreciate his recommendations for restarting AC as this is his office pt. -Notify neuro team of any acute changes in condition. Case discussed with Dr. Taylor Status: Acute
[2018-12-07] MEDS: Aztreonam 2 GM in Sodium Chloride 0.9% 100 ML IVPB SCH ×3 (05:15→21:01)
--- NOTE | 2018-12-07 07:24 | CP.PCM.PN ---
Subjective - Date & Time of Evaluation Date of Evaluation: 12/06/18 Time of Evaluation: 17:00 - Subjective Subjective: Patient seen and evaluated denies chest pain and dyspnea Physical Examination - Constitutional Appears: No Acute Distress - Head Exam Head Exam: ATRAUMATIC, NORMOCEPHALIC - Eye Exam Eye Exam: EOMI, PERRL - ENT Exam ENT Exam: Mucous Membranes Dry - Respiratory Exam Respiratory Exam: NORMAL BREATHING PATTERN - Cardiovascular Exam Cardiovascular Exam: Irregular Rhythm, +S1, +S2 - GI/Abdominal Exam GI & Abdominal Exam: Soft, Normal Bowel Sounds - Extremities Exam Additional comments: Abrasions to left lower monterroso - Neurological Exam Neurological Exam: Alert, Awake Additional comments: Objective - Vital Signs/Intake and Output Vital Signs (last 24 hours): Temp Pulse Resp BP Pulse Ox 98.2 F 60 18 134/51 L 96 12/06/18 16:00 12/07/18 04:00 12/07/18 04:00 12/07/18 04:00 12/07/18 04:00 Intake and Output: 12/07/18 12/07/18 06:59 18:59 Intake Total 200 Balance 200 - Medications Medications: Current Medications Albuterol/Ipratropium (Duoneb 3 Mg/0.5 Mg (3 Ml) Ud) 3 ml INH RQ6 PRN PRN Reason: Shortness of Breath Aztreonam 2 gm/ Sodium (Chloride) 100 mls @ 200 mls/hr IVPB Q8H [facility]; Protocol Last Admin: 12/07/18 05:15 Dose: 200 mls/hr Pantoprazole Sodium (Protonix Inj) 40 mg IVP DAILY [facility] Last Admin: 12/06/18 10:59 Dose: 40 mg - Labs Labs: 12/06/18 06:26 12/06/18 06:24 APTT 32 SECONDS (21-34) 12/02/18 20:10 Assessment and Plan - Assessment and Plan (Free Text) Assessment: 68 years old male with hx of Chronic A Fib on Eliquis bid, Alcohol abuse and CKD. He comes to the ED because of worsening of his weakness today, unsteady gait and frequent falls. CT on 12/02 shows right thalamic bleed, neuro and neurosx consult, on fluids, off anticoag/antiplatelet treatment. Neuro CT head - right thalamic bleed CTA of head and neck - occlusion of the proximal left common carotid artery carotid carotid artery. Complete occlusion of the right internal carotid artery. High-grade stenosis of the right vertebral artery with small caliber hypoplastic appearing left vertebral artery CT head repeat - right thalamic bleed still visible - There is a moderate-sized hemorrhage within the right thalamus surrounded by a rim of low-attenuation edema. Hemorrhage has decompressed into the ventricular system Dr Metcalf - neurology consult - f/u recs Dr Mondragon - neurosx consult - f/u recs Cardiac hx of chronic afib - continue to hold eliquis - monitor Pulm hx of COPD - no acute issues at this time continue to monitor GI swallow eval - mechanical, nectar diet - soft diet protonix Nephro Acute on chronic kidney disease IV fluids NS @ 75 cc K 3.5 - repleted with KCL follow up electrolytes - replete as needed Heme/Onc hx of anemia of chronic disease H/H this am - continue to follow up ID afebrile, no white count PPx DVT: c/i for SCDs due to PVD and leg stents, C/i VTE due to cerebral bleed GI: Protonix PT/OT
[2018-12-08] MEDS ORDERED: Ciprofloxacin 200mg/100ml D5W 100 ML IVPB STA (00:46)
[2018-12-08] MEDS: Aztreonam 2 GM in Sodium Chloride 0.9% 100 ML IVPB SCH ×3 (04:58→21:19)
--- NOTE | 2018-12-08 14:07 | CP.PCM.PN ---
Subjective - Date & Time of Evaluation Date of Evaluation: 12/07/18 Time of Evaluation: 14:07 - Subjective Subjective: Patient is being transferred to sixth floor. Awake and responding. Not in any distress. Episodes of tachycardia noted. Bradycardia present. Seen by customer solutions teammate. On examination: Chest good air entry Regular heart sounds noted Abdomen soft Nontender. Vital signs stable. We will continue the current treatment. Physical therapy. Patient is needing rehab. Awaiting for placement Objective - Vital Signs/Intake and Output Vital Signs (last 24 hours): Temp Pulse Resp BP Pulse Ox 98.1 F 72 18 150/60 97 12/08/18 07:00 12/08/18 08:00 12/08/18 07:00 12/08/18 07:00 12/08/18 07:00 Intake and Output: 12/08/18 12/08/18 06:59 18:59 Intake Total 400 Balance 400 - Medications Medications: Current Medications Aztreonam 2 gm/ Sodium (Chloride) 100 mls @ 200 mls/hr IVPB Q8H [facility]; Protocol Last Admin: 12/08/18 04:58 Dose: 200 mls/hr Pantoprazole Sodium (Protonix Inj) 40 mg IVP DAILY [facility] Last Admin: 12/08/18 10:33 Dose: 40 mg - Labs Labs: 12/06/18 06:26 12/06/18 06:24 APTT 32 SECONDS (21-34) 12/02/18 20:10
--- NOTE | 2018-12-08 14:07 | CP.PCM.PN ---
Subjective - Date & Time of Evaluation Date of Evaluation: 12/08/18 Time of Evaluation: 14:07 - Subjective Subjective: Patient now complaining of no pain. He denies any chest pain. No nausea no vomiting. But complaining of minimal headache On examination: Vital signs stable. Chest good air entry, regular heart sounds abdomen soft nontender. Patient is a 68-year-old male. We will continue the start the physical therapy. Fall. Intracranial bleed. Stable. We will follow the patient For rehab Objective - Vital Signs/Intake and Output Vital Signs (last 24 hours): Temp Pulse Resp BP Pulse Ox 98.1 F 72 18 150/60 97 12/08/18 07:00 12/08/18 08:00 12/08/18 07:00 12/08/18 07:00 12/08/18 07:00 Intake and Output: 12/08/18 12/08/18 06:59 18:59 Intake Total 400 Balance 400 - Medications Medications: Current Medications Aztreonam 2 gm/ Sodium (Chloride) 100 mls @ 200 mls/hr IVPB Q8H [facility]; Protocol Last Admin: 12/08/18 04:58 Dose: 200 mls/hr Pantoprazole Sodium (Protonix Inj) 40 mg IVP DAILY [facility] Last Admin: 12/08/18 10:33 Dose: 40 mg - Labs Labs: 12/06/18 06:26 12/06/18 06:24 APTT 32 SECONDS (21-34) 12/02/18 20:10
--- NOTE | 2018-12-08 14:07 | CP.PCM.PN ---
Subjective - Date & Time of Evaluation Date of Evaluation: 12/05/18 Time of Evaluation: 14:07 - Subjective Subjective: Patient is currently in the intensive care unit. Sitting up comfortably. He is able to eat better. He denies any abdominal pain. Less headache noted Vital signs stable. Chest good air entry Heart sounds are regular Abdomen soft. Patient is able to move the 4 extremities Assessment: 68-year-old male with a history of hypertension alcoholism admitted with the intracranial bleed. Stable. For physical therapy patient is also having episode of urinary tract infection, and antibiotic Objective - Vital Signs/Intake and Output Vital Signs (last 24 hours): Temp Pulse Resp BP Pulse Ox 98.1 F 72 18 150/60 97 12/08/18 07:00 12/08/18 08:00 12/08/18 07:00 12/08/18 07:00 12/08/18 07:00 Intake and Output: 12/08/18 12/08/18 06:59 18:59 Intake Total 400 Balance 400 - Medications Medications: Current Medications Aztreonam 2 gm/ Sodium (Chloride) 100 mls @ 200 mls/hr IVPB Q8H [facility]; Protocol Last Admin: 12/08/18 04:58 Dose: 200 mls/hr Pantoprazole Sodium (Protonix Inj) 40 mg IVP DAILY [facility] Last Admin: 12/08/18 10:33 Dose: 40 mg - Labs Labs: 12/06/18 06:26 12/06/18 06:24 APTT 32 SECONDS (21-34) 12/02/18 20:10
--- NOTE | 2018-12-08 21:54 | CP.PCM.PN ---
Subjective - Date & Time of Evaluation Date of Evaluation: 12/08/18 Time of Evaluation: 19:25 - Subjective Subjective: Patient seen and evaluated denies chest pain and dyspnea Physical Examination - Constitutional Appears: No Acute Distress - Head Exam Head Exam: ATRAUMATIC, NORMOCEPHALIC - Eye Exam Eye Exam: EOMI, PERRL - ENT Exam ENT Exam: Mucous Membranes Dry - Respiratory Exam Respiratory Exam: NORMAL BREATHING PATTERN - Cardiovascular Exam Cardiovascular Exam: Irregular Rhythm, +S1, +S2 - GI/Abdominal Exam GI & Abdominal Exam: Soft, Normal Bowel Sounds - Extremities Exam Additional comments: Abrasions to left lower monter[place]so - Neurological Exam Neurological Exam: Alert, Awake Additional comments: Assessment and Plan - Assessment and Plan (Free Text) Assessment: 68 years old male with hx of Chronic A Fib on Eliquis bid, Alcohol abuse and CKD. He comes to the ED because of worsening of his weakness today, unsteady gait and frequent falls. CT on 12/02 shows right thalamic bleed, neuro and neurosx consult, on fluids, off anticoag/antiplatelet treatment. Neuro CT head - right thalamic bleed CTA of head and neck - occlusion of the proximal left common carotid artery carotid carotid artery. Complete occlusion of the right internal carotid artery. High-grade stenosis of the right vertebral artery with small caliber hypoplastic appearing left vertebral artery CT head repeat - right thalamic bleed still visible - There is a moderate-sized hemorrhage within the right thalamus surrounded by a rim of low-attenuation edema. Hemorrhage has decompressed into the ventricular system Dr Metcalf - neurology consult - f/u recs Dr Mondragon - neurosx consult - f/u recs Cardiac hx of chronic afib - continue to hold eliquis - monitor Pulm hx of COPD - no acute issues at this time continue to monitor GI swallow eval - mechanical, nectar diet - soft diet protonix Nephro Acute on chronic kidney disease IV fluids NS @ 75 cc K 3.5 - repleted with KCL follow up electrolytes - replete as needed Heme/Onc hx of anemia of chronic disease H/H this am - continue to follow up ID afebrile, no white count PPx DVT: c/i for SCDs due to PVD and leg stents, C/i VTE due to cerebral bleed GI: Protonix PT/OT Objective - Vital Signs/Intake and Output Vital Signs (last 24 hours): Temp Pulse Resp BP Pulse Ox 98.2 F 92 H 20 145/77 100 12/08/18 15:15 12/08/18 18:00 12/08/18 15:15 12/08/18 15:15 12/08/18 15:15 - Medications Medications: Current Medications Aztreonam 2 gm/ Sodium (Chloride) 100 mls @ 200 mls/hr IVPB Q8H [facility]; Protocol Last Admin: 12/08/18 21:19 Dose: 200 mls/hr Pantoprazole Sodium (Protonix Inj) 40 mg IVP DAILY [facility] Last Admin: 12/08/18 10:33 Dose: 40 mg - Labs Labs: 12/06/18 06:26 12/06/18 06:24 APTT 32 SECONDS (21-34) 12/02/18 20:10
[2018-12-09] MEDS: Aztreonam 2 GM in Sodium Chloride 0.9% 100 ML IVPB SCH ×2 (04:30→12:54)
--- NOTE | 2018-12-09 09:37 | CP.PCM.PN ---
<JordanaAnthony - Last Filed: 12/09/18 17:28> Subjective - Date & Time of Evaluation Date of Evaluation: 12/09/18 Time of Evaluation: 09:36 - Subjective Subjective: Dr. Lockhart Service Patient seen and examined at bedside. Per nursing, no acute events occurred overnight . Patient denies any chest pain, fevers, chills, nausea, vomiting, headaches, changes in vision, syncopal episodes, or any other complaints. Objective - Vital Signs/Intake and Output Vital Signs (last 24 hours): Temp Pulse Resp BP Pulse Ox 98.0 F 60 20 154/70 H 98 12/09/18 08:00 12/09/18 08:00 12/09/18 08:00 12/09/18 08:00 12/09/18 08:00 - Medications Medications: Current Medications Aztreonam 2 gm/ Sodium (Chloride) 100 mls @ 200 mls/hr IVPB Q8H [facility]; Protocol Last Admin: 12/09/18 04:30 Dose: 200 mls/hr Pantoprazole Sodium (Protonix Inj) 40 mg IVP DAILY [facility] Last Admin: 12/08/18 10:33 Dose: 40 mg - Labs Labs: 12/06/18 06:26 12/06/18 06:24 APTT 32 SECONDS (21-34) 12/02/18 20:10 - Head Exam Head Exam: ATRAUMATIC, NORMAL INSPECTION - Eye Exam Eye Exam: EOMI, Normal appearance, PERRL Pupil Exam: NORMAL ACCOMODATION - ENT Exam ENT Exam: Mucous Membranes Moist, Normal Oropharynx - Neck Exam Neck Exam: Normal Inspection - Respiratory Exam Respiratory Exam: Clear to Ausculation Bilateral, NORMAL BREATHING PATTERN. absent: Respiratory Distress - Cardiovascular Exam Cardiovascular Exam: REGULAR RHYTHM, +S1, +S2 - GI/Abdominal Exam GI & Abdominal Exam: Soft, Normal Bowel Sounds - Neurological Exam Neurological Exam: Alert, Awake, CN II-XII Intact, Oriented x3 - Psychiatric Exam Psychiatric exam: Normal Affect, Normal Mood. absent: Depressed - Skin Skin Exam: Dry, Intact, Normal Color Assessment and Plan - Assessment and Plan (Free Text) Assessment: 68 years old male with hx of Chronic A Fib on Eliquis bid, Alcohol abuse and CKD. He comes to the ED because of worsening of his weakness today, unsteady gait and frequent falls. CT on 12/02 shows right thalamic bleed, neuro and neurosx consult. Right thalamic bleed CT head - right thalamic bleed CTA of head and neck - occlusion of the proximal left common carotid artery carotid carotid artery. Complete occlusion of the right internal carotid artery. High-grade stenosis of the right vertebral artery with small caliber hypoplastic appearing left vertebral artery CT head repeat - right thalamic bleed still visible - There is a moderate-sized hemorrhage within the right thalamus surrounded by a rim of low-attenuation edema. Hemorrhage has decompressed into the ventricular system Neurology Dr. Metcalf Consulted. Help appreciated. Chronic afib -Eliquis 2.5MG po bid Hypothyroidism -Synthroid 25mcg PO ACB PPx DVT: c/i for SCDs due to PVD and leg stents, C/i VTE due to cerebral bleed GI: Protonix PT/OT <Isaiah Lockhart - Last Filed: 12/09/18 23:35> Objective - Vital Signs/Intake and Output Vital Signs (last 24 hours): Temp Pulse Resp BP Pulse Ox 98.1 F 56 L 20 136/66 99 12/09/18 16:00 12/09/18 16:00 12/09/18 16:00 12/09/18 16:00 12/09/18 16:00 Intake and Output: 12/09/18 12/10/18 18:59 06:59 Intake Total 480 Balance 480 - Medications Medications: Current Medications Pantoprazole Sodium (Protonix Inj) 40 mg IVP DAILY [facility] Last Admin: 12/09/18 10:45 Dose: 40 mg - Labs Labs: 12/06/18 06:26 12/06/18 06:24 APTT 32 SECONDS (21-34) 12/02/18 20:10 Assessment and Plan - Assessment and Plan (Free Text) Assessment: Patient seen and evaluated personally by me. Plan of care d/w the resident and as documented
--- NOTE | 2018-12-09 10:33 | CP.PCM.PN ---
Subjective - Date & Time of Evaluation Date of Evaluation: 12/09/18 Time of Evaluation: 10:32 - Subjective Subjective: Neuro Follow-Up Note: Mr. Patel was evaluated this morning at bedside. he states that he is doing well; is anxious to be d/c. He currently denies any complaints. Denies h/a, dizziness, visual changes, chest pain, palpitations, sob, cough, abd pain, n/v/d. Objective - Vital Signs/Intake and Output Vital Signs (last 24 hours): Temp Pulse Resp BP Pulse Ox 98.0 F 60 20 154/70 H 98 12/09/18 08:00 12/09/18 08:00 12/09/18 08:00 12/09/18 08:00 12/09/18 08:00 - Medications Medications: Current Medications Aztreonam 2 gm/ Sodium (Chloride) 100 mls @ 200 mls/hr IVPB Q8H [facility]; Protocol Last Admin: 12/09/18 04:30 Dose: 200 mls/hr Pantoprazole Sodium (Protonix Inj) 40 mg IVP DAILY [facility] Last Admin: 12/08/18 10:33 Dose: 40 mg - Labs Labs: 12/06/18 06:26 12/06/18 06:24 APTT 32 SECONDS (21-34) 12/02/18 20:10 - Constitutional Appears: Well, Non-toxic, No Acute Distress - Head Exam Head Exam: ATRAUMATIC, NORMAL INSPECTION, NORMOCEPHALIC - Eye Exam Eye Exam: EOMI, Normal appearance, PERRL Pupil Exam: NORMAL ACCOMODATION, PERRL - ENT Exam ENT Exam: Mucous Membranes Moist - Neck Exam Neck Exam: Full ROM, Normal Inspection - Respiratory Exam Respiratory Exam: NORMAL BREATHING PATTERN - Extremities Exam Extremities Exam: absent: Calf Tenderness, Full ROM, Pedal Edema Additional comments: Able to move all extremities; + generalized weakness 2/2 deconditioning more to BLE LUE vp analysis still slightly weaker than RUE - Back Exam Back Exam: Full ROM, NORMAL INSPECTION - Neurological Exam Neurological Exam: Abnormal Gait, Alert, Awake, CN II-XII Intact, Reflexes Normal Neuro motor strength exam: Left Upper Extremity: 5 (vp analysis 4/5), Right Upper Ext remity: 5 (vp analysis 5/5), Left Lower Extremity: 4, Right Lower Extremity: 4 Additional comments: AAO to person and place Speech clear, fluid Follows all commands Able to move all extremities; + generalized weakness 2/2 deconditioning more to BLE LUE vp analysis still slightly weaker than RUE No tremors Gait unsteady--observed during PT - Psychiatric Exam Psychiatric exam: Normal Affect, Normal Mood - Skin Skin Exam: Normal Color Additional comments: dressing noted to LLE Assessment and Plan (1) Thalamic hemorrhage Assessment & Plan: Imaging reviewed: -12/09/18 CT Head: pending. -12/02/18 CT head: Centered in the right thalamus with apparent extension to the right lateral ventricle there is a 4.3 x 2.1 x 3.0 centimeter focal area of acute hemorrhage. There is surrounding edema as well as local mass-effect. Apparent midline shift to the left measuring approximately 4 millimeters. Further evaluation with MRI/MRA would be helpful if clinically indicated. -12/02/18 CTA head/neck: There is occlusion of the proximal left common carotid artery carotid carotid artery. Complete occlusion of the right internal carotid artery. High-grade stenosis of the right vertebral artery with small caliber hypoplastic appearing left vertebral artery. There is intra cerebral flow into the anterior middle cerebral arteries via the [id number] provided by the both vertebral arteries. No evidence of large aneurysm nor vascular malformation. -12/03/[address] head: Redemonstrated is a elliptical shaped on hematoma in the right thalamus which measures approximately 3.5 x 1.8 x 3.2 cm.. This hematoma surrounded by a demarcating rim of low-attenuation edema and or necrotic brain tissue. The hemorrhage and surrounding attendant edema exert adjacent mass effect with compression of the right lateral ventricle and slight shift of the septum pellucidum from right to left approximately 7 mm. Hemorrhage is also decompressed into the right frontal horn and to a lesser degree mid body of the right lateral ventricle.. Small amount of hemorrhage is also seen layering in the dependent portion of both occipital horns. There is a moderate-sized hemorrhage within the right thalamus surrounded by a rim of low- attenuation edema. Hemorrhage and edema exert adjacent mass effect with compression of the right lateral ventricle and mild shift of the septum pellucidum from right to left. Hemorrhage has decompressed into the ventricular system as above. Mild chronic white matter ischemic changes with brainstem and suspected bilateral basal nuclei ischemic changes. Moderate generalized volume loss. -12/04/18 Lumbar MRI without contrast: No definite disc herniation or severe stenosis appreciated. Straightened lumbar curvature is noted with multilevel disc bulging and facet arthropathy affecting the mid to inferior lumbar spine, seen worst at L4-5 where mild central canal stenosis results. Overall pattern only slightly worsened compared to prior CT lumbar spine 02/09/2016. -Repeat non-contrast CT Head ordered to re-eval cerebral hemorrhage--will follow up with results once completed. -Continue blood pressure control/management. -Continue PT. Recommend rehab upon d/c. Accepted at [facility] per keycase assembler. -Continue to hold Eliquis until further notice. -Cardiology (Dr. Lockhart) on case--we would appreciate his recommendations for restarting AC. -Notify neuro team of any acute changes in condition. Case discussed with Dr. Metcalf Status: Acute
--- NOTE | 2018-12-09 13:11 | CT ---
Date of service: 12/09/2018 PROCEDURE: CT HEAD WITHOUT CONTRAST. HISTORY: re-eval cerebral hemorrhage COMPARISON: 12/03/2018 TECHNIQUE: Axial computed tomography images were obtained through the head/brain without intravenous contrast. Radiation dose: Total exam DLP = 1096.94 mGy-cm. This CT exam was performed using one or more of the following dose reduction techniques: Automated exposure control, adjustment of the mA and/or kV according to patient size, and/or use of iterative reconstruction technique. FINDINGS: HEMORRHAGE: Once again, note is made of localized right thalamic hemorrhage common now subacute. This is most likely the sequela of a hypertensive hemorrhage in the right thalamus. There mass effect upon the right lateral ventricle. There is mild surrounding. There is approximately 10 mm midline shift towards the left. There is no evidence of downward herniation. The perimesencephalic cisterns are preserved. BRAIN: No intracranial mass. No evidence of acute infarct old lacunar infarct in the head of the left caudate nucleus. 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 Mild diffuse age-appropriate atrophy. Minimal periventricular white matter lucency consistent with chronic microvascular ischemic change. VENTRICLES: No hydrocephalus. Midline shift towards the left by approximately 10 mm as a result of the right thalamic hemorrhage. No downward herniation. CALVARIUM: Unremarkable. PARANASAL SINUSES: Chronic right maxillary sinusitis. MASTOID AIR CELLS: Unremarkable as visualized. No inflammatory changes. OTHER FINDINGS: None. IMPRESSION: Subacute right thalamic hemorrhage with 10 mm midline shift towards the left but no downward herniation. 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
--- NOTE | 2018-12-10 07:53 | CP.PCM.PN ---
Subjective - Date & Time of Evaluation Date of Evaluation: 12/09/18 Time of Evaluation: 07:53 - Subjective Subjective: Patient is more awake and responding. No weakness noted. No headache. But complaining of some discomfort. Eating well We will continue the current treatment. Objective - Vital Signs/Intake and Output Vital Signs (last 24 hours): Temp Pulse Resp BP Pulse Ox 98.7 F 56 L 20 167/79 H 96 12/09/18 23:30 12/10/18 00:48 12/09/18 23:30 12/09/18 23:30 12/09/18 23:30 - Medications Medications: Current Medications Pantoprazole Sodium (Protonix Inj) 40 mg IVP DAILY [facility] Last Admin: 12/09/18 10:45 Dose: 40 mg - Labs Labs: 12/06/18 06:26 12/06/18 06:24 APTT 32 SECONDS (21-34) 12/02/18 20:10
--- NOTE | 2018-12-10 07:54 | CP.PCM.PN ---
Subjective - Date & Time of Evaluation Date of Evaluation: 12/10/18 Time of Evaluation: 07:53 - Subjective Subjective: Patient is closely monitored. No chest pain He denies any nausea vomiting. But he is somewhat agitated. No chest pain no nausea He wanted to leave. Patient is currently awaiting for rehab. Objective - Vital Signs/Intake and Output Vital Signs (last 24 hours): Temp Pulse Resp BP Pulse Ox 98.7 F 56 L 20 167/79 H 96 12/09/18 23:30 12/10/18 00:48 12/09/18 23:30 12/09/18 23:30 12/09/18 23:30 - Medications Medications: Current Medications Pantoprazole Sodium (Protonix Inj) 40 mg IVP DAILY [facility] Last Admin: 12/09/18 10:45 Dose: 40 mg - Labs Labs: 12/06/18 06:26 12/06/18 06:24 APTT 32 SECONDS (21-34) 12/02/18 20:10
[2018-12-10 09:15] LABS: BASO # 0.1 K/uL (0.0-0.2); BASO % 0.9 % (0.0-2.0); EOS # 0.5 K/uL (0.0-0.7); EOS % 7.7 % (0.0-4.0); HEMOGLOBIN 10.2 g/dL (12.0-18.0); LYMPH # 1.3 K/uL (1.0-4.3); LYMPH % 21.5 % (20.0-40.0); MEAN CELL VOLUME 93.1 fL (80.0-94.0); MEAN CORPUSCULAR HEMOGLOBIN 30.2 pg (27.0-31.0); MEAN CORPUSCULAR HGB CONC 32.5 g/dL (33.0-37.0); MONO # 0.6 K/uL (0.0-0.8); MONO % 9.8 % (0.0-10.0); NEUT # 3.8 K/uL (1.8-7.0); NEUT % 60.1 % (50.0-75.0); RBC 3.37 Mil/uL (4.40-5.90); RED CELL DISTRIBUTION WIDTH 16.1 % (11.5-14.5); WHITE BLOOD COUNT 6.3 K/uL (4.8-10.8)
[2018-12-10] MEDS: Ciprofloxacin 400mg/200ml D5W 400 MG/200 ML BAG IVPB SCH ×2 (10:08→20:26)
[2018-12-10 10:15] LABS: ALB/GLOB RATIO 1.1 (1.0-2.1); ALBUMIN 3.1 g/dL (3.5-5.0); CALCIUM 9.2 mg/dl (8.6-10.4)
--- NOTE | 2018-12-10 13:10 | CP.PCM.PN ---
<Anthony Silveira - Last Filed: 12/10/18 17:21> Subjective - Date & Time of Evaluation Date of Evaluation: 12/10/18 Time of Evaluation: 13:10 - Subjective Subjective: Dr. Lockhart Service Patient seen and examined at bedside. Per nursing, no acute events occurred overnight . Patient denies any chest pain, fevers, chills, nausea, vomiting, headaches, changes in vision, syncopal episodes, or any other complaints. Objective - Vital Signs/Intake and Output Vital Signs (last 24 hours): Temp Pulse Resp BP Pulse Ox 98.7 F 72 18 169/69 H 100 12/10/18 07:00 12/10/18 12:49 12/10/18 07:00 12/10/18 07:00 12/10/18 07:00 Intake and Output: 12/10/18 12/10/18 06:59 18:59 Intake Total 100 Balance 100 - Medications Medications: Current Medications Ciprofloxacin (Cipro 400mg/200ml Dsw) 400 mg in 200 mls @ 133 mls/hr IVPB Q12H CADY; Protocol Last Admin: 12/10/18 10:08 Dose: 133 mls/hr Pantoprazole Sodium (Protonix Inj) 40 mg IVP DAILY CADY Last Admin: 12/10/18 10:09 Dose: 40 mg - Labs Labs: 12/10/18 09:03 12/10/18 09:03 APTT 32 SECONDS (21-34) 12/02/18 20:10 - Head Exam Head Exam: NORMAL INSPECTION - Eye Exam Eye Exam: EOMI, Normal appearance, PERRL Pupil Exam: NORMAL ACCOMODATION - ENT Exam ENT Exam: Mucous Membranes Moist, Normal Oropharynx - Neck Exam Neck Exam: Normal Inspection - Respiratory Exam Respiratory Exam: Clear to Ausculation Bilateral, NORMAL BREATHING PATTERN. absent: Respiratory Distress - Cardiovascular Exam Cardiovascular Exam: REGULAR RHYTHM, +S1, +S2 - GI/Abdominal Exam GI & Abdominal Exam: Soft, Normal Bowel Sounds - Extremities Exam Extremities Exam: Full ROM. absent: Pedal Edema - Back Exam Back Exam: NORMAL INSPECTION. absent: paraspinal tenderness - Neurological Exam Neurological Exam: Alert, Awake, Oriented x3 - Psychiatric Exam Psychiatric exam: Normal Affect, Normal Mood. absent: Depressed - Skin Skin Exam: Dry, Intact Assessment and Plan - Assessment and Plan (Free Text) Assessment: 68 years old male with hx of Chronic A Fib on Eliquis bid, Alcohol abuse and CKD. He comes to the ED because of worsening of his weakness today, unsteady gait and frequent falls. CT on 12/02 shows right thalamic bleed, neuro and neurosx consult. Plan: Right thalamic bleed CT head - right thalamic bleed CTA of head and neck - occlusion of the proximal left common carotid artery ca rotid carotid artery. Complete occlusion of the right internal carotid artery. High-grade stenosis of the right vertebral artery with small caliber hypoplastic appearing left vertebral artery CT head repeat - right thalamic bleed still visible - There is a moderate-sized hemorrhage within the right thalamus surrounded by a rim of low-attenuation edema. Hemorrhage has decompressed into the ventricular system CT head repeat: Subacute right thalamic hemorrhage with 10 mm midline shift towards the left but no downward herniation. 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 Neurology Dr. Metcalf Consulted. Help appreciated. Chronic afib -Eliquis 2.5MG po bid held due to evolving hemorrhage. Hypothyroidism -Synthroid 25mcg PO ACB PPx DVT: c/i for SCDs due to PVD and leg stents, C/i VTE due to cerebral bleed GI: Protonix PT/OT Plan discussed with Attending Dr. Lockhart. Anthony Silveira, PGY2 <Isaiah Lockhart - Last Filed: 12/10/18 22:57> Objective - Vital Signs/Intake and Output Vital Signs (last 24 hours): Temp Pulse Resp BP Pulse Ox 98.5 F 79 20 128/65 96 12/10/18 15:20 12/10/18 16:00 12/10/18 15:20 12/10/18 15:20 12/10/18 15:20 Intake and Output: 12/10/18 12/11/18 18:59 06:59 Intake Total 600 440 Balance 600 440 - Medications Medications: Current Medications Ciprofloxacin (Cipro 400mg/200ml Dsw) 400 mg in 200 mls @ 133 mls/hr IVPB Q12H CADY; Protocol Last Admin: 12/10/18 20:26 Dose: 133 mls/hr Pantoprazole Sodium (Protonix Inj) 40 mg IVP DAILY CADY Last Admin: 12/10/18 10:09 Dose: 40 mg - Labs Labs: 12/10/18 09:03 12/10/18 09:03 APTT 32 SECONDS (21-34) 12/02/18 20:10 Assessment and Plan - Assessment and Plan (Free Text) Plan: Patient seen and evaluated personally by me. Plan of care d/w the resident and as documented
[2018-12-10 14:51] LABS: SQUAMOUS EPITHIAL 3 /hpf (0-5); URINE BACTERIA RARE (<OCC); URINE BILIRUBIN NEGATIVE (NEGATIVE); URINE BLOOD NEGATIVE (NEGATIVE); URINE CLARITY Clear (Clear); URINE COLOR Yellow (YELLOW); URINE GLUCOSE (UA) NORMAL (Normal); URINE LEUKOCYTE ESTERASE 1+ Leu/uL (Negative); URINE PROTEIN NEGATIVE (NEGATIVE)
--- NOTE | 2018-12-10 15:03 | CP.PCM.PN ---
Subjective - Date & Time of Evaluation Date of Evaluation: 12/10/18 Time of Evaluation: 15:11 - Subjective Subjective: PGY-1 Neurology Progress Note for Dr. Metcalf Patient seen and examined at bedside. No acute events overnight. Patient continuing to work with PT/OT/speech. Patient verbalized that he really hopes to regain function. Cognition and speech are still deficient, however there does appear to be some minor improvement. On object-naming task, patient was shown a pen and called it a snake. Patient denies chest pain, headache, dizziness, n/v/d/c, focal weakness, numbness or tingling. Objective - Vital Signs/Intake and Output Vital Signs (last 24 hours): Temp Pulse Resp BP Pulse Ox 98.7 F 72 18 169/69 H 100 12/10/18 07:00 12/10/18 12:49 12/10/18 07:00 12/10/18 07:00 12/10/18 07:00 Intake and Output: 12/10/18 12/10/18 06:59 18:59 Intake Total 100 600 Balance 100 600 - Medications Medications: Current Medications Ciprofloxacin (Cipro 400mg/200ml Dsw) 400 mg in 200 mls @ 133 mls/hr IVPB Q12H CADY; Protocol Last Admin: 12/10/18 10:08 Dose: 133 mls/hr Pantoprazole Sodium (Protonix Inj) 40 mg IVP DAILY CADY Last Admin: 12/10/18 10:09 Dose: 40 mg - Labs Labs: 12/10/18 09:03 12/10/18 09:03 APTT 32 SECONDS (21-34) 12/02/18 20:10 - Constitutional Appears: No Acute Distress - Head Exam Head Exam: ATRAUMATIC, NORMOCEPHALIC - Eye Exam Eye Exam: EOMI - ENT Exam ENT Exam: Mucous Membranes Moist - Respiratory Exam Respiratory Exam: Clear to Ausculation Bilateral, NORMAL BREATHING PATTERN. absent: Rhonchi, Wheezes - Cardiovascular Exam Cardiovascular Exam: REGULAR RHYTHM, +S1, +S2 - GI/Abdominal Exam GI & Abdominal Exam: Soft, Normal Bowel Sounds. absent: Tenderness - Extremities Exam Extremities Exam: absent: Pedal Edema, Tenderness - Neurological Exam Neurological Exam: Alert, Awake, CN II-XII Intact, Oriented x3 Neuro motor strength exam: Left Upper Extremity: 5, Right Upper Extremity: 5, Left Lower Extremity: 5, Right Lower Extremity: 5 Additional comments: persistent but improving cognitive and speech deficits - Psychiatric Exam Psychiatric exam: Normal Affect, Normal Mood - Skin Skin Exam: Dry, Intact Assessment and Plan - Assessment and Plan (Free Text) Assessment: 68 year old male with PMHx HTN, atrial fibrillation, PVD, CKD, COPD, and chronic alcohol abuse presenting initially for frequent falls, found to have right-sided thalamic hemorrhage. Plan: Right thalamic hemorrhage Imaging -12/09/18 CT Head - Subacute right thalamic hemorrhage with 10 mm midline shift towards the left but no downward herniation. 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 -12/02/18 CT head: Centered in the right thalamus with apparent extension to the right lateral ventricle there is a 4.3 x 2.1 x 3.0 centimeter focal area of acute hemorrhage. There is surrounding edema as well as local mass-effect. Apparent midline shift to the left measuring approximately 4 millimeters. Further evaluation with MRI/MRA would be helpful if clinically indicated. -12/02/18 CTA head/neck: There is occlusion of the proximal left common carotid artery carotid carotid artery. Complete occlusion of the right internal carotid artery. High-grade stenosis of the right vertebral artery with small caliber hypoplastic appearing left vertebral artery. There is intra cerebral flow into the anterior middle cerebral arteries via the [id number] provided by the both vertebral arteries. No evidence of large aneurysm nor vascular malformation. -12/03/[address] head: Redemonstrated is a elliptical shaped on hematoma in the right thalamus which measures approximately 3.5 x 1.8 x 3.2 cm.. This hematoma surrounded by a demarcating rim of low-attenuation edema and or necrotic brain tissue. The hemorrhage and surrounding attendant edema exert adjacent mass effect with compression of the right lateral ventricle and slight shift of the septum pellucidum from right to left approximately 7 mm. Hemorrhage is also decompressed into the right frontal horn and to a lesser degree mid body of the right lateral ventricle.. Small amount of hemorrhage is also seen layering in the dependent portion of both occipital horns. There is a moderate-sized hemorrhage within the right thalamus surrounded by a rim of low- attenuation edema. Hemorrhage and edema exert adjacent mass effect with compression of the right lateral ventricle and mild shift of the septum pellucidum from right to left. Hemorrhage has decompressed into the ventricular system as above. Mild chronic white matter ischemic changes with brainstem and suspected bilateral basal nuclei ischemic changes. Moderate generalized volume loss. -12/04/18 Lumbar MRI without contrast: No definite disc herniation or severe stenosis appreciated. Straightened lumbar curvature is noted with multilevel disc bulging and facet arthropathy affecting the mid to inferior lumbar spine, seen worst at L4-5 where mild central canal stenosis results. Overall pattern only slightly worsened compared to prior CT lumbar spine 02/09/2016. -Repeat non-contrast CT Head 12/[address] Metcalf - Thalamic hemorrhage on the right showing no significant improvement from most recent prior head CT on 12/02. -Continue to hold anticoagulation. Will d/w cardio regarding restarting el iquis. Dr. Lockhart on consult, help appreciated. -Continue PT/OT/speech. D/c to [facility] when stable (patient accept to [facility] per CM) -Monitor blood pressure Assessment and plan d/w Dr. Dixon Aguillon, PGY-1
[2018-12-11] MEDS ORDERED: Propofol 10 mg/ml Inj (20 ML) ONE (08:23)
[2018-12-11] MEDS ORDERED: Midazolam 2 MG/2 ML VIAL ONE (08:24)
--- NOTE | 2018-12-11 09:48 | CP.PCM.PN ---
<Tawanda Aguillon - Last Filed: 12/11/18 16:29> Subjective - Date & Time of Evaluation Date of Evaluation: 12/11/18 Time of Evaluation: 09:49 - Subjective Subjective: PGY-[address] Metcalf Patient seen and examined at bedside. No acute events overnight. Continuing with PT/OT - last treatment 12/09 noted slight balance issues, but otherwise steady improvement. [employer] suggest d/c dysphagia diet and advance to thin liquids. Patient remains mildly confused, with difficulty finding words. Patient denies dizziness, blurred vision headache, n/v/d/c, chest pain, shortness of breath. Objective - Vital Signs/Intake and Output Vital Signs (last 24 hours): Temp Pulse Resp BP Pulse Ox 98.6 F 67 20 177/70 H 98 12/11/18 07:00 12/11/18 08:00 12/11/18 07:00 12/11/18 07:00 12/11/18 08:07 Intake and Output: 12/11/18 12/11/18 06:59 18:59 Intake Total 560 Balance 560 - Medications Medications: Current Medications Ciprofloxacin (Cipro 400mg/200ml Dsw) 400 mg in 200 mls @ 133 mls/hr IVPB Q12H CAD[facility]; Protocol Last Admin: 12/10/18 20:26 Dose: 133 mls/hr Pantoprazole Sodium (Protonix Inj) 40 mg IVP DAILY CADY Last Admin: 12/10/18 10:09 Dose: 40 mg - Labs Labs: 12/10/18 09:03 12/10/18 09:03 APTT 32 SECONDS (21-34) 12/02/18 20:10 - Constitutional Appears: Non-toxic, No Acute Distress - Head Exam Head Exam: ATRAUMATIC, NORMOCEPHALIC - Eye Exam Eye Exam: EOMI - ENT Exam ENT Exam: Mucous Membranes Moist - Respiratory Exam Respiratory Exam: Clear to Ausculation Bilateral, NORMAL BREATHING PATTERN. absent: Rhonchi, Wheezes - Cardiovascular Exam Cardiovascular Exam: REGULAR RHYTHM, +S1, +S2 - GI/Abdominal Exam GI & Abdominal Exam: Soft, Normal Bowel Sounds. absent: Tenderness - Neurological Exam Neurological Exam: Alert, Awake, CN II-XII Intact, Oriented x3 - Psychiatric Exam Psychiatric exam: Normal Affect, Normal Mood - Skin Skin Exam: Dry, Intact Assessment and Plan - Assessment and Plan (Free Text) Assessment: 68 year old male with PMHx HTN, atrial fibrillation, PVD, CKD, COPD, and chronic alcohol abuse presenting initially for frequent falls, found to have right-sided thalamic hemorrhage, complete occulsion of R ICA, high-grade stenosis of R verterbral artery Plan: Right thalamic hemorrhage Imaging -12/09/18 CT Head - Subacute right thalamic hemorrhage with 10 mm midline shift towards the left but no downward herniation. 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 -12/02/18 CT head: Centered in the right thalamus with apparent extension to the right lateral ventricle there is a 4.3 x 2.1 x 3.0 centimeter focal area of acute hemorrhage. There is surrounding edema as well as local mass-effect. Apparent midline shift to the left measuring approximately 4 millimeters. Further evaluation with MRI/MRA would be helpful if clinically indicated. -12/02/18 CTA head/neck: There is occlusion of the proximal left common carotid artery. Complete occlusion of the right internal carotid artery. High-grade stenosis of the right vertebral artery with small caliber hypoplastic appearing left vertebral artery. There is intra cerebral flow into the anterior middle cerebral arteries via the [id number] provided by the both vertebral arteries. No evidence of large aneurysm nor vascular malformation. -12/03/[address] head: Redemonstrated is a elliptical shaped on hematoma in the right thalamus which measures approximately 3.5 x 1.8 x 3.2 cm.. This hematoma surrounded by a demarcating rim of low-attenuation edema and or necrotic brain tissue. The hemorrhage and surrounding attendant edema exert adjacent mass effect with compression of the right lateral ventricle and slight shift of the septum pellucidum from right to left approximately 7 mm. Hemorrhage is also decompressed into the right frontal horn and to a lesser degree mid body of the right lateral ventricle.. Small amount of hemorrhage is also seen layering in the dependent portion of both occipital horns. There is a moderate-sized hemorrhage within the right thalamus surrounded by a rim of low- attenuation edema. Hemorrhage and edema exert adjacent mass effect with compression of the right lateral ventricle and mild shift of the septum pellucidum from right to left. Hemorrhage has decompressed into the ventricular system as above. Mild chronic white matter ischemic changes with brainstem and suspected bilateral basal nuclei ischemic changes. Moderate generalized volume loss. -12/04/18 Lumbar MRI without contrast: No definite disc herniation or severe stenosis appreciated. Straightened lumbar curvature is noted with multilevel disc bulging and facet arthropathy affecting the mid to inferior lumbar spine, seen worst at L4-5 where mild central canal stenosis results. Overall pattern only slightly worsened compared to prior CT lumbar spine 02/09/2016. -Repeat non-contrast CT Head 12/[address] Metcalf - Thalamic hemorrhage on the right showing no significant improvement from most recent prior head CT on 12/02. -Continue to hold anticoagulation. Will continue to follow with cardio and discuss when to restart eliquis for A fib. -Continue PT/OT/speech. D/c to [facility] when stable (patient accept to [facility] per CM) -Monitor blood pressure Assessment and plan d/w Dr. Dixon Aguillon, PGY-1 <Jess Metcalf - Last Filed: 12/24/18 23:47> Objective - Vital Signs/Intake and Output Vital Signs (last 24 hours): Temp Pulse Resp BP Pulse Ox 98.6 F 66 18 162/70 H 96 12/12/18 07:50 12/12/18 07:50 12/12/18 07:50 12/12/18 07:50 12/12/18 07:50 - Labs Labs: 12/11/18 14:09 12/11/18 14:09 APTT 32 SECONDS (21-34) 12/02/18 20:10 Assessment and Plan - Assessment and Plan (Free Text) Assessment: All medical record entries made by the Resident were at my direction and personally dictated by me. IN addition, i examined the patient independently. I have reviewed the chart and agree that the record accurately reflects my personal performance of the history, physical exam, medical decision making, and the department course for this patient. I have also personally directed, reviewed, and agree with the discharge instructions and disposition. Mr. Patel is a gentleman who has previous history of completely occluded ICa, now with hemorrhage, hypertensive in right thalamus. He has left sided weakness and will be monitored with neuro checks and serial ct head scans. DR. Metcalf Neurology
[2018-12-11] MEDS: Ciprofloxacin 400mg/200ml D5W 400 MG/200 ML BAG IVPB SCH ×2 (10:00→21:43)
--- NOTE | 2018-12-11 13:46 | CP.PCM.PN ---
Subjective - Date & Time of Evaluation Date of Evaluation: 12/06/18 Time of Evaluation: 13:46 - Subjective Subjective: Patient is somewhat confused. He is sitting up. Eating well. Poor appetite noted. Nausea vomiting chills noted On examination: Vital signs stable otherwise. We will continue the current treatment. Neurological follow-up recommended. Patient is a 68 male admitted with a thalamic bleed hypertension fall alcohol. Objective - Vital Signs/Intake and Output Vital Signs (last 24 hours): Temp Pulse Resp BP Pulse Ox 98.6 F 67 20 177/70 H 98 12/11/18 07:00 12/11/18 08:00 12/11/18 07:00 12/11/18 07:00 12/11/18 08:07 Intake and Output: 12/11/18 12/11/18 06:59 18:59 Intake Total 560 Balance 560 - Medications Medications: Current Medications Ciprofloxacin (Cipro 400mg/200ml Dsw) 400 mg in 200 mls @ 133 mls/hr IVPB Q12H CADY; Protocol Last Admin: 12/11/18 10:00 Dose: 133 mls/hr Pantoprazole Sodium (Protonix Inj) 40 mg IVP DAILY CADY Last Admin: 12/11/18 10:52 Dose: 40 mg - Labs Labs: 12/10/18 09:03 12/10/18 09:03 APTT 32 SECONDS (21-34) 12/02/18 20:10
--- NOTE | 2018-12-11 13:47 | CP.PCM.PN ---
Subjective - Date & Time of Evaluation Date of Evaluation: 12/11/18 Time of Evaluation: 13:47 - Subjective Subjective: Patient is now sleeping. He is comfortable. Following commands. He is eating by himself. He will need physical therapy. Patient has urinary tract infection, currently on ciprofloxacin. We will continue the current treatment. He will be discharged to rehab and will follow up the patient Objective - Vital Signs/Intake and Output Vital Signs (last 24 hours): Temp Pulse Resp BP Pulse Ox 98.6 F 67 20 177/70 H 98 12/11/18 07:00 12/11/18 08:00 12/11/18 07:00 12/11/18 07:00 12/11/18 08:07 Intake and Output: 12/11/18 12/11/18 06:59 18:59 Intake Total 560 Balance 560 - Medications Medications: Current Medications Ciprofloxacin (Cipro 400mg/200ml Dsw) 400 mg in 200 mls @ 133 mls/hr IVPB Q12H CADY; Protocol Last Admin: 12/11/18 10:00 Dose: 133 mls/hr Pantoprazole Sodium (Protonix Inj) 40 mg IVP DAILY CADY Last Admin: 12/11/18 10:52 Dose: 40 mg - Labs Labs: 12/10/18 09:03 12/10/18 09:03 APTT 32 SECONDS (21-34) 12/02/18 20:10
[2018-12-11 14:15] LABS: BASO # 0.1 K/uL (0.0-0.2); BASO % 1.3 % (0.0-2.0); EOS # 0.6 K/uL (0.0-0.7); EOS % 8.1 % (0.0-4.0); HEMOGLOBIN 10.3 g/dL (12.0-18.0); LYMPH # 1.2 K/uL (1.0-4.3); LYMPH % 17.6 % (20.0-40.0); MEAN CORPUSCULAR HEMOGLOBIN 29.7 pg (27.0-31.0); MEAN CORPUSCULAR HGB CONC 32.3 g/dL (33.0-37.0); MONO # 0.7 K/uL (0.0-0.8); MONO % 10.4 % (0.0-10.0); NEUT # 4.4 K/uL (1.8-7.0); NEUT % 62.6 % (50.0-75.0); RBC 3.46 Mil/uL (4.40-5.90); RED CELL DISTRIBUTION WIDTH 15.7 % (11.5-14.5)
[2018-12-11 14:31] LABS: ALBUMIN 3.3 g/dL (3.5-5.0); CALCIUM 9.5 mg/dl (8.6-10.4)
--- NOTE | 2018-12-11 15:08 | CP.PCM.PN ---
<JordanaAnthony - Last Filed: 12/11/18 17:10> Subjective - Date & Time of Evaluation Date of Evaluation: 12/11/18 Time of Evaluation: 15:08 - Subjective Subjective: Dr. Lockhart Service Patient seen and examined at bedside. Per nursing, no acute events occurred overnight . Patient denies any chest pain, fevers, chills, nausea, vomiting, headaches, changes in vision, syncopal episodes, or any other complaints. Objective - Vital Signs/Intake and Output Vital Signs (last 24 hours): Temp Pulse Resp BP Pulse Ox 98.6 F 67 20 177/70 H 98 12/11/18 07:00 12/11/18 08:00 12/11/18 07:00 12/11/18 07:00 12/11/18 08:07 Intake and Output: 12/11/18 12/11/18 06:59 18:59 Intake Total 560 600 Output Total 100 Balance 560 500 - Medications Medications: Current Medications Ciprofloxacin (Cipro 400mg/200ml Dsw) 400 mg in 200 mls @ 133 mls/hr IVPB Q12H CADY; Protocol Last Admin: 12/11/18 10:00 Dose: 133 mls/hr Pantoprazole Sodium (Protonix Inj) 40 mg IVP DAILY CADY Last Admin: 12/11/18 10:52 Dose: 40 mg - Labs Labs: 12/11/18 14:09 12/11/18 14:09 APTT 32 SECONDS (21-34) 12/02/18 20:10 - Head Exam Head Exam: ATRAUMATIC, NORMAL INSPECTION - Eye Exam Eye Exam: EOMI, Normal appearance - ENT Exam ENT Exam: Mucous Membranes Moist, Normal Oropharynx - Respiratory Exam Respiratory Exam: Clear to Ausculation Bilateral, NORMAL BREATHING PATTERN. absent: Prolonged Expiratory Phase, Respiratory Distress - Cardiovascular Exam Cardiovascular Exam: REGULAR RHYTHM, +S1, +S2 - GI/Abdominal Exam GI & Abdominal Exam: Soft, Normal Bowel Sounds. absent: Hyperactive Bowel Sounds - Extremities Exam Extremities Exam: Full ROM, Normal Inspection. absent: Pedal Edema - Back Exam Back Exam: NORMAL INSPECTION. absent: paraspinal tenderness - Neurological Exam Neurological Exam: Alert, Awake - Psychiatric Exam Psychiatric exam: Normal Affect, Normal Mood. absent: Depressed - Skin Skin Exam: Dry, Intact Assessment and Plan - Assessment and Plan (Free Text) Assessment: 68 years old male with hx of Chronic A Fib on Eliquis bid, Alcohol abuse and CKD. He comes to the ED because of worsening of his weakness today, unsteady gait and frequent falls. CT on 12/02 shows right thalamic bleed, neuro and neurosx consult. Plan: Right thalamic bleed CT head - right thalamic bleed CTA of head and neck - occlusion of the proximal left common carotid artery carotid carotid artery. Complete occlusion of the right internal carotid artery. High-grade stenosis of the right vertebral artery with small caliber hypoplastic appearing left vertebral artery CT head repeat - right thalamic bleed still visible - There is a moderate-sized hemorrhage within the right thalamus surrounded by a rim of low-attenuation edema. Hemorrhage has decompressed into the ventricular system CT head repeat: Subacute right thalamic hemorrhage with 10 mm midline shift towards the left but no downward herniation. 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 Neurology Dr. Metcalf Consulted. Help appreciated. Chronic afib -Eliquis 2.5MG po bid . Hypothyroidism -Synthroid 25mcg PO ACB PPx DVT: c/i for SCDs due to PVD and leg stents, C/i VTE due to cerebral bleed GI: Protonix PT/OT Plan discussed with Attending Dr. Lockhart. Anthony Silveira, PGY2 <Isaiah Lockhart - Last Filed: 12/11/18 21:42> Objective - Vital Signs/Intake and Output Vital Signs (last 24 hours): Temp Pulse Resp BP Pulse Ox 99.2 F 62 20 154/66 H 97 12/11/18 15:15 12/11/18 15:15 12/11/18 15:15 12/11/18 15:15 12/11/18 15:15 Intake and Output: 12/11/18 12/12/18 18:59 06:59 Intake Total 600 Output Total 100 Balance 500 - Medications Medications: Current Medications Ciprofloxacin (Cipro 400mg/200ml Dsw) 400 mg in 200 mls @ 133 mls/hr IVPB Q12H CADY; Protocol Last Admin: 12/11/18 10:00 Dose: 133 mls/hr Pantoprazole Sodium (Protonix Inj) 40 mg IVP DAILY CADY Last Admin: 12/11/18 10:52 Dose: 40 mg - Labs Labs: 12/11/18 14:09 12/11/18 14:09 APTT 32 SECONDS (21-34) 12/02/18 20:10 Assessment and Plan - Assessment and Plan (Free Text) Assessment: Patient seen and evaluated personally by me. Plan of care d/w the resident and as documented
[2018-12-12 08:25] VITALS: BP 162/70; PULSE 66; RESP 18; TEMP 98.6; O2SAT 96
[2018-12-12] MEDS: Ciprofloxacin 400mg/200ml D5W 400 MG/200 ML BAG IVPB SCH (09:01)
--- NOTE | 2018-12-12 15:46 | CP.PCM.PN ---
<Tawanda Aguillon - Last Filed: 12/12/18 15:48> Subjective - Date & Time of Evaluation Date of Evaluation: 12/12/18 Time of Evaluation: 15:46 - Subjective Subjective: PGY-[address] Metcalf Patient seen and examined at bedside. No acute events overnight. Patient had been continuing with PT/OT. Patient cleared for discharge per neuro --> he has been officially discharged to [facility] by primary. Objective - Vital Signs/Intake and Output Vital Signs (last 24 hours): Temp Pulse Resp BP Pulse Ox 98.6 F 66 18 162/70 H 96 12/12/18 07:50 12/12/18 07:50 12/12/18 07:50 12/12/18 07:50 12/12/18 07:50 Intake and Output: 12/12/18 12/12/18 06:59 18:59 Intake Total 120 Balance 120 - Labs Labs: 12/11/18 14:09 12/11/18 14:09 APTT 32 SECONDS (21-34) 12/02/18 20:10 - Constitutional Appears: Non-toxic, No Acute Distress, Confused - Head Exam Head Exam: ATRAUMATIC, NORMOCEPHALIC - Eye Exam Eye Exam: Normal appearance - ENT Exam ENT Exam: Mucous Membranes Moist - Respiratory Exam Respiratory Exam: Clear to Ausculation Bilateral, NORMAL BREATHING PATTERN. absent: Rhonchi, Wheezes - Cardiovascular Exam Cardiovascular Exam: REGULAR RHYTHM, +S1, +S2 - GI/Abdominal Exam GI & Abdominal Exam: Soft, Normal Bowel Sounds. absent: Tenderness - Neurological Exam Neurological Exam: Alert, Awake, CN II-XII Intact Neuro motor strength exam: Left Upper Extremity: 5, Right Upper Extremity: 5, Left Lower Extremity: 5, Right Lower Extremity: 5 Additional comments: New baseline confusion - Psychiatric Exam Additional comments: Expressing discontent with current clinical/mental state - Skin Skin Exam: Dry, Intact, Warm Assessment and Plan - Assessment and Plan (Free Text) Assessment: 68 year old male with PMHx HTN, atrial fibrillation, PVD, CKD, COPD, and chronic alcohol abuse presenting initially for frequent falls, found to have right-sided thalamic hemorrhage, complete occulsion of R ICA, high-grade stenosis of R verterbral artery. Discharged to [facility]. Plan: Right thalamic hemorrhage Imaging -12/09/18 CT Head - Subacute right thalamic hemorrhage with 10 mm midline shift towards the left but no downward herniation. 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 -12/02/18 CT head: Centered in the right thalamus with apparent extension to the right lateral ventricle there is a 4.3 x 2.1 x 3.0 centimeter focal area of acute hemorrhage. There is surrounding edema as well as local mass-effect. Apparent midline shift to the left measuring approximately 4 millimeters. Further evaluation with MRI/MRA would be helpful if clinically indicated. -12/02/18 CTA head/neck: There is occlusion of the proximal left common carotid artery. Complete occlusion of the right internal carotid artery. High-grade stenosis of the right vertebral artery with small caliber hypoplastic appearing left vertebral artery. There is intra cerebral flow into the anterior middle cerebral arteries via the [id number] provided by the both vertebral arteries. No evidence of large aneurysm nor vascular malformation. -12/03/[address] head: Redemonstrated is a elliptical shaped on hematoma in the right thalamus which measures approximately 3.5 x 1.8 x 3.2 cm.. This hematoma surrounded by a demarcating rim of low-attenuation edema and or ne crotic brain tissue. The hemorrhage and surrounding attendant edema exert adjacent mass effect with compression of the right lateral ventricle and slight shift of the septum pellucidum from right to left approximately 7 mm. Hemorrhage is also decompressed into the right frontal horn and to a lesser degree mid body of the right lateral ventricle.. Small amount of hemorrhage is also seen layering in the dependent portion of both occipital horns. There is a moderate-sized hemorrhage within the right thalamus surrounded by a rim of low- attenuation edema. Hemorrhage and edema exert adjacent mass effect with compression of the right lateral ventricle and mild shift of the septum pellucidum from right to left. Hemorrhage has decompressed into the ventricular system as above. Mild chronic white matter ischemic changes with brainstem and suspected bilateral basal nuclei ischemic changes. Moderate generalized volume loss. -12/04/18 Lumbar MRI without contrast: No definite disc herniation or severe stenosis appreciated. Straightened lumbar curvature is noted with multilevel disc bulging and facet arthropathy affecting the mid to inferior lumbar spine, seen worst at L4-5 where mild central canal stenosis results. Overall pattern only slightly worsened compared to prior CT lumbar spine 02/09/2016. -Repeat non-contrast CT Head 12/[address] Metcalf - Thalamic hemorrhage on the right showing no significant improvement from most recent prior head CT on 12/02 -Continue to hold anticoagulation continue to hold ASA -Patient cleared for discharge per Neuro --> patient has been discharged to [facility] Assessment and plan d/w Dr. Dixon Aguillon, PGY-1 <DixonJulio Césardeneen - Last Filed: 12/24/18 23:33> Objective - Vital Signs/Intake and Output Vital Signs (last 24 hours): Temp Pulse Resp BP Pulse Ox 98.6 F 66 18 162/70 H 96 12/12/18 07:50 12/12/18 07:50 12/12/18 07:50 12/12/18 07:50 12/12/18 07:50 - Labs Labs: 12/11/18 14:09 12/11/18 14:09 APTT 32 SECONDS (21-34) 12/02/18 20:10 Assessment and Plan - Assessment and Plan (Free Text) Assessment: All medical record entries made by the Resident were at my direction and personally dictated by me. IN addition, i examined the patient independently. I have reviewed the chart and agree that the record accurately reflects my personal performance of the history, physical exam, medical decision making, and the department course for this patient. I have also personally directed, reviewed, and agree with the discharge instructions and disposition. I agree with the residents assessment and plan and will add the following: Mr Patel is a 68 yr old male who had a hypertensive thalamic hemorrhage, that we have been monitoring for several days to assess resolution. He has improved steadily and is now ready to be dcd to [facility] with neurology followup. He has also been counseled about controlling his hypertension. Dr. Metcalf Neurology
--- NOTE | 2019-01-15 06:56 | DS ---
HISTORY: A 68-year-old male with a history of peripheral vascular disease, atrial fibrillation, hypertension, chronic renal failure, and alcoholism, admitted to the hospital following recurrent falls. The patient, three months ago, has made a fall. At that time, he had cellulitis and sepsis. Now, he is brought to the emergency room because of the fall, was having some ecchymosis. He was alert and oriented in the emergency room, had a CT scan of the head and showing evidence of thalamic bleed, and he needed hospitalization. The patient was initially hospitalized to the intensive care unit. Neurosurgical team was called in. The patient was not a candidate for intervention or surgery. Closely, he was monitored in the ICU also for alcoholic withdrawal. The patient in the past had surgical intervention for the right open wound in the right leg. He had a tonsillectomy in the past. The patient used to be a smoker. He also drinks alcohol. Lives by himself. Clinical examination was unremarkable except multiple ecchymotic skin changes, excoriations, old healed right leg ulcer. A CAT scan is showing evidence of right thalamic bleed. ASSESSMENT AND RECOMMENDATION: At that time, a 68-year-old male admitted with atrial flutter, fibrillation, peripheral vascular disease, hypertension, history of gout, and chronic obstructive pulmonary disease, now admitted with a thalamic bleed. The patient was initially placed on anticoagulation for the atrial flutter, which is now on hold. He will be closely monitored neurologically in the intensive care unit. Over a course of next few days, the patient was monitored. Neurosurgical and neurology evaluation was called in. The patient is off on anticoagulation. Meanwhile, he developed urinary tract infection. The patient was started on ciprofloxacin. Clinically stable. He will be discharged to rehabilitation. FINAL DIAGNOSES: Acute thalamic bleed secondary to fall, hypertension. The patient also has a history of alcoholism, atrial flutter/fibrillation, peripheral vascular disease, history of gout, and history of chronic obstructive pulmonary disease. The patient is clinically stable. His anticoagulation will be on hold until neurologically cleared. He will be followed up in the rehab. Medications reviewed and reconciled. Denise Gallardo MD
== END 2018-12-12 15:42 | DRG 86 ==
LOC: C.ER 18:20 → C.9E 21:52 → C.9I 12-03 00:30 → C.6T 12-07 14:53
PROVIDERS: ADMIT Internal Medicine; ATTEND Internal Medicine
DX: S06.2X0A Diffuse traumatic brain injury without loss of consciousness, initial encounter (principal); F10.239 Alcohol dependence with withdrawal, unspecified; I48.92 Unspecified atrial flutter; N39.0 Urinary tract infection, site not specified; W19.XXXA Unspecified fall, initial encounter; Z91.81 History of falling; F17.290 Nicotine dependence, other tobacco product, uncomplicated; I12.9 Hypertensive chronic kidney disease with stage 1 through stage 4 chronic kidney disease, or unspecified chronic kidney disease; I48.2 Chronic atrial fibrillation; I73.9 Peripheral vascular disease, unspecified; J44.9 Chronic obstructive pulmonary disease, unspecified; D63.8 Anemia in other chronic diseases classified elsewhere; E03.9 Hypothyroidism, unspecified; E78.5 Hyperlipidemia, unspecified; E87.6 Hypokalemia; N18.3 Chronic kidney disease, stage 3 (moderate); F10.20 Alcohol dependence, uncomplicated; R29.6 Repeated falls; Z80.9 Family history of malignant neoplasm, unspecified; Z82.49 Family history of ischemic heart disease and other diseases of the circulatory system; Z86.73 Personal history of transient ischemic attack (TIA), and cerebral infarction without residual deficits; R27.8 Other lack of coordination